=== PATIENT | male | born 1965 | race Caucasian/White ===

== ENCOUNTER 2018-03-09 13:41 | Emergency (ER) | payer MEDICAID, SELFPAY ==
[2018-03-09 13:43] VITALS: BP 145/85; PULSE 131; RESP 18; TEMP 37.2; O2SAT 96; BMI 25.6
[2018-03-09 14:31] VITALS: PULSE 97; O2SAT 97
--- NOTE | 2018-03-09 14:32 | ED.VISSUMM ---
- ER Visit Summary Date of Service: 03/09/18 Chief Complaint: Sinus pain History of Present Illness: The patient is a 52 M who presents with facial pain. He states his congestion is worse when he leans forward. He reports no change in his pain. He denies any double vision, blurred vision loss of vision. Denies ringing in his ears or decreased hearing. He denies postnasal drainage. He denies sore throat. He has a chronic cough. His cough is nonproductive. He denies any paresthesia, anesthesia buttocks. Denies clumsiness or falling. He states she has had sinus headaches in the past. Past medical history of depression anxiety. Physical Examination: Vital signs were remarkable heart rate 131. Repeat vital signs revealed a heart rate of 97. He appears in no distress. There is mild discomfort with tapping over the left maxillary sinus. Pupils equal round reactive paradoxic muscle intact. Sclerae anicteric. Conjunctive is not injected. TMs are normal. Nares patent no drainage noted. Posterior pharynx without erythema XA. Uvula is midline. Heart is regular without murmur, gallop or rub. S1 and S2 are normal. Lungs are clear to auscultation with good movement of air bilaterally. Test Results: None Emergency Department Course and Treatment: Patient was informed he probably has sinus pressure from his congestion. Recommended decongestant since there is no contraindication. Treatment Plan: Decongestant Disposition: Discharged to home Impression: Sinus headache This note was generated with [employer] dictation software. It may contain incorrect words, spelling, and punctuation that were not noted in review of the chart prior to signing ED Disposition - Plan for ED Patient: Disposition: Home or Assisted Living Chief Complaint: Headache Instructions: ED Headache Sinus Referrals: Yasir Parada MD [Primary Care Provider] - 10-14 Days if not better
[2018-03-09 15:04] VITALS: BP 135/77; PULSE 61; RESP 15; O2SAT 98
== END 2018-03-09 15:05 | disposition home or self-care (01) ==
PROVIDERS: Emergency Provider Emergency Medicine; Family Provider Family Medicine; PCP Family Medicine
DX: J34.89 Other specified disorders of nose and nasal sinuses (principal); F32.9 Major depressive disorder, single episode, unspecified; F41.9 Anxiety disorder, unspecified; Z79.899 Other long term (current) drug therapy; Z72.0 Tobacco use
CPT/HCPCS: 99282

== ENCOUNTER 2018-03-26 15:11 | Emergency (ER) | payer MEDICAID, SELFPAY ==
[2018-03-26 15:11] VITALS: BP 127/83; PULSE 85; PULSE 94; RESP 16; RESP 18; TEMP 37; TEMP 37.3; O2SAT 97; BMI 24.7
[2018-03-26 15:55] LABS: Absolute Lymphocyte Count 1.54 X10^3/ul (0.83-4.51); Absolute Neutrophil Count 4.8 X10^3/uL (2.0-7.7); Basophil# 0.05 X10^3/uL; Basophil% 0.7 % (0-1); Hematocrit 42.9 % (40-54); Hemoglobin 14.6 g/dl (13.0-16.5); Lymphocyte # 1.54 X10^3/ul (4.0); Lymphocyte % 20.8 % (19-41); Mean Corpuscular Hgb 30.7 pg (27.0-32.0); Mean Corpuscular Volume 90.1 fL (80-94); Mean Platelet Vol. 8.9 fl (6.2-12.0); Monocyte# 0.76 X10^3/uL; Monocyte% 10.2 % (0-10); Neutrophil # 4.76 X10^3/uL (2.7-7.7); Neutrophil % 64.2 % (47-70); Platelet Count 229 K/mm3 (150-450); RBC Distribution Width CV 13.2 % (11.6-14.6); RBC Distribution Width SD 43.4 fl (35.1-43.9); Red Blood Count 4.76 M/mm3 (4.6-6.2); White Blood Count 7.4 K/mm3 (4.4-11.0)
[2018-03-26 15:56] LABS: POSITIVE COUNT NO; POSITIVE DIFFERENTIAL NO; POSITIVE MORPHOLOGY NO
--- NOTE | 2018-03-26 16:04 | CT_ITS ---
STUDY: CT ABDOMEN AND PELVIS WITH CONTRAST REASON FOR EXAM: Male, 52 years old. Abdominal pain RADIATION DOSAGE (If Supplied By Facility): CTDIvol = ( 15.36 ) mGy, DLP = ( 959.28 ) mGycm TECHNIQUE: Transaxial images were obtained from the dome of the diaphragm to the symphysis pubis without oral contrast. 100 ml of Isovue 300 contrast was administered. Sagittal and coronal images were reconstructed. Individualized dose optimization techniques were used for this CT. COMPARISON: CT dated 09/25/2015. FINDINGS: The visualized lung bases are clear. The visualized portions of the heart and pericardium are within normal limits. There are no calcified gallstones present. The liver is within normal limits. There are no suspicious hepatic lesions. The spleen is normal in size. The pancreas is within normal limits. The adrenal glands are within normal limits. There are no renal or ureteral stones. There is no hydronephrosis. There are no focal renal lesions. Normal visualized stomach. There is no bowel obstruction or inflammation. The appendix is visualized and appears normal. The aorta is normal in caliber. There is no abdominal or pelvic free air, free fluid, fluid collection or lymphadenopathy. There are no destructive osseous lesions. There are stable degenerative changes in the lumbar spine. CT/Abdomen/Pelvis WITH Contrast IMPRESSION: No acute abdominal or pelvic pathology. Electronically Signed: Chip Martin, at 18:13 EDT Tel , Service support ,
[2018-03-26 16:07] LABS: ALB/GLOB Ratio 1.1 RATIO (0.9-2.4); AST(SGOT) 21 U/L (15-37); Alanine Aminotransfer ALT/SGPT 26 U/L (16-61); Albumin, Serum 3.9 g/dL (3.2-5.0); Alkaline Phosphatase 88 U/L (45-117); Anion Gap 6 (5-15); BUN 9 mg/dL (7-18); BUN/Creat Ratio 8.7 RATIO (10-20); Chloride 106 mmol/L (98-107); Creatinine, Serum 1.04 mg/dL (0.70-1.30); EST Glomerular Filtration Rate 79 mL/min (>60); Est Glom Filt Rate - Afr Amer 96 mL/min (>60); Globulin 3.7 g/dL (2.2-4.2); Glucose 82 mg/dL (74-106); Lipase 156 U/L (73-393); Potassium 3.8 mmol/L (3.5-5.1); Protein, Total 7.6 g/dL (6.4-8.2); Sodium Level 139 mmol/L (136-145)
--- NOTE | 2018-03-26 16:08 | RAD_ITS ---
STUDY: X-RAY CHEST REASON FOR EXAM: Male, 52 years old. Right upper quadrant pain TECHNIQUE: Frontal view of the chest COMPARISON: 11/02/2016 FINDINGS: The lungs are clear. There are no pleural effusions. There is no pneumothorax. The heart is normal in size. The visualized osseous structures are within normal limits. RAD/Chest 1 View IMPRESSION: No acute thoracic pathology. Electronically Signed: Chip Martin, at 16:41 EDT Tel , Service support ,
[2018-03-26] MEDS: 0.9% Normal Saline 1,000 ML 125 ML IV (16:30)
[2018-03-26 16:35] LABS: Lactic Acid 0.5 mmol/L (0.4-2.0)
--- NOTE | 2018-03-26 16:57 | ED.DCSUM_ITS ---
- ER Visit Summary Date of Service: 03/26/18 Chief Complaint: [Abdominal pain] History of Present Illness: The patient is a 52 M [presents the emergency department complaint of abdominal pain for over a week. Patient apparently has had a significant weight loss of close to 50 pounds over last 6 months. Patient complains of night sweats. Patient complains of pain when eating food mostly to the right upper quadrant. Patient has been seeing primary care physician and is currently being worked up and had an ultrasound today of the right upper quadrant. Patient got a call stating that his gallbladder was markedly collapsed and instructed him that he needed to come to the emergency department. Patient denies any chest pain or shortness of breath. Patient denies any fevers at home. He denies any diarrhea. Last bowel movement was this morning. Patient scheduled to have colonoscopy next week with Dr. Graciela Fair.] Physical Examination: [HEENT-PERRLA, EOMI. Cranial nerves II through XII grossly intact. TMs clear. Mucous membranes moist. No adenopathy. Cardiovascular-regular rate and rhythm without murmur or ectopy Lungs-clear to auscultation, chest wall stable without crepitus or subcu emphysema Abdomen-normoactive bowel sounds, soft. Patient has tender palpation over right upper quadrant with some guarding. There is no rebound, rigidity, or perineal signs. There is a negative Couch sign. Extremities-intact ?4, normal range of motion, normal pulses, atraumatic] Test Results: [CBC with differential obtained showed a white count of 7.4, hemoglobin 14.6, hematocrit 43, platelets 229. Chemistries unremarkable. LFTs were normal. Lipase was normal at 156. Lactate was normal 0.5. I did obtain the ultrasound report from today which was read as gallbladder markedly collapsed without evidence for Stella lithiasis. No pericholecystic fluid collection or convincing sonographic evidence for acute cholecystitis. No biliary dilatation.] CT scan of the abdomen and pelvis obtained was normal. Patient also had a chest x-ray that was normal. Emergency Department Course and Treatment: [] Treatment Plan: [Patient to keep his appointment with Dr. Graciela Fair for colonoscopy and patient may require EGD as well.] Disposition: [Discharged home in stable condition] Impression: [Abdominal pain-etiology uncertain] This note was generated with [employer] software. It may contain incorrect words, spelling, and punctuation that were not noted in review of the chart prior to signing ED Disposition - Plan for ED Patient: Chief Complaint: Abd Pain Referrals: Yasir Parada MD [Primary Care Provider] -
[2018-03-26 17:11] VITALS: BP 138/74; PULSE 74; RESP 18; O2SAT 96
--- NOTE | 2018-03-26 18:30 | ED.DEP ---
ED Disposition - Plan for ED Patient: Chief Complaint: Abd Pain Instructions: ED Abdominal Pain Unkn Cause Referrals: Yasir Parada MD [Primary Care Provider] - Graciela Fair MD [STAFF PHYSICIAN] - 5-7 Days
== END 2018-03-26 18:49 | disposition home or self-care (01) ==
PROVIDERS: Emergency Provider Emergency Medicine; Family Provider Family Medicine; PCP Family Medicine
DX: R10.11 Right upper quadrant pain (principal); J44.9 Chronic obstructive pulmonary disease, unspecified; E78.00 Pure hypercholesterolemia, unspecified; F12.90 Cannabis use, unspecified, uncomplicated; Z72.0 Tobacco use
CPT/HCPCS: 71045; 74177; 80053; 83605; 83690; 85025; 96360; 96361; 99283; J7030; Q9967; A4216

== ENCOUNTER 2018-04-01 12:58 | Day surgery (SDC) | payer MEDICAID, SELFPAY ==
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
[2018-04-01] VITALS (7 sets, daily range): BP systolic 81–112; BP diastolic 46–83; PULSE 72–81; RESP 16–18; TEMP 36.8; O2SAT 98–100; BMI 25.6
--- NOTE | 2018-04-01 | IMM_PTH ---
PATIENT: RACHEL SALMON LOC: EN U#:[id number] AGE/SX: 52/M ROOM: RE04/01/[address]: Dr. Onofre Salazar MD : 1965 BED: DIS: 04/01/2018 SPEC #: [id number] RECD: 04/03/18 11:13 STATUS: RIMA REQ #: [id number] JACINTO: 04/01/18 00:[address]: Onofre Salazar DEPT: IMMUNOHISTOCHEMISTRY RECD BY: Ana Cristina Villanueva ENTERED: 04/03/18 11:16 SP TYPE: IMMUNO OTHR DR: Dr. Yasir Parada MD Tissues: B - Stomach, NOS Procedures: H Pylori (initial) PHYSICIAN & INSTITUTION [place] [id number] SPECIMEN INFORMATION: Tissue Source: B ? Biopsy gastric antrum Clinical Info: Weight loss, nausea, heartburn, abdominal pain Specimen Number: [id number] CPT code: 77465 METHODOLOGY: Deparaffinized sections of prefer/formalin-fixed tissue or PAP/DQ stained slides are incubated with monoclonal/polyclonal antibodies/oligonucleotide probes. Localization is made via biotin free immunoperoxidase method. Appropriate controls are performed and reacted as expected. Results on target cell population are indicated in the following table: RESULTS: ANTIBODY / CLONE RESULT Block B H Pylori (polyclonal) negative These tests were developed and their performance characteristics determined by [facility]. They may not have been cleared or approved by the U.S. Food and Drug Administration. The FDA has determined that such clearance or approval is not necessary. INTERPRETATION: B. Gastric antrum, biopsy: Negative for Helicobacter pylori organisms. AM:misty 04/06/18
--- NOTE | 2018-04-01 14:00 | EGD_PTH ---
PATIENT: RACHEL SALMON LOC: EN U#:[id number] AGE/SX: 52/M ROOM: RE04/01/[address]: Dr. Onofre Salazar MD : 1965 BED: DIS: 04/01/2018 SPEC #: [id number] RECD: 04/01/18 15:21 STATUS: RIMA CHUCK #: [id number] JACINTO: 04/01/18 14:[address]: Onofre Salazar DEPT: SURGICAL PATHOLOGY RECD BY: Onofre Florian ENTERED: 04/02/18 10:09 SP TYPE: EGD BIOPSY REED DR: Dr. Yasir Parada MD Tissues: A - Jejunum, NOS B - Gastric mucous membrane C - Esophageal mucous membrane D - COLON BIOPSY Procedures: Surgery Specimen Level IV HEADER OPERATION: Colonoscopy, EGD ([facility]) PRE-OP DIAGNOSIS: Weight loss, nausea, heartburn, abdominal pain; family history of colon cancer; personal history of colon polyps TISSUE SUBMITTED: A ? Biopsy jejunum, B ? Biopsy gastric antrum, C ? Biopsy distal esophagus ? esophagitis, D ? Biopsy random colon MICROSCOPIC DIAGNOSIS A. Jejunum, biopsy: Focal gastric metaplasia. B. Gastric antrum, biopsy: Mild chronic gastritis. C. Distal esophagus, biopsy: Gastroesophageal junction mucosa with acute and chronic inflammation. 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 No evidence of dysplasia. D. Colon, random biopsy: No pathologic diagnosis. AM:misty 04/03/18 COMMENT B. The results of immunohistochemistry for Helicobacter pylori will be reported separately ([id number]). MICROSCOPIC DESCRIPTION Slides are reviewed. GROSS DESCRIPTION A - Received in fixative is one container labeled with the patient's name and designated biopsy jejunum. The specimen consists of one irregular fragment of light phillips soft tissue that measures 0.3 x 0.3 x 0.1 cm. The specimen is totally submitted in one cassette. B - Received in fixative is one container labeled with the patient's name and designated biopsy gastric antrum. The specimen consists of one irregular fragment of light phillips soft tissue that measures 0.4 x 0.3 x 0.1 cm. The specimen is totally submitted in one cassette. C - Received in fixative is one container labeled with the patient's name and designated distal esophagus. The specimen consists of one irregular fragment of light phillips soft tissue that measures 0.3 x 0.3 x 0.1 cm. The specimen is totally submitted in one cassette. D - Received in fixative is one container labeled with the patient's name and designated random colon biopsy. The specimen consists of one irregular fragment of light phillips soft tissue that measures 0.3 x 0.2 x 0.1 cm. The specimen is totally submitted in one cassette. / SJ:rg 04/02/18 TC:3 CPT: 93982 x4
--- NOTE | 2018-04-01 14:15 | PCM.OPRPT ---
Report of Operation Date of Procedure: 04/01/18 Pre-Operative Diagnosis: weight loss, abdominal pain , nausea, hostory of polyps Post-Operative Diagnosis: mild gastritis, distal esophagitis, normal colon, poor prep Surgery/Procedure Performed:: EGD with biopsy, Colonoscopy with biopsy analytical statistician: None Type of Anesthesia:: MAC Anesthesiologist: Phong Holland ASA3 Specimen's removed: jejunal, gastric, esophageal, random colon Description of Procedure: The patient was brought to the endoscopy suite. Sign in was performed verifying patient, site, planned procedure, critical nursing information, the patient was monitored with cardiac, pulse oximetric, and blood pressure monitoring devices. Monitored anesthetic care was provided for sedation. Following IV sedation and after the oropharynx was sprayed with Cetacaine spray, a video gastroscope was inserted in the oropharynx and advanced down the esophagus without difficulty. The scope was advanced through the stomach, through the pylorus through the duodenum to the proximal jejunum.the jejunum appeared unremarkable. The duodenum appeared unremarkable. There was mild erosive gastritis. This was biopsied. The remainder of the stomach appeared relatively unremarkable except for some again mild erosive proximal gastritis. There is felt to be significantly irregular Z line consistent with reflux esophagitis. Biopsies obtained to rule out Barr's esophagitis. The remainder the proximal esophagus was unremarkable. The patient was positioned for colonoscopy. A digital rectal exam was performed which revealed a relatively lax lower sphincter. Bowel prep was fair. The video colonoscope was inserted and advanced to the cecum as verified by the ileocecal valve, cecal base anatomic features and palpation. the entire colon and rectum were unremarkable. Random biopsies performed in the sigmoid area The patient tolerated the procedure well and was brought to recovery in stable condition
== END 2018-04-01 15:04 | disposition home or self-care (01) ==
LOC: EN 12:59 → AC 13:00
PROVIDERS: Family Provider Family Medicine; PCP Family Medicine; Visit Provider Surgery
PROC: 0DJD8ZZ Inspection of Lower Intestinal Tract, Via Natural or Artificial Opening Endoscopic (ICD-10-PCS; CPT 45378; principal; 2018-04-01 13:55)
DX: R19.4 Change in bowel habit (principal); R63.4 Abnormal weight loss; R10.11 Right upper quadrant pain; Z72.0 Tobacco use; K29.50 Unspecified chronic gastritis without bleeding; Z86.010 Personal history of colon polyps; Z80.0 Family history of malignant neoplasm of digestive organs
CPT/HCPCS: 43239; 45380; 88305; 88342; J7120

== ENCOUNTER → 2018-10-12 15:42 | Outpatient (CLI) | payer MEDICAID, SELFPAY ==
--- NOTE | 2018-10-12 15:51 | MRI_ITS ---
STUDY: MRI BRAIN WITH AND WITHOUT CONTRAST REASON FOR EXAM: Male, 53 years old. Hearing loss TECHNIQUE: Standardized multiplanar fat and water weighted pulse sequences were obtained. Gadavist 10 IV was administered for the contrast portion of the examination. COMPARISON: None. FINDINGS: Normal size of the ventricles and extra-axial spaces for the patient's age. There are a limited number of small white matter hyperintensities, distributed throughout the deep white matter tracts of the cerebral hemispheres, consistent with mild chronic white matter ischemic changes. There is no evidence for recent intracranial ischemia or other cause of cytotoxic edema on diffusion weighted imaging (DWI). Normal bilateral basal ganglia. Normal thalami. There is no extra-axial fluid accumulation. Normal flow voids within the major intracranial circulation suggesting patency by spin echo criteria. Normal venous enhancement. There is no enhancing intra-axial or extra-axial abnormality. Normal sella turcica, pituitary gland, infundibular stalk, optic chiasm and hypothalamus. Normal tectal plate and pineal gland. Normal midbrain, sanjeev and medulla. Normal cerebellum. Normal basal cisterns. Normal bilateral temporal bones. Normal bilateral internal auditory canals. No demonstrated orbital abnormality, within the constraints of a routine brain study. Normal visualized paranasal sinuses. Normal calvarium and skull base. Normal visualized soft tissue structures. Normal visualized upper cervical spine. MRI/Brain W/WO Contrast IMPRESSION: There is NO acute intracranial abnormality. There is minimal chronic ischemic gliosis in the white matter. There is NO abnormal enhancement. The 7th and 8th nerve complexes are unremarkable. There is NO mass or abnormal enhancement. The mastoid air cells are clear. Electronically Signed: Oh Jimenez MD at 4:33 EST , Service support ,
== END ==
PROVIDERS: Family Provider Family Medicine; PCP Family Medicine; Referring Provider Otolaryngology; Visit Provider Otolaryngology
DX: H90.5 Unspecified sensorineural hearing loss (principal)
CPT/HCPCS: 70553; A9585

== ENCOUNTER 2018-10-19 18:48 | Emergency (ER) | payer MEDICAID, SELFPAY ==
[2018-10-19 18:49] VITALS: BP 135/88; PULSE 85; RESP 16; TEMP 36.6; O2SAT 100; BMI 28.5
--- NOTE | 2018-10-19 19:00 | RAD_ITS ---
STUDY: X-RAY - CERVICAL SPINE REASON FOR EXAM: Male, 53 years old. Neck pain x 2 weeks, no known injury. TECHNIQUE: 3 view(s) of the cervical spine were obtained. COMPARISON: None FINDINGS: Normal anterior atlantoaxial articulation. Normal odontoid process. Normal cervical lordosis. There is multi-level endplate spondylosis. There is multi-level degenerative disc disease with multilevel disc space narrowing. Generally unremarkable cervical facet articulations. There is minor retrolisthesis of C4 on C5. There are early atherosclerotic vascular calcifications of the carotid arteries. Normal prevertebral soft tissues. There is no demonstrated osseous destructive process or acute fracture of the cervical spine. RAD/Cerv Spine 2 or 3 Views IMPRESSION: Multilevel degenerative changes of the cervical spine. Electronically Signed: Jose Dong MD at 19:27 EST , Service support ,
--- NOTE | 2018-10-19 19:55 | ED.VISSUMM ---
- ER Visit Summary Date of Service: 10/19/18 Chief Complaint: Left neck pain History of Present Illness: The patient is a 53 M with a history of arthritis in his neck presents with left-sided neck pain, worse when looking to the left for the past week. It was present on awakening one morning. He thinks that he slept in an unusual position. No direct trauma. No fever, chills, night sweats. No paresthesias or weakness in his upper extremities. No radiation of the pain. No radicular symptoms. Physical Examination: Mild tenderness paraspinally on the left in the cervical region but no midline tenderness, erythema, or fluctuance. Pain is somewhat worse on looking left. Normal strength and sensation is noted. Strong distal pulses. Test Results: Cervical spine x-ray revealed extensive degenerative changes but no fracture Emergency Department Course and Treatment: Her logic exam is normal. I do not feel he needs an emergent MRI. No evidence of paraspinal or epidural abscess. X-ray reveals degenerative changes. I will treat him with naproxen and Flexeril. He was referred to orthopedics. Treatment Plan: Disposition: Home stable Impression: Initial encounter acute left neck pain This note was generated with [employer] dictation software. It may contain incorrect words, spelling, and punctuation that were not noted in review of the chart prior to signing ED Disposition - Plan for ED Patient: Instructions: ED Neck Back Pain General Prescriptions: Naproxen [Naprosyn] 500 mg PO BID PRN #20 tablet Cyclobenzaprine [Flexeril] 10 mg PO TID PRN #20 tablet PRN Reason: Muscle Spasm Referrals: Ata Tena DO [STAFF PHYSICIAN] -
[2018-10-19 20:04] VITALS: BP 122/78; PULSE 80; RESP 14; O2SAT 98
== END 2018-10-19 20:09 | disposition home or self-care (01) ==
LOC: ED 19:25
PROVIDERS: Emergency Provider Emergency Medicine; Family Provider Family Medicine; PCP Family Medicine
DX: M54.2 Cervicalgia (principal)
CPT/HCPCS: 72040; 99282

== ENCOUNTER 2019-01-06 09:57 | Inpatient (IN) | payer MEDICAID, SELFPAY ==
[2019-01-06] VITALS (18 sets, daily range): BP systolic 93–117; BP diastolic 58–85; PULSE 66–98; RESP 16–27; TEMP 35.9–36.8; O2SAT 90–99; BMI 27.0; BMI 25.7
--- NOTE | 2019-01-06 10:24 | EKG12_ITS ---
Test Reason : CP Blood Pressure : / mmHG Vent. Rate : 097 BPM Atrial Rate : 097 BPM P-R Int : 124 ms QRS Dur : 094 ms QT Int : 350 ms P-R-T Axes : 075 087 068 degrees QTc Int : 444 ms Normal sinus rhythm Normal ECG Confirmed by LAKHWINDER MOHAN ([id number]), newspaper photo editor JOSEPH COPPOLA ([id number]) on 01/14/2019 9:24:14 AM Referred By: Sunshine Bundy Confirmed By:LAKHWINDER MOHAN
--- NOTE | 2019-01-06 10:24 | RAD_ITS ---
STUDY: X-RAY CHEST REASON FOR EXAM: Male, 53 years old. Cough. Chest pain. Shortness of breath. TECHNIQUE: AP and lateral views of the chest. COMPARISON: Comparison is made with prior study dated March 26, 2018. FINDINGS: EKG electrodes are seen. There now is evidence of a patchy infiltrates in both lower lobes worse on the left side. Hyperinflation. Follow-up is recommended. Normal size heart. Normal mediastinum and milla. Normal visualized pulmonary arteries. Normal visualized aortic arch and descending thoracic aorta. Normal visualized thoracic spine. Normal visualized ribs, clavicles, and shoulders. There is no demonstrated abnormality of the visualized soft tissue structures of the upper abdomen. RAD/Chest PA and Lateral IMPRESSION: Bibasilar patchy infiltrates worse on the left side. Electronically Signed: Forrest Chapman, at 11:24 EDT , Service support ,
[2019-01-06] MEDS: MethylPREDNISolone 125 MG/2 ML Vial IV (10:40)
[2019-01-06] MEDS: Morphine 4 MG/ML Syringe IV (10:40)
[2019-01-06] MEDS: Ondansetron 4 MG/2 ML Vial IV (10:40)
[2019-01-06] MEDS: Ipratropium/Albuterol Sulfate 3 ML AMPUL.NEB INHALATION ×3 (10:40→20:15)
[2019-01-06] MEDS: 0.9% Normal Saline 1,000 ML 999 ML IV (10:42)
[2019-01-06 10:54] LABS: Absolute Lymphocyte Count 1.29 X10^3/ul (0.83-4.51); Absolute Neutrophil Count 8.4 X10^3/uL (2.0-7.7); Basophil# 0.03 X10^3/uL; Basophil% 0.3 % (0-1); Eosinophil# 0.06 X10^3/uL; Eosinophils% 0.5 % (0-5); Hematocrit 42.2 % (40-54); Hemoglobin 14.6 g/dl (13.0-16.5); Lymphocyte # 1.29 X10^3/ul (4.0); Lymphocyte % 11.8 % (19-41); Mean Corp Hgb Conc 34.6 g/gl (32-36); Mean Corpuscular Hgb 30.3 pg (27.0-32.0); Mean Corpuscular Volume 87.6 fL (80-94); Mean Platelet Vol. 9.1 fl (6.2-12.0); Monocyte# 1.11 X10^3/uL; Monocyte% 10.2 % (0-10); Neutrophil % 76.8 % (47-70); POSITIVE COUNT NO; POSITIVE DIFFERENTIAL NO; POSITIVE MORPHOLOGY NO; Platelet Count 247 K/mm3 (150-450); RBC Distribution Width SD 41.1 fl (35.1-43.9); Red Blood Count 4.82 M/mm3 (4.6-6.2); White Blood Count 10.9 K/mm3 (4.4-11.0)
[2019-01-06 11:03] LABS: D-Dimer Quantitative (DVT/PE) 1.15 FEU/ug/m (0.27-0.49)
--- NOTE | 2019-01-06 11:04 | CT_ITS ---
STUDY: CTA CHEST REASON FOR EXAM: Male, 53 years old. Cough, hemoptysis, 1.5 pack per day smoker, COPD RADIATION DOSAGE (If Supplied By Facility): CTDIvol = ( 11.40 ) mGy, DLP = ( 451.22 ) mGycm TECHNIQUE: The examination was performed with the intravenous administration of 100ml IV Isovue 370. Post-processing of the angiographic images was performed, with multiplanar reformation and 3D reconstruction. Individualized dose optimization techniques were used for this CT. COMPARISON: X-ray chest 01/06/2018, 03/26/2018. FINDINGS: Supraclavicular: No acute process. Body wall soft tissues: No acute process. Osseous structures: No acute process. Upper abdomen: No acute process. Mediastinum: Normal esophagus. Several subcentimeter lymph nodes are present in the mediastinum. Mildly enlarged lymph node are present in the right hilum, the largest measuring 1.6 cm. Mildly enlarged lymph nodes are present in the left hilum, the largest measuring 13 mm. Cardiovascular: Normal heart size. Slender pericardial fluid. Minimal coronary calcifications. Mild calcifications of the aortic valve annulus and mitral valve annulus. Nondilated aorta. Minimal arch atherosclerosis. Pulmonary arteries: Minimally ectatic central pulmonary arteries, main pulmonary artery 2.9 cm. No central pulmonary embolus. No evidence of peripheral pulmonary embolus. Lungs: Prominent features of centrilobular emphysema. At the lung bases bilaterally, greatest in the left lower lobe, there are innumerable ground glass tree-in-bud nodular opacities, the opacities becoming partially confluent the left lung base, associated with diffuse mild bronchial wall thickening in the lower lobes with mild bronchiectasis. The distributed pattern of tree-in-bud nodular opacities favors an acute infectious process. The confluent regions of ground glass opacity in the left lower lobe may reflect the presence of alveolar hemorrhage. In the lingula, there is a subsegmental focus of consolidation with a greatest dimension of approximately 2.6 cm, concerning for pneumonia. There are a few scattered small discrete solid pulmonary nodules, chronic features. The largest of these lies at the left upper lobe apex medial pleural margin, [address]/CTA Chest W/WO Contrast IMPRESSION: As noted above pulmonary features are most consistent with an acute infectious process. With the tree-in-bud nodular pattern consider the possibility of atypical organisms. Confluent opacities in both lower lobe may reflect more severe infectious process, but could also reflect the presence of alveolar hemorrhage in the setting of hemoptysis. Dense subsegmental consolidation of a portion of the right middle lobe is consistent with consolidating pneumonia. Severe COPD/emphysema. Mild hilar lymphadenopathy bilaterally. Electronically Signed: Onofre Rousseau MD at 12:48 EDT Tel , Service support ,
[2019-01-06 11:07] LABS: Anion Gap 5 (5-15); BUN 12 mg/dL (7-18); BUN/Creat Ratio 12.1 RATIO (10-20); Calcium,Total 8.8 mg/dL (8.5-10.1); Chloride 101 mmol/L (98-107); Creatinine, Serum 0.99 mg/dL (0.70-1.30); EST Glomerular Filtration Rate 84 mL/min (>60); Est Glom Filt Rate - Afr Amer 101 mL/min (>60); Estimated Creatinine Clearance 94.71 ml/min; Glucose 103 mg/dL (74-106); Potassium 4.2 mmol/L (3.5-5.1); Sodium Level 133 mmol/L (136-145)
[2019-01-06 11:15] LABS: Lactic Acid 0.7 mmol/L (0.4-2.0)
[2019-01-06] MEDS: DiphenhydrAMINE 50 MG/ML Syringe IV (12:11)
--- NOTE | 2019-01-06 13:05 | ED.VISSUMM ---
- ER Visit Summary Date of Service: 01/06/19 Chief Complaint: Shortness of breath History of Present Illness: The patient is a [address] crooks. He reports that he has a cough that began 2 days ago. He reports it is productive of white sputum. States this morning he had a nosebleed and was coughing up blood at that time. He is coughed up no blood otherwise. Also states that he has severe shortness of breath began 2 days ago as well. He has had subjective fever and chills. He has a diffuse chest pain that began today. That is 10 out of 10 at worst 9-10 currently. Is worsened by exertion relieved by nothing. He denies any associated nausea, vomiting, or diaphoresis. Physical Examination: Vitals: Stable. Afebrile. General: Well-nourished and well-developed. Head: Normocephalic atraumatic. Neck: Supple, no lymphadenopathy. No JVD. Nontender. Cardiovascular: Regular rate and rhythm. No murmurs. Respiratory: No respiratory distress. Clear to auscultation bilaterally. Poor air movement. Abdominal: Soft, nontender, nondistended, normal bowel sounds. No guarding, rebound, or peritoneal signs. Back: Nontender. Extremities: Nontender, no edema. Skin: Normal color, no rash. Neurologic: Alert and oriented ?3. Cranial nerves II through XII are intact. Normal strength and sensation. Psych: Normal affect. Test Results: EKG is sinus at [address] changes. Is unchanged from 2009. Troponin is negative. Chem-7 shows a sodium 133. CBC shows segmented neutrophils 77 lymphocytes of 12. Lactic acid 0.7. Clinical Impression(s) from Imaging Studies Chest X-Ray 01/06/19 10:24 IMPRESSION: Bibasilar patchy infiltrates worse on the left side. Electronically Signed: Forrest Chapman, at 11:24 EDT , Service support , Chest CTA 01/06/19 11:04 IMPRESSION: As noted above pulmonary features are most consistent with an acute infectious process. With the tree-in-bud nodular pattern consider the possibility of atypical organisms. Confluent opacities in both lower lobe may reflect more severe infectious process, but could also reflect the presence of alveolar hemorrhage in the setting of hemoptysis. Dense subsegmental consolidation of a portion of the right middle lobe is consistent with consolidating pneumonia. Severe COPD/emphysema. Mild hilar lymphadenopathy bilaterally. Electronically Signed: Onofre Rousseau MD at 12:48 EDT Tel , Service support , Emergency Department Course and Treatment: Patient was treated with albuterol and Atrovent aerosols. He was given Solu-Medrol, Rocephin, Zithromax IV. He is resting comfortably. Treatment Plan: Patient has bilateral infiltrates with dyspnea. He was discussed with Dr. Bundy and will be admitted for further evaluation and treatment. Disposition: Admitted in improved condition. Impression: 1. Pneumonia, community-acquired. 2. COPD. This note was generated with [employer] software. It may contain incorrect words, spelling, and punctuation that were not noted in review of the chart prior to signing ED Disposition - Plan for ED Patient: Referrals: Yasir Parada MD [Primary Care Provider] -
--- NOTE | 2019-01-06 13:07 | HP.PCM_ITS ---
History of Present Illness Date of Admission: 01/06/19 Chief Complaint: shortness of breath, cough The patient is a 53 year old M with a PMH as listed who was admitted via the ED of 01/06/19 with a complaint of shortness of breath and cough for 2 days prior to admission. Cough is productive of whitish sputum, and he has associated anorexia and generalised malaise. His symptoms were not getting better so he decided to come into the ED today. He denied any assisted fever or chills and did have mild pleuritic chest pain with coughing. Review of systems otherwise negative. In the ED, he was tachypneic breathing at 27 and required 2 L of oxygen to maintain saturation above 90%. Bilevel otherwise stable. CBC was unremarkable and BMP was significant for 24 sodium 133. Chest x-ray showed bilateral basilar patchy infiltrates worse on the left side and CT angiogram showed tree-in-bud nodular pattern and confluent opacities in both lower lobes which may reflect infectious process as well as dense subsegmental consolidation and portion of right middle lobe as well as severe COPD and emphysema. He has been admitted to be managed for community-acquired pneumonia and COPD exacerbation. [] Past Medical History Past Medical History (Chronic Problems): Chronic Problems History of alcohol use (Chronic) Allergies clindamycin Allergy (Verified 01/06/19 10:19) Hives iodine Allergy (Verified 01/06/19 10:19) Swelling Penicillins [PCN] Adverse Reaction (Verified 01/06/19 10:) Upset Stomach Home Medications: Ambulatory Orders Medication Instructions Recorded NK 01/06/19 Surgical History: no surgical history Psychiatric History: No pertinent psych hx [facility]: - [facility] [place] Smoking Status: Heavy Smoker (>10/day) - smokes 1-2 packs daily Alcohol: None Drugs: None - *Family History Maternal History Items: Heart Disease, Hypertension Review of Systems Constitutional: Reports: Anorexia, Malaise, Weakness, Fatigue. Denies: Chills, Fever Eyes: Denies: Blurred vision HEENT: Denies: Head Aches, Sinus Congestion, Sinus Drainage Cardiovascular: Denies: Chest Pain, Chest Pressure, Chest Tightness, Light Headedness, Orthopnea, Palpitations, Paroxysmal Noc. Dyspnea Respiratory: Reports: Cough, Pleuritic Pain, Shortness of Breath, Shortness of breath at rest, Shortness of breath upon exertion, Sputum production, Wheezing Gastrointestinal: Denies: Abdominal Pain, Nausea, Vomiting Genitourinary: Denies: Dysuria Musculoskeletal: Denies: Joint Pain, Joint Tenderness Skin: Denies: Rash, Wounds Neurological: Denies: Numbness, Tingling, Focal weakness Psychiatric: Denies: Anxiety, Depression, Homicidal Ideations, Suicidal Ideations Hematologic/ Lymphatic: Denies: Easy Bruising, Easy Bleeding VTE Information - Inpt Only VTE Present on Admission: No VTE Pharm Prophylaxis ordered?: Yes - Physical Exam General: Alert, Oriented x3, Cooperative, No apparent distress HEENT: Atraumatic, PERRLA, EOMI, Normocephalic Oral: Dry Mucosa Neck: Supple, No JVD, Negative Carotid Bruits Lungs: - - decreased breath sounds bibasally, with mild expiratory wheezes and crackles. on 3L of oxygen Cardiovascular: Regular rate, Regular Rhythm, Normal S1, Normal S2, No murmurs Abdomen: Bowel Sounds Present, Soft, Non Tender Extremities: No clubbing, No cyanosis, No edema, Capillary Refill Less than 3 Seconds Skin: No rashes, No breakdown Musculoskeletal: No Tenderness to Palpation of Joints or Extremities Lymphatic: No Cervical, Supraclavicular, or Inguinal Adenopathy Neurological: Cranial nerves II-XII grossly intact, Neuro grossly intact, Motor Exam 5/5 strength throughout Psych/Mental Status: Normal Affect, Appropriate, Alert and oriented to time, p lace, person, mood and affect Vital Signs Temp Pulse Resp BP Pulse Ox 98.2 F 87 18 117/76 99 01/06/19 12:07 01/06/19 12:07 01/06/19 12:07 01/06/19 12:07 01/06/19 12:07 Oxygen Flow Rate (L/min) 2 Oxygen Delivery Method Venturi Mask Weight: 199 lb 1.239 oz Body Mass Index (BMI) 27.0 Laboratory Tests Past 24 Hrs 01/06/19 01/06/19 01/06/19 10:35 10:35 10:35 WBC 10.9 RBC 4.82 Hgb 14.6 Hct 42.2 MCV 87.6 MCH 30.3 MCHC 34.6 RDW 13.0 RDW Differential 41.1 Plt Count 247 MPV 9.1 Immature Gran % (Auto) 0.400 Neut % (Auto) 76.8 H Lymph % (Auto) 11.8 L Greer % (Auto) 10.2 H Eos % (Auto) 0.5 Baso % (Auto) 0.3 Absolute Neuts (auto) 8.4 H Absolute Lymphs (auto) 1.29 Total Counted Not Reportable D-Dimer Quant (PE/DVT) 1.15 H* Sodium 133 L Potassium 4.2 Chloride 101 Carbon Dioxide 27.0 Anion Gap 5 BUN 12 Creatinine 0.99 Estim Creat Clear Calc 94.71 Est GFR (MDRD) Af Amer 101 Est GFR (MDRD) Non-Af 84 BUN/Creatinine Ratio 12.1 Glucose 103 Lactic Acid Calcium 8.8 Troponin I < 0.015 01/06/19 10:35 WBC RBC Hgb Hct MCV MCH MCHC RDW RDW Differential Plt Count MPV Immature Gran % (Auto) Neut % (Auto) Lymph % (Auto) Greer % (Auto) Eos % (Auto) Baso % (Auto) Absolute Neuts (auto) Absolute Lymphs (auto) Total Counted D-Dimer Quant (PE/DVT) Sodium Potassium Chloride Carbon Dioxide Anion Gap BUN Creatinine Estim Creat Clear Calc Est GFR (MDRD) Af Amer Est GFR (MDRD) Non-Af BUN/Creatinine Ratio Glucose Lactic Acid 0.7 Calcium Troponin I Diagnostic Data Chest X-Ray 01/06/19 10:24 IMPRESSION: Bibasilar patchy infiltrates worse on the left side. Electronically Signed: Forrest Chapman, at 11:24 EDT , Service support , Chest CTA 01/06/19 11:04 IMPRESSION: As noted above pulmonary features are most consistent with an acute infectious process. With the tree-in-bud nodular pattern consider the possibility of atypical organisms. Confluent opacities in both lower lobe may reflect more severe infectious process, but could also reflect the presence of alveolar hemorrhage in the setting of hemoptysis. Dense subsegmental consolidation of a portion of the right middle lobe is consistent with consolidating pneumonia. Severe COPD/emphysema. Mild hilar lymphadenopathy bilaterally. Electronically Signed: Onofre Rousseau MD at 12:48 EDT Tel , Service support , Assessment/Plan All Active Problems Pain, dental (Acute) 53 y/o male admitted with a complaint of shortness of breath and productive cough 1. Community acquired pneumonia * admit with telemetry to PCU * CXR showed bibasilar patchy infiltrates worse on left side * CTA showed tree in bud nodular pattern, confluent opacities in lower lobe and dense subsegmental consolidation of portion of right middle lobe consistent with consolidating pneumnia, as well as severe COPD/emphysema nad mild hilar lymphadenopathy bilaterally * no leucocytosis * start IV ceftriaxone and IV azithromycin * hydrate with IVF NS * Mucinex cough tablets * titrate oxygen to maintain saturation more than 90% * incentive spirometry * respiratory panel, sputum for strep and Legionella. Sputum culture * 2. Acute hypoxic respiratory insufficiency due to Community acquired pneumonia * as under 1 * 3. COPD exacerbation * no official diagnosis of COPD, but has smokes one pack for many years. * Chest CT showed severe COPD and emphysema * management as under 1 * will give breathing treatments and iV solumedrol * 4. Hyponatremia: mild. Due to dehydration. na is 133. Hydrate and monitor DVT prophylaxis: lovenox Code Visit Inpatient E&M: 34329 Init Hosp L3
--- NOTE | 2019-01-06 13:10 | ED.DCSUM_ITS ---
- ER Visit Summary Date of Service: 01/06/19 Chief Complaint: Shortness of breath History of Present Illness: The patient is a [address] crooks. He reports that he has a cough that began 2 days ago. He reports it is productive of white sputum. States this morning he had a nosebleed and was coughing up blood at that time. He is coughed up no blood otherwise. Also states that he has severe shortness of breath began 2 days ago as well. He has had subjective fever and chills. He has a diffuse chest pain that began today. That is 10 out of 10 at worst 9-10 currently. Is worsened by exertion relieved by nothing. He denies any associated nausea, vomiting, or diaphoresis. Physical Examination: Vitals: Stable. Afebrile. General: Well-nourished and well-developed. Head: Normocephalic atraumatic. Neck: Supple, no lymphadenopathy. No JVD. Nontender. Cardiovascular: Regular rate and rhythm. No murmurs. Respiratory: No respiratory distress. Clear to auscultation bilaterally. Poor air movement. Abdominal: Soft, nontender, nondistended, normal bowel sounds. No guarding, rebound, or peritoneal signs. Back: Nontender. Extremities: Nontender, no edema. Skin: Normal color, no rash. Neurologic: Alert and oriented ?3. Cranial nerves II through XII are intact. Normal strength and sensation. Psych: Normal affect. Test Results: EKG is sinus at [address] changes. Is unchanged from 2009. Troponin is negative. Chem-7 shows a sodium 133. CBC shows segmented neutrophils 77 lymphocytes of 12. Lactic acid 0.7. Clinical Impression(s) from Imaging Studies Chest X-Ray 01/06/19 10:24 IMPRESSION: Bibasilar patchy infiltrates worse on the left side. Electronically Signed: Forrest Chapman, at 11:24 EDT , Service support , Chest CTA 01/06/19 11:04 IMPRESSION: As noted above pulmonary features are most consistent with an acute infectious process. With the tree-in-bud nodular pattern consider the possibility of atypical organisms. Confluent opacities in both lower lobe may reflect more severe infectious process, but could also reflect the presence of alveolar hemorrhage in the setting of hemoptysis. Dense subsegmental consolidation of a portion of the right middle lobe is consistent with consolidating pneumonia. Severe COPD/emphysema. Mild hilar lymphadenopathy bilaterally. Electronically Signed: Onofre Rousseau MD at 12:48 EDT Tel , Service support , Emergency Department Course and Treatment: Patient was treated with albuterol and Atrovent aerosols. He was given Solu-Medrol, Rocephin, Zithromax IV. He is resting comfortably. Treatment Plan: Patient has bilateral infiltrates with dyspnea. He was discussed with Dr. Bundy and will be admitted for further evaluation and treatment. Disposition: Admitted in improved condition. Impression: 1. Pneumonia, community-acquired. 2. COPD. This note was generated with [employer] software. It may contain incorrect words, spelling, and punctuation that were not noted in review of the chart prior to signing ED Disposition - Plan for ED Patient: Referrals: Yasir Parada MD [Primary Care Provider] -
--- NOTE | 2019-01-06 13:28 | CASEMGMT ---
RN CM Assessment Introduced role of RN CM to patient.? Patient is alert, oriented and able?to participate in RN CM Assessment. ?Care providers, pharmacy, and demographics verified. Presentation: Cough, Hemoptysis, Fatigue, Night Sweats- past few days. Had epistaxis. Admit Dx: COPD Exacerbation, CAP. Re-Admit: No Barriers/Issues: Patient currently living at [facility], plans to return there when discharged. States has transportation issues, does drive when he has a car, walks or takes bus. Has [employer], this senior grant writer discussed transportation through [employer] for appointments- patient states that he is aware of this and has used in the past but waited 3hrs so not apt to utilize again, however states does have the contact information if needs to use in the future. PCP: Yasir Parada. States that he is switching PCP but does not know the new ones name, states had an appointment scheduled today with the WIRE WRAPPING MACHINE OPERATOR at 11:30am but had to cancel since did not feel well and came to ER. Specialists: None Preferred [facility]acy: [facility] Insurance: [employer] Rx Benefit: Yes? LNOK: Friend Raissa Driver LW/HPOA: None, Would like Information Living Arrangements:?Currently living at the [facility]. ADL?s: Independent with ambulation and ADL's Transportation: see above Issue, States unsure of Method of transportation on DC DME: None HHC: None SNF: None Goal: Return to the [facility], does not think will have any needs. Would like HPOA/LW and Transportation Info/Resources. DC PLAN: Home-[facility] with possible Home Oxygen. RICARDO Borges
[2019-01-06] MEDS: Ceftriaxone 1 GM/50 ML BAG IV ×2 (13:29→22:22)
[2019-01-06] MEDS: Acetaminophen 325 MG Tablet 650 MG PO (15:12)
[2019-01-06] MEDS: 0.9% Normal Saline 1,000 ML 100 ML IV (15:13)
[2019-01-06] MEDS: Ketorolac 30 MG/ML Syringe IV (16:18)
[2019-01-06 17:00] LABS: Bedside Glucose 261 mg/dL (70-110)
[2019-01-06] MEDS: guaiFENesin 1,200 MG Tablet 1200 MG PO (22:22)
[2019-01-06] MEDS: 0.9% NaCl Peripheral Flush Adult/Peds IV (22:23)
[2019-01-06 22:36] LABS: Bedside Glucose 170 mg/dL (70-110)
[2019-01-07] VITALS (19 sets, daily range): BP systolic 89–112; BP diastolic 51–77; PULSE 56–95; RESP 16–20; TEMP 36.4–37.3; O2SAT 93–97
[2019-01-07] MEDS: 0.9% Normal Saline 1,000 ML 100 ML IV (02:02)
[2019-01-07] MEDS: Acetaminophen 325 MG Tablet 650 MG PO ×2 (06:13→14:50)
[2019-01-07 06:25] LABS: Absolute Lymphocyte Count 0.74 X10^3/ul (0.83-4.51); Absolute Neutrophil Count 10.6 X10^3/uL (2.0-7.7); Basophil# 0.01 X10^3/uL; Basophil% 0.1 % (0-1); Hematocrit 39.6 % (40-54); Hemoglobin 13.4 g/dl (13.0-16.5); Lymphocyte # 0.74 X10^3/ul (4.0); Lymphocyte % 6.2 % (19-41); Mean Corp Hgb Conc 33.8 g/gl (32-36); Mean Corpuscular Hgb 29.8 pg (27.0-32.0); Mean Platelet Vol. 9.3 fl (6.2-12.0); Monocyte# 0.54 X10^3/uL; Monocyte% 4.5 % (0-10); Neutrophil # 10.56 X10^3/uL (2.7-7.7); Neutrophil % 88.8 % (47-70); Platelet Count 240 K/mm3 (150-450); RBC Distribution Width CV 12.9 % (11.6-14.6); RBC Distribution Width SD 40.9 fl (35.1-43.9); White Blood Count 11.9 K/mm3 (4.4-11.0)
[2019-01-07 06:28] LABS: POSITIVE COUNT NO; POSITIVE DIFFERENTIAL NO; POSITIVE MORPHOLOGY NO
[2019-01-07 06:37] LABS: Anion Gap 5 (5-15); BUN 16 mg/dL (7-18); BUN/Creat Ratio 17.4 RATIO (10-20); Calcium,Total 8.7 mg/dL (8.5-10.1); Chloride 107 mmol/L (98-107); Creatinine, Serum 0.92 mg/dL (0.70-1.30); EST Glomerular Filtration Rate 91 mL/min (>60); Est Glom Filt Rate - Afr Amer 110 mL/min (>60); Estimated Creatinine Clearance 101.92 ml/min; Glucose 145 mg/dL (74-106); Potassium 4.9 mmol/L (3.5-5.1); Sodium Level 139 mmol/L (136-145)
[2019-01-07 06:50] LABS: Bedside Glucose 197 mg/dL (70-110)
[2019-01-07] MEDS: Ipratropium/Albuterol Sulfate 3 ML AMPUL.NEB INHALATION ×4 (07:11→18:40)
[2019-01-07] MEDS: Ceftriaxone 1 GM/50 ML BAG IV ×2 (09:30→21:39)
[2019-01-07] MEDS: guaiFENesin 1,200 MG Tablet 1200 MG PO ×2 (09:32→21:39)
[2019-01-07] MEDS: Enoxaparin 40 MG/0.4 ML Syringe SC (09:41)
--- NOTE | 2019-01-07 10:24 | CASEMGMT ---
Addendum entered by Dodie Torres 01/07/19 14:05: SW checked back with patient to see if he had any questions about advance directives. He said he has not even had a chance to look at them. He said he is not feeling good. SW told him that is fine SW just wanted to answer any questions he may have. SW also told him again SW is able to help if he would like. He did not want to do them right now. Dodie AMOS Original Note: SW spoke with patient as he wanted more information on advance directives and he told the ornamental metal erector he lost 10 lbs because he had no food to eat. SW asked patient if he needed SW to explain the Healthcare POA or Healthcare LW. He declined and told SW to leave the documents and he will fill them out. He said this will give him something to do. SW offered to help him with documents and he declined. SW told him to ask for SW if he has any questions and not to sign with out a notary or 2 non family witnesses. LIZBETH also told him ornamental metal erector mentioned that he didn't have any food to eat. LIZBETH offered a list of local churches that provide free meals. He said he has the list, but was too embarrassed to go. Dodie AMOS
[2019-01-07 11:41] LABS: Bedside Glucose 221 mg/dL (70-110)
--- NOTE | 2019-01-07 12:00 | PCM.PROGNOTE ---
<Jeanne Hong - Last Filed: 01/07/19 12:06> Subjective: Patient seen and examined. Continues to complain of shortness of breath and cough. Denies fever, chills. States cough is becoming more productive. - Physical Exam General: Alert, Oriented x3, Cooperative HEENT: Atraumatic, PERRLA, EOMI, Normocephalic Neck: Supple, No JVD, Negative Carotid Bruits Lungs: Diminished, - - Minimal crackles bilateral bases Cardiovascular: Regular rate, Regular Rhythm, Normal S1, Normal S2, No murmurs Abdomen: Bowel Sounds Present, Soft, Non Tender, Non-Distended Extremities: No clubbing, No cyanosis, No edema, Capillary Refill Less than 3 Seconds Skin: No rashes, No breakdown Musculoskeletal: No Tenderness to Palpation of Joints or Extremities Neurological: Cranial nerves II-XII grossly intact, Neuro grossly intact Psych/Mental Status: Normal Affect, Appropriate Vital Signs Temp Pulse Resp BP Pulse Ox 98.5 F 74 20 H 89/59 L 93 01/07/19 09:27 01/07/19 11:07 01/07/19 11:07 01/07/19 09:27 01/07/19 10:00 Oxygen Flow Rate (L/min) 1 Oxygen Delivery Method Nasal Cannula Weight: 189 lb 9.561 oz Body Mass Index (BMI) 25.7 Intake and Output for Last 24 Hours 01/05/19 01/06/19 01/07/19 23:59 23:59 23:59 Intake Total 1318 / 1318 1915 / 1915 Output Total 200 / 200 1000 / 1000 Balance 1118 / 1118 915 / 915 Microbiology Past 72 Hours 01/06/19 17:23 Streptococcus pneumoniae Antigen (M - Final Urine, Clean Catch 01/06/19 17:23 Legionella Antigen - Final Urine, Clean Catch Laboratory Tests Past 24 Hrs 01/07/19 01/07/19 05:45 05:45 WBC 11.9 H RBC 4.50 L Hgb 13.4 Hct 39.6 L MCV 88.0 MCH 29.8 MCHC 33.8 RDW 12.9 RDW Differential 40.9 Plt Count 240 MPV 9.3 Immature Gran % (Auto) 0.400 Neut % (Auto) 88.8 H Lymph % (Auto) 6.2 L [place] % (Auto) 4.5 Eos % (Auto) 0.0 Baso % (Auto) 0.1 Absolute Neuts (auto) 10.6 H Absolute Lymphs (auto) 0.74 L Total Counted Not Reportable Sodium 139 Potassium 4.9 Chloride 107 Carbon Dioxide 27.0 Anion Gap 5 BUN 16 Creatinine 0.92 Estim Creat Clear Calc 101.92 Est GFR (MDRD) Af Amer 110 Est GFR (MDRD) Non-Af 91 BUN/Creatinine Ratio 17.4 Glucose 145 H Calcium 8.7 POC Glucose 01/07/19 01/07/19 01/06/19 11:33 06:18 22:20 POC Glucose 221 H 197 H 170 H 01/06/19 16:50 POC Glucose 261 H Medical Necessity - Tobacco Use Smoking Status: Heavy Smoker (>10/day) Assessment/Plan All Active Problems Pain, dental (Acute) 1. Acute hypoxic respiratory insufficiency secondary to acute community-acquired pneumonia and COPD exacerbation-continue supplement oxygen to maintain O2 at or above 90%. Wean oxygen as tolerated. Walking pulse ox prior to discharge. 2. Acute community acquired pneumonia-CT of chest on admission shows acute infectious process, tree-in-bud nodular pattern possibly due to atypical organisms. Confluent opacities in both lower lobe. Dense subsegmental consolidation of a portion of the right middle lobe consistent with consolidating pneumonia. Severe COPD. Urine negative for strep and Legionella. Sputum culture pending. Continue IV azithromycin and IV Rocephin. Albuterol and DuoNeb aerosols. IS. 3. COPD exacerbation-CT with evidence of severe COPD as noted above. No formal PFTs. Recommend outpatient follow-up with pulmonary medicine after resolve of acute pneumonia for pulmonary function testing and further evaluation and management of COPD. IV Solu-Medrol. Albuterol and DuoNeb aerosols. 4. Mild hyponatremia, secondary to dehydration-resolved. 5. Tobacco dependence-encourage smoking cessation. DVT prophylaxis-Lovenox subcu This patient was seen by KIM Moore under the supervision of Dr. Bundy. <Sunshine Bundy - Last Filed: 01/07/19 14:34> - Physical Exam Vital Signs Temp Pulse Resp BP Pulse Ox 98.5 F 74 20 H 89/59 L 93 01/07/19 09:27 01/07/19 11:07 01/07/19 11:07 01/07/19 09:27 01/07/19 10:00 Oxygen Flow Rate (L/min) 1 Oxygen Delivery Method Nasal Cannula Weight: 189 lb 9.561 oz Body Mass Index (BMI) 25.7 Intake and Output for Last 24 Hours 01/05/19 01/06/19 01/07/19 23:59 23:59 23:59 Intake Total 1318 / 1318 3182 / 3182 Output Total 200 / 200 1500 / 1500 Balance 1118 / 1118 1682 / 1682 Microbiology Past 72 Hours 01/06/19 14:47 Respiratory Panel (PCR) - Final Mucosa - Nasopharyngeal Rhinovirus 01/07/19 10:35 Gram Stain - Final Sputum, Expectorated/Coughed 01/06/19 17:23 Streptococcus pneumoniae Antigen (M - Final Urine, Clean Catch 01/06/19 17:23 Legionella Antigen - Final Urine, Clean Catch Laboratory Tests Past 24 Hrs 01/07/19 01/07/19 05:45 05:45 WBC 11.9 H RBC 4.50 L Hgb 13.4 Hct 39.6 L MCV 88.0 MCH 29.8 MCHC 33.8 RDW 12.9 RDW Differential 40.9 Plt Count 240 MPV 9.3 Immature Gran % (Auto) 0.400 Neut % (Auto) 88.8 H Lymph % (Auto) 6.2 L [place] % (Auto) 4.5 Eos % (Auto) 0.0 Baso % (Auto) 0.1 Absolute Neuts (auto) 10.6 H Absolute Lymphs (auto) 0.74 L Total Counted Not Reportable Sodium 139 Potassium 4.9 Chloride 107 Carbon Dioxide 27.0 Anion Gap 5 BUN 16 Creatinine 0.92 Estim Creat Clear Calc 101.92 Est GFR (MDRD) Af Amer 110 Est GFR (MDRD) Non-Af 91 BUN/Creatinine Ratio 17.4 Glucose 145 H Calcium 8.7 POC Glucose 01/07/19 01/07/19 01/06/19 11:33 06:18 22:20 POC Glucose 221 H 197 H 170 H 01/06/19 16:50 POC Glucose 261 H Assessment/Plan Patient seen by Jeanne Hong NP-C under my supervision Patient still complains of shortness of breath, but it is getting better. He is still coughing. He has no fever or chills. review of systems is otherwise negative. He tested positive for rhinovirus. o/e: Vital Signs Height 6 ft Weight: 189 lb 9.561 oz Weight in Pounds 189.6 lbs Pulse Ox 93 Temperature 98.5 F Pulse Rate 74 Respiratory Rate 20 Blood Pressure [BP] 89/59 Blood Pressure 89/59 Blood Pressure Position [BP] Left Lateral Blood Pressure Position Semi-Fowlers General: Alert, Oriented x3, Cooperative, No apparent distress HEENT: Atraumatic, PERRLA, EOMI, Normocephalic Oral: Dry Mucosa Neck: Supple, No JVD, Negative Carotid Bruits Lungs: - -mildly decreased breath sounds bibasally, with mild expiratory wheezes and crackles. on 1L of oxygen Cardiovascular: Regular rate, Regular Rhythm, Normal S1, Normal S2, No murmurs Abdomen: Bowel Sounds Present, Soft, Non Tender Extremities: No clubbing, No cyanosis, No edema, Capillary Refill Less than 3 Seconds Skin: No rashes, No breakdown Musculoskeletal: No Tenderness to Palpation of Joints or Extremities Lymphatic: No Cervical, Supraclavicular, or Inguinal Adenopathy Neurological: Cranial nerves II-XII grossly intact, Neuro grossly intact, Motor Exam 5/5 strength throughout Psych/Mental Status: Normal Affect, Appropriate, Alert and oriented to time, place, person, mood and affect Plan is to continue IV ceftriaxone and azithromycin. Continue breathing treatments, and IV solumedrol as well as incentive spirometry. titrate oxygen to maintain saturation >90%. Rest of management as per Jeanne Hong PSYCH COORDINATOR-C's note, which I have reviewed and endorsed. Code Visit Inpatient E&M: 09240 Subs Hosp L2
--- NOTE | 2019-01-07 12:06 | PN_ITS ---
<Jeanne Hong - Last Filed: 01/07/19 12:06> Subjective: Patient seen and examined. Continues to complain of shortness of breath and cough. Denies fever, chills. States cough is becoming more productive. - Physical Exam General: Alert, Oriented x3, Cooperative HEENT: Atraumatic, PERRLA, EOMI, Normocephalic Neck: Supple, No JVD, Negative Carotid Bruits Lungs: Diminished, - - Minimal crackles bilateral bases Cardiovascular: Regular rate, Regular Rhythm, Normal S1, Normal S2, No murmurs Abdomen: Bowel Sounds Present, Soft, Non Tender, Non-Distended Extremities: No clubbing, No cyanosis, No edema, Capillary Refill Less than 3 Seconds Skin: No rashes, No breakdown Musculoskeletal: No Tenderness to Palpation of Joints or Extremities Neurological: Cranial nerves II-XII grossly intact, Neuro grossly intact Psych/Mental Status: Normal Affect, Appropriate Vital Signs Temp Pulse Resp BP Pulse Ox 98.5 F 74 20 H 89/59 L 93 01/07/19 09:27 01/07/19 11:07 01/07/19 11:07 01/07/19 09:27 01/07/19 10:00 Oxygen Flow Rate (L/min) 1 Oxygen Delivery Method Nasal Cannula Weight: 189 lb 9.561 oz Body Mass Index (BMI) 25.7 Intake and Output for Last 24 Hours 01/05/19 01/06/19 01/07/19 23:59 23:59 23:59 Intake Total 1318 / 1318 1915 / 1915 Output Total 200 / 200 1000 / 1000 Balance 1118 / 1118 915 / 915 Microbiology Past 72 Hours 01/06/19 17:23 Streptococcus pneumoniae Antigen (M - Final Urine, Clean Catch 01/06/19 17:23 Legionella Antigen - Final Urine, Clean Catch Laboratory Tests Past 24 Hrs 01/07/19 01/07/19 05:45 05:45 WBC 11.9 H RBC 4.50 L Hgb 13.4 Hct 39.6 L MCV 88.0 MCH 29.8 MCHC 33.8 RDW 12.9 RDW Differential 40.9 Plt Count 240 MPV 9.3 Immature Gran % (Auto) 0.400 Neut % (Auto) 88.8 H Lymph % (Auto) 6.2 L [place] % (Auto) 4.5 Eos % (Auto) 0.0 Baso % (Auto) 0.1 Absolute Neuts (auto) 10.6 H Absolute Lymphs (auto) 0.74 L Total Counted Not Reportable Sodium 139 Potassium 4.9 Chloride 107 Carbon Dioxide 27.0 Anion Gap 5 BUN 16 Creatinine 0.92 Estim Creat Clear Calc 101.92 Est GFR (MDRD) Af Amer 110 Est GFR (MDRD) Non-Af 91 BUN/Creatinine Ratio 17.4 Glucose 145 H Calcium 8.7 POC Glucose 01/07/19 01/07/19 01/06/19 11:33 06:18 22:20 POC Glucose 221 H 197 H 170 H 01/06/19 16:50 POC Glucose 261 H Medical Necessity - Tobacco Use Smoking Status: Heavy Smoker (>10/day) Assessment/Plan All Active Problems Pain, dental (Acute) 1. Acute hypoxic respiratory insufficiency secondary to acute community- acquired pneumonia and COPD exacerbation-continue supplement oxygen to maintain O2 at or above 90%. Wean oxygen as tolerated. Walking pulse ox prior to discharge. 2. Acute community acquired pneumonia-CT of chest on admission shows acute infectious process, tree-in-bud nodular pattern possibly due to atypical organisms. Confluent opacities in both lower lobe. Dense subsegmental conso lidation of a portion of the right middle lobe consistent with consolidating pneumonia. Severe COPD. Urine negative for strep and Legionella. Sputum culture pending. Continue IV azithromycin and IV Rocephin. Albuterol and DuoNeb aerosols. IS. 3. COPD exacerbation-CT with evidence of severe COPD as noted above. No formal PFTs. Recommend outpatient follow-up with pulmonary medicine after resolve of acute pneumonia for pulmonary function testing and further evaluation and management of COPD. IV Solu-Medrol. Albuterol and DuoNeb aerosols. 4. Mild hyponatremia, secondary to dehydration-resolved. 5. Tobacco dependence-encourage smoking cessation. DVT prophylaxis-Lovenox subcu This patient was seen by KIM Moore under the supervision of Dr. Bundy. <Sunshine Bundy - Last Filed: 01/07/19 14:34> - Physical Exam Vital Signs Temp Pulse Resp BP Pulse Ox 98.5 F 74 20 H 89/59 L 93 01/07/19 09:27 01/07/19 11:07 01/07/19 11:07 01/07/19 09:27 01/07/19 10:00 Oxygen Flow Rate (L/min) 1 Oxygen Delivery Method Nasal Cannula Weight: 189 lb 9.561 oz Body Mass Index (BMI) 25.7 Intake and Output for Last 24 Hours 01/05/19 01/06/19 01/07/19 23:59 23:59 23:59 Intake Total 1318 / 1318 3182 / 3182 Output Total 200 / 200 1500 / 1500 Balance 1118 / 1118 1682 / 1682 Microbiology Past 72 Hours 01/06/19 14:47 Respiratory Panel (PCR) - Final Mucosa - Nasopharyngeal Rhinovirus 01/07/19 10:35 Gram Stain - Final Sputum, Expectorated/Coughed 01/06/19 17:23 Streptococcus pneumoniae Antigen (M - Final Urine, Clean Catch 01/06/19 17:23 Legionella Antigen - Final Urine, Clean Catch Laboratory Tests Past 24 Hrs 01/07/19 01/07/19 05:45 05:45 WBC 11.9 H RBC 4.50 L Hgb 13.4 Hct 39.6 L MCV 88.0 MCH 29.8 MCHC 33.8 RDW 12.9 RDW Differential 40.9 Plt Count 240 MPV 9.3 Immature Gran % (Auto) 0.400 Neut % (Auto) 88.8 H Lymph % (Auto) 6.2 L [place] % (Auto) 4.5 Eos % (Auto) 0.0 Baso % (Auto) 0.1 Absolute Neuts (auto) 10.6 H Absolute Lymphs (auto) 0.74 L Total Counted Not Reportable Sodium 139 Potassium 4.9 Chloride 107 Carbon Dioxide 27.0 Anion Gap 5 BUN 16 Creatinine 0.92 Estim Creat Clear Calc 101.92 Est GFR (MDRD) Af Amer 110 Est GFR (MDRD) Non-Af 91 BUN/Creatinine Ratio 17.4 Glucose 145 H Calcium 8.7 POC Glucose 01/07/19 01/07/19 01/06/19 11:33 06:18 22:20 POC Glucose 221 H 197 H 170 H 01/06/19 16:50 POC Glucose 261 H Assessment/Plan Patient seen by Jeanne Hong NP-C under my supervision Patient still complains of shortness of breath, but it is getting better. He is still coughing. He has no fever or chills. review of systems is otherwise negati ve. He tested positive for rhinovirus. o/e: Vital Signs Height 6 ft Weight: 189 lb 9.561 oz Weight in Pounds 189.6 lbs Pulse Ox 93 Temperature 98.5 F Pulse Rate 74 Respiratory Rate 20 Blood Pressure [BP] 89/59 Blood Pressure 89/59 Blood Pressure Position [BP] Left Lateral Blood Pressure Position Semi-Fowlers General: Alert, Oriented x3, Cooperative, No apparent distress HEENT: Atraumatic, PERRLA, EOMI, Normocephalic Oral: Dry Mucosa Neck: Supple, No JVD, Negative Carotid Bruits Lungs: - -mildly decreased breath sounds bibasally, with mild expiratory wheezes and crackles. on 1L of oxygen Cardiovascular: Regular rate, Regular Rhythm, Normal S1, Normal S2, No murmurs Abdomen: Bowel Sounds Present, Soft, Non Tender Extremities: No clubbing, No cyanosis, No edema, Capillary Refill Less than 3 Seconds Skin: No rashes, No breakdown Musculoskeletal: No Tenderness to Palpation of Joints or Extremities Lymphatic: No Cervical, Supraclavicular, or Inguinal Adenopathy Neurological: Cranial nerves II-XII grossly intact, Neuro grossly intact, Motor Exam 5/5 strength throughout Psych/Mental Status: Normal Affect, Appropriate, Alert and oriented to time, place, person, mood and affect Plan is to continue IV ceftriaxone and azithromycin. Continue breathing treatments, and IV solumedrol as well as incentive spirometry. titrate oxygen to maintain saturation >90%. Rest of management as per Jeanne Hong COMPUTERIZED MACHINE FABRIC CUTTER-C's note, which I have reviewed and endorsed. Code Visit Inpatient E&M: 76581 Subs Hosp L2
[2019-01-07] MEDS: Ketorolac 30 MG/ML Syringe IV ×2 (12:31→18:52)
[2019-01-07] MEDS: 0.9% NaCl Peripheral Flush Adult/Peds IV ×3 (12:31→21:39)
[2019-01-07 17:25] LABS: Bedside Glucose 171 mg/dL (70-110)
[2019-01-07 22:26] LABS: Bedside Glucose 170 mg/dL (70-110)
[2019-01-08 02:58] VITALS: PULSE 49
[2019-01-08 03:45] VITALS: BP 103/63; PULSE 83; RESP 18; TEMP 36.6; O2SAT 97
[2019-01-08] MEDS: 0.9% NaCl Peripheral Flush Adult/Peds IV ×2 (05:06→09:16)
[2019-01-08 06:41] LABS: Bedside Glucose 126 mg/dL (70-110)
[2019-01-08 06:52] VITALS: PULSE 48; RESP 16; O2SAT 99
[2019-01-08] MEDS: Ipratropium/Albuterol Sulfate 3 ML AMPUL.NEB INHALATION ×2 (06:52→10:43)
[2019-01-08 07:21] VITALS: PULSE 51
[2019-01-08 08:50] VITALS: BP 115/66; PULSE 53; RESP 20; TEMP 36.7; O2SAT 93; O2SAT 98
[2019-01-08] MEDS: guaiFENesin 1,200 MG Tablet 1200 MG PO (09:12)
[2019-01-08] MEDS: Ceftriaxone 1 GM/50 ML BAG IV (09:12)
[2019-01-08] MEDS: Acetaminophen 325 MG Tablet 650 MG PO (09:12)
--- NOTE | 2019-01-08 09:51 | PCM.DC ---
You will use the following diet at home:: No restrictions Discharge Activity: Return to Normal Activity Call your doctor if you observe: Fever of 101 or Higher, Shortness of breath, Dizziness, Fainting spells, Chest pain Allergies/Adverse Reactions: Allergies clindamycin Allergy (Verified 01/06/19 10:19) Hives iodine Allergy (Verified 01/06/19 10:19) Swelling Penicillins [PCN] Adverse Reaction (Verified 01/06/19 10:19) Upset Stomach Medications to take at Discharge Albuterol Inhaler [Ventolin Hfa] 1 - 2 puff INHALATION Q4H PRN PRN #1 inhaler 01/08/19 Prednisone See Taper PO DAILY #30 tablet 01/08/19 levoFLOXacin tablet [Levaquin tablet] 750 mg PO DAILY #5 tablet 01/08/19 The following prescriptions were given: Albuterol Inhaler [Ventolin Hfa] 1 - 2 puff INHALATION Q4H PRN PRN #1 inhaler PRN Reason: Shortness Of Breath levoFLOXacin tablet [Levaquin tablet] 750 mg PO DAILY #5 tablet Prednisone See Taper PO DAILY #30 tablet Primary Care Physician: Yasir Parada MD [Primary Care Provider] - Please follow up with your Primary Care Physician in: 1 Week Test Results: Test results from this visit will be discussed in further detail at your follow-up appointment, if applicable. Please Follow Up With: Topher Bland MD - Or Dr. Bliss When: Pulmonary Medicine, Call for appt, follow up in 2-4 weeks [phone] Proposed Discharge Date: 01/08/19
--- NOTE | 2019-01-08 09:54 | DCINST_ITS ---
You will use the following diet at home:: No restrictions Discharge Activity: Return to Normal Activity Call your doctor if you observe: Fever of 101 or Higher, Shortness of breath, Dizziness, Fainting spells, Chest pain Allergies/Adverse Reactions: Allergies clindamycin Allergy (Verified 01/06/19 10:19) Hives iodine Allergy (Verified 01/06/19 10:19) Swelling Penicillins [PCN] Adverse Reaction (Verified 01/06/19 10:19) Upset Stomach Medications to take at Discharge Albuterol Inhaler [Ventolin Hfa] 1 - 2 puff INHALATION Q4H PRN PRN #1 inhaler 01/08/19 Prednisone See Taper PO DAILY #30 tablet 01/08/19 levoFLOXacin tablet [Levaquin tablet] 750 mg PO DAILY #5 tablet 01/08/19 The following prescriptions were given: Albuterol Inhaler [Ventolin Hfa] 1 - 2 puff INHALATION Q4H PRN PRN #1 inhaler PRN Reason: Shortness Of Breath levoFLOXacin tablet [Levaquin tablet] 750 mg PO DAILY #5 tablet Prednisone See Taper PO DAILY #30 tablet Primary Care Physician: Yasir Parada MD [Primary Care Provider] - Please follow up with your Primary Care Physician in: 1 Week Test Results: Test results from this visit will be discussed in further detail at your follow- up appointment, if applicable. Please Follow Up With: Topher Bland MD - Or Dr. Bliss When: Pulmonary Medicine, Call for appt, follow up in 2-4 weeks [phone] Proposed Discharge Date: 01/08/19
--- NOTE | 2019-01-08 09:54 | PCM.DC.SUM ---
<Jeanne Hong - Last Filed: 01/08/19 10:09> Discharge Date and Diagnosis Date of Admission: 01/06/19 Date of Discharge: 01/08/19 - Primary Discharge Diagnosis 1. Acute hypoxic respiratory insufficiency secondary to acute community-acquired pneumonia and COPD exacerbation secondary to acute rhinovirus 2. Acute community acquired pneumonia 3. COPD exacerbation secondary to acute rhinovirus 4. Mild hyponatremia, secondary to dehydration 5. Tobacco dependence - Secondary Discharge Diagnosis Chronic Problems History of alcohol use (Chronic) Hospital Course and Treatment Imaging Results: Diagnostic Data Chest X-Ray 01/06/19 10:24 IMPRESSION: Bibasilar patchy infiltrates worse on the left side. Electronically Signed: Forrest Chapman, at 11:24 EDT , Service support , Chest CTA 01/06/19 11:04 IMPRESSION: As noted above pulmonary features are most consistent with an acute infectious process. With the tree-in-bud nodular pattern consider the possibility of atypical organisms. Confluent opacities in both lower lobe may reflect more severe infectious process, but could also reflect the presence of alveolar hemorrhage in the setting of hemoptysis. Dense subsegmental consolidation of a portion of the right middle lobe is consistent with consolidating pneumonia. Severe COPD/emphysema. Mild hilar lymphadenopathy bilaterally. Electronically Signed: Onofre Rousseau MD at 12:48 EDT Tel , Service support , Operations: None Procedures: None Summary of Care Provided: The patient is a 53 year old M admitted 01/06/2019 due to shortness of breath, cough. 1. Acute hypoxic respiratory insufficiency secondary to acute community-acquired pneumonia and COPD exacerbation secondary to acute rhinovirus-patient weaned off of supplemental oxygen. Walking pulse ox completed prior to discharge and patient did not require further supplemental oxygen. Follow-up with primary care provider in 1 week. 2. Acute community acquired pneumonia-CT of chest on admission shows acute infectious process, tree-in-bud nodular pattern possibly due to atypical organisms. Confluent opacities in both lower lobe. Dense subsegmental consolidation of a portion of the right middle lobe consistent with consolidating pneumonia. Severe COPD. Urine negative for strep and Legionella. Sputum culture with very rare gram-positive cocci, 3+ white blood cells.. Patient received IV azithromycin and IV Rocephin during admission. Discharged on oral Levaquin 750 mg x 5 days. Albuterol inhaler as needed. 3. COPD exacerbation secondary to acute rhinovirus-CT with evidence of severe COPD as noted above. No formal PFTs. Recommend outpatient follow-up with pulmonary medicine after resolve of acute pneumonia for pulmonary function testing and further evaluation and management of COPD. Prednisone taper at discharge. Albuterol inhaler as needed. Recommend follow-up with pulmonary medicine in 2 to 4 weeks to establish for further management of COPD. 4. Mild hyponatremia, secondary to dehydration-resolved. 5. Tobacco dependence-current 1.5 to 2 pack/day smoker. Encourage smoking cessation. Reports he has nicotine patches at home and declined nicotine replacement patches at discharge. General: Alert, Oriented x3, Cooperative HEENT: Atraumatic, PERRLA, EOMI, Normocephalic Neck: Supple, No JVD, Negative Carotid Bruits Lungs: Diminished, clear to auscultation Cardiovascular: Regular rate, Regular Rhythm, Normal S1, Normal S2, No murmurs Abdomen: Bowel Sounds Present, Soft, Non Tender, Non-Distended Extremities: No clubbing, No cyanosis, No edema, Capillary Refill Less than 3 Seconds Skin: No rashes, No breakdown Musculoskeletal: No Tenderness to Palpation of Joints or Extremities Neurological: Cranial nerves II-XII grossly intact, Neuro grossly intact Psych/Mental Status: Normal Affect, Appropriate Patient seen and examined prior to discharge. Physical assessment as noted above. Patient is stable for discharge with follow up recommendations as noted above. This patient was seen by KIM Moore under the supervision of Dr. Bundy. - Physical Exam Vital Signs Temp Pulse Resp BP Pulse Ox 98.0 F 53 L 20 H 115/66 98 01/08/19 08:50 01/08/19 08:50 01/08/19 08:50 01/08/19 08:50 01/08/19 08:50 Oxygen Flow Rate (L/min) 1 Oxygen Delivery Method Room Air Weight: 189 lb 9.561 oz Body Mass Index (BMI) 25.7 Intake and Output for Last 24 Hours 01/06/19 01/07/19 01/08/19 23:59 23:59 23:59 Intake Total 1318 / 1318 3542 / 3542 552 / 552 Output Total 200 / 200 2024 / 2024 1000 / 1000 Balance 1118 / 1118 1517 / 1517 -448 / -448 Microbiology Past 72 Hours 01/06/19 14:47 Respiratory Panel (PCR) - Final Mucosa - Nasopharyngeal Rhinovirus 01/07/19 10:35 Gram Stain - Final Sputum, Expectorated/Coughed 01/06/19 17:23 Streptococcus pneumoniae Antigen (M - Final Urine, Clean Catch 01/06/19 17:23 Legionella Antigen - Final Urine, Clean Catch POC Glucose 01/08/19 01/07/19 01/07/19 06:34 21:44 17:15 POC Glucose 126 H 170 H 171 H 01/07/19 11:33 POC Glucose 221 H Discharge Diet: No Restrictions Discharge Activity: Return to Normal Activity Call your doctor if you observe: Fever of 101 or Higher, Shortness of breath, Dizziness, Fainting spells, Chest pain Home Medications: Medications to take at Discharge Albuterol Inhaler [Ventolin Hfa] 1 - 2 puff INHALATION Q4H PRN PRN #1 inhaler 01/08/19 Prednisone See Taper PO DAILY #30 tablet 01/08/19 levoFLOXacin tablet [Levaquin tablet] 750 mg PO DAILY #5 tablet 01/08/19 Following Prescrptions Were Given to Patient: Albuterol Inhaler [Ventolin Hfa] 1 - 2 puff INHALATION Q4H PRN PRN #1 inhaler PRN Reason: Shortness Of Breath levoFLOXacin tablet [Levaquin tablet] 750 mg PO DAILY #5 tablet Prednisone See Taper PO DAILY #30 tablet Primary Care Physician: Yasir Parada MD [Primary Care Provider] - Please follow up with your Primary Care Physician in: 1 Week Please Follow Up With: Topher Bland MD - Or Dr. Bliss When: Pulmonary Medicine, Call for appt, follow up in 2-4 weeks [phone] Disposition: Home Minutes spent on discharge:: 35 Patient Condition:: Stable Medical Necessity - Tobacco Use Smoking Status: Heavy Smoker (>10/day) Meaningful Use Info Meaningful Use Diagnoses (Choose all that apply): None applicable <Sunshine Bundy - Last Filed: 01/08/19 13:28> Discharge Date and Diagnosis - Secondary Discharge Diagnosis Chronic Problems History of alcohol use (Chronic) Hospital Course and Treatment Summary of Care Provided: Patient seen by Jeanne ALVAREZ under my supervision. The patient is a 53 year old M with an extensive past medical history as listed was admitted through the ED on 01/06/2019 with a complaint of shortness of breath and cough for 2 days prior to admission. Cough was productive of whitish sputum and he had assisted anorexia and generalized malaise. He was found to be tachypneic in the ED breathing at 27/min and required 2 L to maintain saturation above 90%. CBC was unremarkable and chest x-ray showed bilateral basilar patchy infiltrates worse on the left side. CT chest showed tree-in-bud nodular pattern and confluent opacities in both lower lobes which may represent infectious process as well as subsegmental consolidation in right middle lobe as well as severe COPD and emphysema. He was admitted to be managed for COPD exacerbation and community-acquired pneumonia. He was started on IV ceftriaxone and azithromycin which he tolerated well. Urine was negative for strep and Legionella and tested positive for rhinovirus. Sputum cultured very rare gram-positive cocci with 3+ white blood cells. Patient remained stable and was transition of home oxygen. He had walking pulse ox prior to discharge and did not require home oxygen. He was discharged with a prescription for p.o. Levaquin 750 mg daily x5 days and was counseled to follow-up with pulmonology as well. Patient seen and examined prior to discharge. He had no complaints and felt well. He was also oxygen. Review of systems otherwise negative. Labs and vitals reviewed. Home medication reviewed and reconciled. o/e: Vital Signs Height 6 ft Weight: 189 lb 9.561 oz Weight in Pounds 189.6 lbs Pulse Ox [AMBULATING on Room 93 Air] Pulse Ox [At REST on Room Air] 98 Pulse Ox 98 Temperature 98.0 F Pulse Rate 51 Respiratory Rate 16 Blood Pressure [BP] 109/65 Blood Pressure 115/66 Blood Pressure Position [BP] Sitting Blood Pressure Position Sitting General: Alert, Oriented x3, Cooperative, No apparent distress HEENT: Atraumatic, PERRLA, EOMI, Normocephalic Oral: Dry Mucosa Neck: Supple, No JVD, Negative Carotid Bruits Lungs: - -mildly decreased breath sounds bibasally. No wheezes or crackles. on room air Cardiovascular: Regular rate, Regular Rhythm, Normal S1, Normal S2, No murmurs Abdomen: Bowel Sounds Present, Soft, Non Tender Extremities: No clubbing, No cyanosis, No edema, Capillary Refill Less than 3 Seconds Skin: No rashes, No breakdown Musculoskeletal: No Tenderness to Palpation of Joints or Extremities Lymphatic: No Cervical, Supraclavicular, or Inguinal Adenopathy Neurological: Cranial nerves II-XII grossly intact, Neuro grossly intact, Motor Exam 5/5 strength throughout Psych/Mental Status: Normal Affect, Appropriate, Alert and oriented to time, place, person, mood and affect Plan as above. 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 - Physical Exam Vital Signs Temp Pulse Resp BP Pulse Ox 98.0 F 51 L 16 115/66 98 01/08/19 08:50 01/08/19 10:43 01/08/19 10:43 01/08/19 08:50 01/08/19 08:50 Oxygen Flow Rate (L/min) 1 Oxygen Delivery Method Room Air Weight: 189 lb 9.561 oz Body Mass Index (BMI) 25.7 Intake and Output for Last 24 Hours 01/06/19 01/07/19 01/08/19 23:59 23:59 23:59 Intake Total 1318 / 1318 3542 / 3542 552 / 552 Output Total 200 / 200 2024 / 2024 1000 / 1000 Balance 1118 / 1118 1517 / 1517 -448 / -448 Microbiology Past 72 Hours 01/06/19 10:40 Blood Culture - Preliminary Blood Culture (Wb) #2 - Anticubital Right No growth in 48 hours. 01/06/19 10:35 Blood Culture - Preliminary Blood Culture (Wb) - Anticubital Left No growth in 48 hours. 01/06/19 14:47 Respiratory Panel (PCR) - Final Mucosa - Nasopharyngeal Rhinovirus 01/07/19 10:35 Gram Stain - Final Sputum, Expectorated/Coughed 01/06/19 17:23 Streptococcus pneumoniae Antigen (M - Final Urine, Clean Catch 01/06/19 17:23 Legionella Antigen - Final Urine, Clean Catch POC Glucose 01/08/19 01/07/19 01/07/19 06:34 21:44 17:15 POC Glucose 126 H 170 H 171 H Code Visit Inpatient E&M: 84043 Disch Hosp
--- NOTE | 2019-01-08 09:58 | DS.PCM_ITS ---
<Jeanne Hong - Last Filed: 01/08/19 10:09> Discharge Date and Diagnosis Date of Admission: 01/06/19 Date of Discharge: 01/08/19 - Primary Discharge Diagnosis 1. Acute hypoxic respiratory insufficiency secondary to acute community- acquired pneumonia and COPD exacerbation secondary to acute rhinovirus 2. Acute community acquired pneumonia 3. COPD exacerbation secondary to acute rhinovirus 4. Mild hyponatremia, secondary to dehydration 5. Tobacco dependence - Secondary Discharge Diagnosis Chronic Problems History of alcohol use (Chronic) Hospital Course and Treatment Imaging Results: Diagnostic Data Chest X-Ray 01/06/19 10:24 IMPRESSION: Bibasilar patchy infiltrates worse on the left side. Electronically Signed: Forrest Chapman, at 11:24 EDT , Service support , Chest CTA 01/06/19 11:04 IMPRESSION: As noted above pulmonary features are most consistent with an acute infectious process. With the tree-in-bud nodular pattern consider the possibility of atypical organisms. Confluent opacities in both lower lobe may reflect more severe infectious process, but could also reflect the presence of alveolar hemorrhage in the setting of hemoptysis. Dense subsegmental consolidation of a portion of the right middle lobe is consistent with consolidating pneumonia. Severe COPD/emphysema. Mild hilar lymphadenopathy bilaterally. Electronically Signed: Onofre Rousseau MD at 12:48 EDT Tel , Service support , Operations: None Procedures: None Summary of Care Provided: The patient is a 53 year old M admitted 01/06/2019 due to shortness of breath, cough. 1. Acute hypoxic respiratory insufficiency secondary to acute community- acquired pneumonia and COPD exacerbation secondary to acute rhinovirus-patient weaned off of supplemental oxygen. Walking pulse ox completed prior to discharge and patient did not require further supplemental oxygen. Follow-up with primary care provider in 1 week. 2. Acute community acquired pneumonia-CT of chest on admission shows acute infectious process, tree-in-bud nodular pattern possibly due to atypical organisms. Confluent opacities in both lower lobe. Dense subsegmental consolidation of a portion of the right middle lobe consistent with consolidating pneumonia. Severe COPD. Urine negative for strep and Legionella. Sputum culture with very rare gram-positive cocci, 3+ white blood cells.. Patient received IV azithromycin and IV Rocephin during admission. Discharged on oral Levaquin 750 mg x 5 days. Albuterol inhaler as needed. 3. COPD exacerbation secondary to acute rhinovirus-CT with evidence of severe COPD as noted above. No formal PFTs. Recommend outpatient follow-up with pulmonary medicine after resolve of acute pneumonia for pulmonary function testing and further evaluation and management of COPD. Prednisone taper at discharge. Albuterol inhaler as needed. Recommend follow-up with pulmonary medicine in 2 to 4 weeks to establish for further management of COPD. 4. Mild hyponatremia, secondary to dehydration-resolved. 5. Tobacco dependence-current 1.5 to 2 pack/day smoker. Encourage smoking cessation. Reports he has nicotine patches at home and declined nicotine replacement patches at discharge. General: Alert, Oriented x3, Cooperative HEENT: Atraumatic, PERRLA, EOMI, Normocephalic Neck: Supple, No JVD, Negative Carotid Bruits Lungs: Diminished, clear to auscultation Cardiovascular: Regular rate, Regular Rhythm, Normal S1, Normal S2, No murmurs Abdomen: Bowel Sounds Present, Soft, Non Tender, Non-Distended Extremities: No clubbing, No cyanosis, No edema, Capillary Refill Less than 3 Seconds Skin: No rashes, No breakdown Musculoskeletal: No Tenderness to Palpation of Joints or Extremities Neurological: Cranial nerves II-XII grossly intact, Neuro grossly intact Psych/Mental Status: Normal Affect, Appropriate Patient seen and examined prior to discharge. Physical assessment as noted above. Patient is stable for discharge with follow up recommendations as noted above. This patient was seen by KIM Moore under the supervision of Dr. Bundy. - Physical Exam Vital Signs Temp Pulse Resp BP Pulse Ox 98.0 F 53 L 20 H 115/66 98 01/08/19 08:50 01/08/19 08:50 01/08/19 08:50 01/08/19 08:50 01/08/19 08:50 Oxygen Flow Rate (L/min) 1 Oxygen Delivery Method Room Air Weight: 189 lb 9.561 oz Body Mass Index (BMI) 25.7 Intake and Output for Last 24 Hours 01/06/19 01/07/19 01/08/19 23:59 23:59 23:59 Intake Total 1318 / 1318 3542 / 3542 552 / 552 Output Total 200 / 200 2024 / 2024 1000 / 1000 Balance 1118 / 1118 1517 / 1517 -448 / -448 Microbiology Past 72 Hours 01/06/19 14:47 Respiratory Panel (PCR) - Final Mucosa - Nasopharyngeal Rhinovirus 01/07/19 10:35 Gram Stain - Final Sputum, Expectorated/Coughed 01/06/19 17:23 Streptococcus pneumoniae Antigen (M - Final Urine, Clean Catch 01/06/19 17:23 Legionella Antigen - Final Urine, Clean Catch POC Glucose 01/08/19 01/07/19 01/07/19 06:34 21:44 17:15 POC Glucose 126 H 170 H 171 H 01/07/19 11:33 POC Glucose 221 H Discharge Diet: No Restrictions Discharge Activity: Return to Normal Activity Call your doctor if you observe: Fever of 101 or Higher, Shortness of breath, Di zziness, Fainting spells, Chest pain Home Medications: Medications to take at Discharge Albuterol Inhaler [Ventolin Hfa] 1 - 2 puff INHALATION Q4H PRN PRN #1 inhaler 01/08/19 Prednisone See Taper PO DAILY #30 tablet 01/08/19 levoFLOXacin tablet [Levaquin tablet] 750 mg PO DAILY #5 tablet 01/08/19 Following Prescrptions Were Given to Patient: Albuterol Inhaler [Ventolin Hfa] 1 - 2 puff INHALATION Q4H PRN PRN #1 inhaler PRN Reason: Shortness Of Breath levoFLOXacin tablet [Levaquin tablet] 750 mg PO DAILY #5 tablet Prednisone See Taper PO DAILY #30 tablet Primary Care Physician: Yasir Parada MD [Primary Care Provider] - Please follow up with your Primary Care Physician in: 1 Week Please Follow Up With: Topher Bland MD - Or Dr. Bliss When: Pulmonary Medicine, Call for appt, follow up in 2-4 weeks [phone] Disposition: Home Minutes spent on discharge:: 35 Patient Condition:: Stable Medical Necessity - Tobacco Use Smoking Status: Heavy Smoker (>10/day) Meaningful Use Info Meaningful Use Diagnoses (Choose all that apply): None applicable <Sunshine Bundy - Last Filed: 01/08/19 13:28> Discharge Date and Diagnosis - Secondary Discharge Diagnosis Chronic Problems History of alcohol use (Chronic) Hospital Course and Treatment Summary of Care Provided: Patient seen by Jeanne ALVAREZ under my supervision. The patient is a 53 year old M with an extensive past medical history as listed was admitted through the ED on 01/06/2019 with a complaint of shortness of breath and cough for 2 days prior to admission. Cough was productive of whitish sputum and he had assisted anorexia and generalized malaise. He was found to be tachypneic in the ED breathing at 27/min and required 2 L to maintain saturation above 90%. CBC was unremarkable and chest x-ray showed bilateral basilar patchy infiltrates worse on the left side. CT chest showed tree-in-bud nodular pattern and confluent opacities in both lower lobes which may represent infectious process as well as subsegmental consolidation in right middle lobe as well as severe COPD and emphysema. He was admitted to be managed for COPD exacerbation and community-acquired pneumonia. He was started on IV ceftriaxone and azithromycin which he tolerated well. Urine was negative for strep and Legionella and tested positive for rhinovirus. Sputum cultured very rare gram- positive cocci with 3+ white blood cells. Patient remained stable and was transition of home oxygen. He had walking pulse ox prior to discharge and did not require home oxygen. He was discharged with a prescription for p.o. Levaquin 750 mg daily x5 days and was counseled to follow-up with pulmonology as well. Patient seen and examined prior to discharge. He had no complaints and felt well. He was also oxygen. Review of systems otherwise negative. Labs and vitals reviewed. Home medication reviewed and reconciled. o/e: Vital Signs Height 6 ft Weight: 189 lb 9.561 oz Weight in Pounds 189.6 lbs Pulse Ox [AMBULATING on Room 93 Air] Pulse Ox [At REST on Room Air] 98 Pulse Ox 98 Temperature 98.0 F Pulse Rate 51 Respiratory Rate 16 Blood Pressure [BP] 109/65 Blood Pressure 115/66 Blood Pressure Position [BP] Sitting Blood Pressure Position Sitting General: Alert, Oriented x3, Cooperative, No apparent distress HEENT: Atraumatic, PERRLA, EOMI, Normocephalic Oral: Dry Mucosa Neck: Supple, No JVD, Negative Carotid Bruits Lungs: - -mildly decreased breath sounds bibasally. No wheezes or crackles. on room air Cardiovascular: Regular rate, Regular Rhythm, Normal S1, Normal S2, No murmurs Abdomen: Bowel Sounds Present, Soft, Non Tender Extremities: No clubbing, No cyanosis, No edema, Capillary Refill Less than 3 Seconds Skin: No rashes, No breakdown Musculoskeletal: No Tenderness to Palpation of Joints or Extremities Lymphatic: No Cervical, Supraclavicular, or Inguinal Adenopathy Neurological: Cranial nerves II-XII grossly intact, Neuro grossly intact, Motor Exam 5/5 strength throughout Psych/Mental Status: Normal Affect, Appropriate, Alert and oriented to time, place, person, mood and affect Plan as above. 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 - Physical Exam Vital Signs Temp Pulse Resp BP Pulse Ox 98.0 F 51 L 16 115/66 98 01/08/19 08:50 01/08/19 10:43 01/08/19 10:43 01/08/19 08:50 01/08/19 08:50 Oxygen Flow Rate (L/min) 1 Oxygen Delivery Method Room Air Weight: 189 lb 9.561 oz Body Mass Index (BMI) 25.7 Intake and Output for Last 24 Hours 01/06/19 01/07/19 01/08/19 23:59 23:59 23:59 Intake Total 1318 / 1318 3542 / 3542 552 / 552 Output Total 200 / 200 2024 / 2024 1000 / 1000 Balance 1118 / 1118 1517 / 1517 -448 / -448 Microbiology Past 72 Hours 01/06/19 10:40 Blood Culture - Preliminary Blood Culture (Wb) #2 - Anticubital Right No growth in 48 hours. 01/06/19 10:35 Blood Culture - Preliminary Blood Culture (Wb) - Anticubital Left No growth in 48 hours. 01/06/19 14:47 Respiratory Panel (PCR) - Final Mucosa - Nasopharyngeal Rhinovirus 01/07/19 10:35 Gram Stain - Final Sputum, Expectorated/Coughed 01/06/19 17:23 Streptococcus pneumoniae Antigen (M - Final Urine, Clean Catch 01/06/19 17:23 Legionella Antigen - Final Urine, Clean Catch POC Glucose 01/08/19 01/07/19 01/07/19 06:34 21:44 17:15 POC Glucose 126 H 170 H 171 H Code Visit Inpatient E&M: [id number] Disch Hosp
[2019-01-08 10:43] VITALS: PULSE 51; RESP 16
--- NOTE | 2019-01-08 11:19 | NURSING ---
called about hospital transportation. they state they will be able to take patient at 1200 and will be down at the front entrance
--- NOTE | 2019-01-13 13:22 | CASEMGMT ---
[facility] CM DC PHONE CALL DC DATE: 01/08/19 DC Disposition: Home LACE/STRATA: 11 Attempted calls x2- continued busy signal. Annie PAEZN RN ACM
== END 2019-01-08 11:55 | disposition home or self-care (01) | DRG 140 ==
LOC: ED 10:37 → PCU 13:23
PROVIDERS: Admitting Provider Student in an Organized Health Care Education/Training Program; Emergency Provider Emergency Medicine; Family Provider Family Medicine; PCP Family Medicine; Referring Provider Student in an Organized Health Care Education/Training Program; Visit Provider Student in an Organized Health Care Education/Training Program
DX: J44.0 Chronic obstructive pulmonary disease with (acute) lower respiratory infection (principal); J18.9 Pneumonia, unspecified organism; R06.89 Other abnormalities of breathing; R09.02 Hypoxemia; J44.1 Chronic obstructive pulmonary disease with (acute) exacerbation; B97.89 Other viral agents as the cause of diseases classified elsewhere; E87.1 Hypo-osmolality and hyponatremia; E86.0 Dehydration; F17.200 Nicotine dependence, unspecified, uncomplicated
CPT/HCPCS: 36415; 71046; 71275; 80048; 82962; 83605; 84484; 85025; 85379; 87040; 87070; 87205; 87449; 87633; 93005; 94640; 97802; 99285; J7030; J7050; Q9967; A4216; J2405

== ENCOUNTER → 2019-05-10 10:22 | Outpatient (CLI) | payer MEDICAID, SELFPAY ==
[2019-03-17 13:32] VITALS: BMI 26.7
[2019-04-29 10:19] VITALS: BMI 26.4
[2019-05-10 10:40] VITALS: PULSE 100; PULSE 102; PULSE 108; PULSE 75; PULSE 89; PULSE 92; PULSE 98; PULSE 99; O2SAT 97; O2SAT 98; O2SAT 99
--- NOTE | 2019-05-11 10:54 | PCM.PSN.6M ---
PSN 6 Minute Walk Test - 6 Minute Walk Test 6 Minute Walk Test: 6 Minute Walk Test PSN:6-Minute Walk Test Start: 05/10/19 10:50 Freq: Status: Active Protocol: [id number].6MINW Document 05/10/19 10:40 HG (Rec: 05/10/19 10:54 HG [id number]) 6 Minute Walk Test Date Performed 05/10/19 Time Performed 10:40 Height 6 ft Weight: 200 lb Weight in Pounds 200.[address]: Rufus Bliss Assistive device used: None Pre-test Oxygen Delivery Method Room Air Pulse Ox (%) 97 Pulse Rate (60-100 beats/min) 75 Dyspnea Johnathan Scale (0-10) 1 Exertion Johnathan Scale (6-20) 6 1st minute Oxygen Delivery Method Room Air Pulse Ox (%) 97 Pulse Rate (60-100 beats/min) 98 2nd minute Oxygen Delivery Method Room Air Pulse Ox (%) 98 Pulse Rate (60-100 beats/min) 102 H 3rd minute Oxygen Delivery Method Room Air Pulse Ox (%) 97 Pulse Rate (60-100 beats/min) 92 4th minute Oxygen Delivery Method Room Air Pulse Ox (%) 98 Pulse Rate (60-100 beats/min) 108 H 5th minute Oxygen Delivery Method Room Air Pulse Ox (%) 99 Pulse Rate (60-100 beats/min) 100 6th minute Oxygen Delivery Method Room Air Pulse Ox (%) 97 Pulse Rate (60-100 beats/min) 99 Post-test Oxygen Delivery Method Room Air Pulse Ox (%) 97 Pulse Rate (60-100 beats/min) 89 Dyspnea Johnathan Scale (0-10) 2 Exertion Johnathan Scale (6-20) 8 Full Laps Walked 18 Partial Lap, Number of Tiles Walked 0 Total Distance Walked (ft) 1062 - Interpretation Interpretation: The patient ambulated 1062 feet over the course of 6 minutes beginning on room air without assistive devices or breaks. Pretesting oxygen saturation was noted to be 97% on room air. With ambulation, the gianluca oxygen saturation was 97%. There was no significant exertional oxygen desaturation. - Recommendations Recommendations: There is no indication for the use of supplemental oxygen at this time.
== END ==
PROVIDERS: Family Provider Family Medicine; PCP Family Medicine; Referring Provider Internal Medicine Critical Care Medicine; Visit Provider Internal Medicine Critical Care Medicine
DX: J44.9 Chronic obstructive pulmonary disease, unspecified (principal)
CPT/HCPCS: 94618

== ENCOUNTER 2019-12-22 23:07 | Emergency (ER) | payer MEDICAID, SELFPAY ==
[2019-04-29 10:19] VITALS: BMI 26.4
[2019-12-22 23:07] VITALS: BP 124/80; PULSE 116; RESP 20; TEMP 36.3; O2SAT 100; BMI 26.5
[2019-12-22] MEDS: HYDROmorphone 1 MG/ML Syringe SC (23:20)
--- NOTE | 2019-12-22 23:25 | RAD_ITS ---
STUDY: X-RAY - RIGHT ELBOW REASON FOR EXAM: Male, 54 years old. right elbow pain after lifting a grill. TECHNIQUE: 4 view(s) of the elbow. COMPARISON: None. FINDINGS: Normal visualized humerus, radius and ulna. Normal radiocapitellar and ulnotrochlear articulations. The soft tissue structures are unremarkable. RAD/Elbow min 3 Views IMPRESSION: Normal x-ray examination of the elbow. Electronically Signed: Jah Rush MD at 23:52 EDT , Service support ,
--- NOTE | 2019-12-22 23:46 | ED.DCSUM_ITS ---
- ER Visit Summary Date of Service: 12/22/19 Chief Complaint: Right elbow pain History of Present Illness: The patient is a 54 M with right elbow pain after lifting a grill earlier today. Physical Examination: Patient has tenderness to palpation over his right AC fossa and pain with flexion at his elbow. Overlying skin appears unremarkable. He is neurovascular intact distally. Test Results: X-rays are unremarkable. Emergency Department Course and Treatment: Patient was treated with Dilaudid while awaiting x-ray results. Bones are unremarkable. I suspect he has a biceps tendon injury. He was referred to orthopedics. Placed in a sling. Pain meds. Outpatient follow-up. Treatment Plan: As above Disposition: Discharge Impression: Right elbow pain This note was generated with [employer] dictation software. It may contain incorrect words, spelling, and punctuation that were not noted in review of the chart prior to signing ED Disposition - Plan for ED Patient: Referrals: Yasir Lewis MD [Primary Care Provider] -
--- NOTE | 2019-12-22 23:47 | ED.DEP ---
ED Disposition - Plan for ED Patient: Instructions: ED ELBOW SPRAIN Prescriptions: Oxycodone HCl/Acetaminophen [Percocet 5/325] 1 tab PO Q6H PRN PRN 3 Days #12 tab PRN Reason: Pain Prescription Printed Referrals: Supa Faust MD [STAFF PHYSICIAN] -
== END 2019-12-23 00:29 | disposition home or self-care (01) ==
LOC: ED 23:37
PROVIDERS: Emergency Provider Emergency Medicine; PCP Family Medicine
DX: M25.521 Pain in right elbow (principal); F17.200 Nicotine dependence, unspecified, uncomplicated; J44.9 Chronic obstructive pulmonary disease, unspecified
CPT/HCPCS: 73080; 96372; 96374; 99283

== ENCOUNTER 2021-01-21 13:52 | Emergency (ER) | payer MEDICAID, SELFPAY ==
[2021-01-21 13:53] VITALS: BP 126/96; PULSE 116; RESP 16; TEMP 36.7; O2SAT 98; BMI 25.7; BMI 26.5
--- NOTE | 2021-01-21 14:07 | EX.ED.VIS.HA ---
HPI History of Present Illness Chief Complaint: Headache Informant: patient Onset/Context/Timing Onset: Weeks (3) Context: Gradual Timing: Continuous Quality -Headache: Positive for Other (Aching) Location: Bilateral top of head Current Severity: Moderate Maximum Severity: Moderate Worsened by: Trying to blow nose Relieved by: Nothing Associated Symptoms/Injury Associated Symptoms: Positive for Sinus Pressure (And congestion); Negative for Fever, Nausea, Vomiting, Sore Throat, Numbness, Tingling, Visual Changes, Blurred Vision, Photophobia and Visual Loss Injury - [place]: Negative for Direct Trauma and Fall Narrative Narrative: Patient has been having sinus congestion and pressure/pain diffusely bilaterally throughout his face that started 3 weeks ago, gradually started causing headaches as a got worse, he did not have a headache prior to that, he denies any fevers or chills he has no history of seasonal allergies, he has some retro-orbital discomfort but no vision changes, eye watering, sneezing, eye redness, or discharge from his eyes or his nose. He states he is blowing his nose but nothing is coming out. He also is having pain radiating into both ears that feels like pressure and decreased hearing in both ears. [facility] Medical History Asthma COPD (chronic obstructive pulmonary disease) DDD (degenerative disc disease) Depression Emphysema of lung History of bronchitis History of pneumonia Home Medications albuterol sulfate 1 - 2 puff INHALATION Q4H PRN PRN #1 inhaler 01/08/19 [Rx Last Taken Unknown] ipratropium 0.5 mg-albuterol 3 mg (2.5 mg base)/3 mL nebulization soln 3 ml INHALATION Q8H #180 ml 04/29/19 [Rx Last Taken Unknown] azithromycin 250 mg PO DAILY #4 tablet 01/21/21 [Rx Last Taken Unknown] Allergy/AdvReac Type Severity Reaction Status Date / Time clindamycin Allergy Hives Verified 03/18/19 10:24 iodine Allergy Swelling Verified 03/18/19 10:24 Penicillins [PCN] AdvReac Upset Verified 03/18/19 10:24 Stomach Family History (Updated 03/18/19 @ 10:21 by Cecy Alexander) Mother Hypertension Father COPD (chronic obstructive pulmonary disease) Emphysema of lung Social History Smoking Status: Current every day smoker Tobacco: How many years used: 45 ROS ROS ED Constitutional Constitutional ED: Denies chills or fever(s) Eyes Eyes: Reports blurry vision; Denies diplopia ENT ENT ED: Reports as per HPI, ear pain bilateral, headache(s), hearing loss, sinus pain and sinus pressure; Denies ear discharge, hoarseness, loss taste/smell, rhinorrhea or sore throat Cardiovascular Cardiovascular: Denies chest pain or palpitations Respiratory/Chest Respiratory/Chest: Denies cough or dyspnea Gastrointestinal Gastrointestinal: Reports nausea and vomiting; Denies abdominal pain or diarrhea Genitourinary Genitourinary ED: Denies dysuria or urinary frequency Musculoskeletal Musculoskeletal: Denies back pain or myalgias Integumentary Denies abscess or rash Neurologic Neurologic: Reports headache(s); Denies paresthesias or weakness EXAM Physical Exam Const Vital Signs: 01/21/21 13:53 Temperature 98.0 F Temperature Source Temporal Pulse Rate 116 H Respiratory Rate 16 Blood Pressure 126/96 H Blood Pressure Mean 106 Pulse Ox 98 Oxygen Delivery Method Room Air HEENT Reports normocephalic and moist mucous membranes HEENT Narrative: Diffuse sinus tenderness throughout especially ethmoids and maxillary. They are normal in appearance externally. No purulent nasal discharge but he does have bilateral nasal turbinate edema. TMs appear normal bilaterally, there may be some fluid behind the left. No evidence of external auditory canal inflammation or swelling. atraumatic Eyes PERRL, EOMs intact bilaterally and conjunctivae normal Eyes Narrative: photophobia Neck no lymphadenopathy, supple and no meningeal signs Resp normal respiratory effort Extremity normal to inspection and full ROM Neuro oriented x3 and CN's II-XII intact bilaterally Sensorium / Orientation: awake and alert Speech: speech normal Gait (Neuro): normal gait Motor Exam: strength 5/5 throughout Psych mental status grossly normal Skin Lesions: no lesions Rashes: no rashes MDM MDM MDM Narrative Medical decision making narrative: Symptoms are consistent with sinus pain given him a sinus headache. He has no history of seasonal allergies, and since he has been dealing with this for 3 weeks continuously that has been worsening, I think it would be reasonable to try him on a course of antibiotics. We discussed the fact that if this is not bacterial in origin antibiotics may not help, so I also advised using decongestants especially Afrin nasal spray which may give him more relief sooner than the antibiotics. We discussed follow-up he is comfortable with that plan. Discharge Plan Triage Chief Complaint: Headache ED Provider: Minh Pineda Dx/Rx/DC Orders Clinical Impression: Sinusitis, Sinus headache Instructions: ED Sinus Headache, ED Sinusitis (Antibiotic Treatment) Prescriptions: New azithromycin 250 mg tablet 250 mg PO DAILY Qty: 4 RF: 0 No Action ipratropium-albuterol 0.5 mg-3 mg(2.5 mg base)/3 mL solution for nebulization 3 ml INHALATION Q8H Qty: 180 RF: 6 albuterol sulfate 1 INHALER inhaler 1 - 2 puff inhalation Q4H PRN PRN (Reason: Shortness Of Breath) Qty: 1 RF: 0 Primary Care Provider: Yasir Lewis Referrals: Yasir Lewis MD [Primary Care Provider] - 1 Week if not improving Activity Restrictions/Additional Instructions: Get a bottle of oxymetazoline spray or Afrin, 2 sprays up each nostril up to twice daily no more than 3 days in a row, may try 15 minutes afterwards to hold nose and apply gentle pressure to see if your sinuses open. Disposition Disposition: Home, self care
[2021-01-21] MEDS: Azithromycin 250 MG Tablet 500 MG PO (14:13)
[2021-01-21 14:14] VITALS: PULSE 15
== END 2021-01-21 14:37 | disposition home or self-care (01) ==
LOC: ED 14:27
PROVIDERS: Emergency Provider Emergency Medicine
DX: J32.9 Chronic sinusitis, unspecified (principal); R51.9 Headache, unspecified; F17.200 Nicotine dependence, unspecified, uncomplicated; J44.9 Chronic obstructive pulmonary disease, unspecified; Z79.899 Other long term (current) drug therapy
CPT/HCPCS: 99283

== ENCOUNTER 2021-07-27 08:50 | Emergency (ER) | payer MEDICAID, SELFPAY ==
[2021-07-27 08:52] VITALS: BP 121/80; PULSE 112; RESP 22; TEMP 37.1; O2SAT 95; BMI 27.1
[2021-07-27 09:08] VITALS: O2SAT 95
--- NOTE | 2021-07-27 09:27 | RAD_ITS ---
STUDY: X-RAY CHEST REASON FOR EXAM: Male, 56 years old. COUGH TECHNIQUE: Single AP portable view of the chest. COMPARISON: Comparison is made with prior study dated 01/06/2019. FINDINGS: There is hyperinflation of the lungs consistent with chronic obstructive lung disease (COPD). Residual mild degree of increased markings at the lung bases suggestive of a scarring. There is no demonstrated pleural abnormality. Normal size heart. Normal mediastinum and milla. There is prominence of the pulmonary hilar arteries without peripheral pulmonary vascular congestion, suggesting pulmonary hypertension. Normal visualized aortic arch and descending thoracic aorta. Normal visualized thoracic spine. Normal visualized ribs, clavicles, and shoulders. There is no demonstrated abnormality of the visualized soft tissue structures of the upper abdomen. RAD/Chest 1 View (Portable) IMPRESSION: Hyperinflation. Persistent increased markings at the lung bases suggestive of scarring. Electronically Signed: Forrest Chapman MD at 9:56 EST , Service support ,
[2021-07-27 10:17] VITALS: BP 124/77; PULSE 62; RESP 15; O2SAT 98
--- NOTE | 2021-07-27 10:22 | EX.ED.VIS.UR ---
HPI HPI - URI History of Present Illness Chief Complaint: Cough Narrative Narrative: Patient with headache, cough, body aches for 5 days. He states he has not had a fever. He has no known sick contacts. Patient does not admit to chest pain or shortness of breath. He states his biggest problem is a headache. He has no sinus drainage. The headache was not acute in onset. He has no visual disturbances or gait disturbances. No paresthesias. Patient was not vaccinated for COVID-19. He does express that he would be willing to take monoclonal antibodies if he was positive for Covid. ROS ROS ED Constitutional Constitutional ED: Denies chills Eyes Eyes: Denies blurry vision or diplopia ENT ENT ED: Reports rhinorrhea; Denies sore throat Cardiovascular Cardiovascular: Denies chest pain or palpitations Respiratory/Chest Respiratory/Chest: Reports cough; Denies dyspnea or sputum Gastrointestinal Gastrointestinal: Denies abdominal pain, nausea or vomiting Genitourinary Genitourinary ED: Denies dysuria or hematuria Musculoskeletal Musculoskeletal: Reports myalgias; Denies arthralgias Integumentary Denies abscess or rash Neurologic Neurologic: Reports headache(s); Denies paresthesias or weakness Psychiatric Psychiatric: Denies anxiety or depression PFSH PFSH Medical History Asthma COPD (chronic obstructive pulmonary disease) DDD (degenerative disc disease) Depression Emphysema of lung History of bronchitis History of pneumonia Home Medications NK 07/27/21 [History Last Taken Unknown] Allergy/AdvReac Type Severity Reaction Status Date / Time clindamycin Allergy Hives Verified 07/27/21 08:54 iodine Allergy Swelling Verified 07/27/21 08:54 Penicillins [PCN] AdvReac Upset Verified 07/27/21 08:54 Stomach Family History Mother Hypertension Father COPD (chronic obstructive pulmonary disease) Emphysema of lung Social History Smoking Status: Current every day smoker tobacco type: cigarettes Tobacco: How many years used: 45 EXAM Physical Exam Const Vital Signs: 07/27/21 08:52 07/27/21 09:08 07/27/21 10:17 Temperature 98.7 F Temperature Source Temporal Pulse Rate 112 H 62 Respiratory Rate 22 H 15 Respiratory Effort Normal Non-Labored Respiratory Depth Normal Respiratory Pattern Normal Blood Pressure 121/80 H 124/77 H Blood Pressure Mean 93 Pulse Ox 95 98 Oxygen Delivery Method Room Air Room Air Positive well nourished General Appearance ED: NAD; Negative for pallor HEENT Reports moist mucous membranes normocephalic Neck supple and no meningeal signs Resp normal respiratory effort and clear to auscultation bilaterally Cardio Rate: regular rate Rhythm: regular rhythm GI non-tender Palpation: soft Extremity Negative for full ROM General Extremety ED: Negative for cyanosis or tenderness General Extremity: Negative for cyanosis Neuro oriented x3 and CN's II-XII intact bilaterally Sensorium / Orientation: alert Psych mental status grossly normal Skin General Skin Exam: Negative for jaundice or pallor MDM MDM MDM Narrative Medical decision making narrative: 56-year-old male presenting with 5 days of illness. He was tested for Covid and this is positive today. He does not have severe symptoms and expresses his biggest concern is a sinus pressure headache. He has not had a fever. He does not have chest pain or shortness of breath. Resting in bed his heart rate is 62 bpm, respiratory 15, he is afebrile, O2 sat 98%. Chest x-ray was performed and on my interpretation shows no acute cardiopulmonary process. Since patient was positive I did refer her for monoclonal antibodies. He is given return precautions. Impression: 1. COVID-19 Radiography Diagnostic Testing: Clinical Impression(s) from Imaging Studies Chest X-Ray 07/27/21 09:27 IMPRESSION: Hyperinflation. Persistent increased markings at the lung bases suggestive of scarring. Electronically Signed: Forrest Chapman MD at 9:56 EST , Service support , Discharge Plan Triage Chief Complaint: Cough ED Provider: Jas Terry Dx/Rx/DC Orders Instructions: Coronavirus Disease 2019 (COVID-19): Caring for Yourself or Others Prescriptions: No Action NK RF: 0 Other Ambulatory Orders: COVID Outpatient Monoclonal Antibody Referral (Routine) Timeframe: 1 Day Facility: [facility] - Location: [facility] Ordered By: Dr. Jas Terry Primary Care Provider: Care Physician,No Primary Referrals: Care Physician,No Primary [Primary Care Provider] - Disposition Disposition: Home, Self Care
== END 2021-07-27 10:28 | disposition home or self-care (01) ==
LOC: ED 10:27
PROVIDERS: Emergency Provider Student in an Organized Health Care Education/Training Program
DX: U07.1 COVID-19 (principal); F17.210 Nicotine dependence, cigarettes, uncomplicated
CPT/HCPCS: 71045; 87426; 99282

== ENCOUNTER 2022-08-08 10:16 | Inpatient (IN) | payer MEDICAID, SELFPAY ==
[2022-08-08] VITALS (11 sets, daily range): BP systolic 118–151; BP diastolic 83–100; PULSE 100–121; RESP 18–24; TEMP 36.9–39.1; O2SAT 93–100; BMI 27.1; BMI 21.2
[2022-08-08] MEDS: Lidocaine 1% (20 ml mdv) 20 ML Vial 10 ML INFILT (11:36)
[2022-08-08] MEDS: Lidocaine/Epi/Tetracaine 50 ML 1 APPLIC TOPICAL (11:36)
[2022-08-08 11:44] LABS: Absolute Lymphocyte Count 1.77 X10^3/uL (0.83-4.51); Absolute Neutrophil Count 10.9 X10^3/uL (2.0-7.7); Basophil# 0.07 X10^3/uL; Basophil% 0.5 % (0-1); Eosinophil# 0.31 X10^3/uL; Eosinophils% 2.2 % (0-5); Hematocrit 49.9 % (40-54); Hemoglobin 16.4 g/dL (13.0-16.5); Lymphocyte # 1.77 X10^3/ul (0.83-4.51); Lymphocyte % 12.4 % (19-41); Mean Corp Hgb Conc 32.9 g/dL (32-36); Mean Corpuscular Hgb 29.8 pg (27.0-32.0); Mean Corpuscular Volume 90.7 fL (80-94); Mean Platelet Vol. 8.9 fl (6.2-12.0); Monocyte# 1.14 X10^3/uL; NRBC Flagged by Analyzer 0 % (0-5); Neutrophil % 76.3 % (47-70); Platelet Count 292 K/mm3 (150-450); RBC Distribution Width CV 13.1 % (11.6-14.6); RBC Distribution Width SD 44.2 fl (35.1-43.9); White Blood Count 14.3 K/mm3 (4.4-11.0)
[2022-08-08 11:57] LABS: Anion Gap 5 (5-15); BUN 13 mg/dL (7-18); BUN/Creat Ratio 14.2 RATIO (10-20); Calcium,Total 9.5 mg/dL (8.5-10.1); Chloride 101 mmol/L (98-107); Creatinine, Serum 0.92 mg/dL (0.70-1.30); EST Glomerular Filtration Rate 91 mL/min (>60); Est Glom Filt Rate - Afr Amer 110 mL/min (>60); Estimated Creatinine Clearance 97.23 ml/min; Glucose 91 mg/dL (74-106); Potassium 4.3 mmol/L (3.5-5.1); Sodium Level 134 mmol/L (136-145)
--- NOTE | 2022-08-08 12:46 | EX.ED.DYSGE1 ---
HPI History of Present Illness Chief Complaint: Abscess Informant: patient Onset/Context/Timing Onset: Days Context: Gradual Onset Timing: Continuous Current Severity: Mild Maximum Severity: Mild Narrative Narrative: 57-year-old male history of alcohol and methamphetamine abuse. He does do I drugs. States he has not done it for weeks and typically in his right forearm but he has an abscess now on his left antecubital area. Denies fevers. Prior similar symptoms: No Recent Illness/Hospitalization: No PFSH PFSH Medical History Asthma COPD (chronic obstructive pulmonary disease) DDD (degenerative disc disease) Depression Emphysema of lung History of bronchitis History of pneumonia Stroke Home Medications NK 07/27/21 [History Last Taken Unknown] Allergy/AdvReac Type Severity Reaction Status Date / Time clindamycin Allergy Hives Verified 08/08/22 10:22 iodine Allergy Swelling Verified 08/08/22 10:22 Penicillins [PCN] AdvReac Upset Verified 08/08/22 10:22 Stomach Family History Mother Hypertension Father COPD (chronic obstructive pulmonary disease) Emphysema of lung Social History Smoking Status: Current every day smoker tobacco type: cigarettes Tobacco: How many years used: 45 ROS ROS ED ROS Narrative Denies recent illness. Review of Systems ROS Unobtainable: Denies due to encephalopathy Constitutional Constitutional ED: Denies chills or fever(s) Eyes Eyes: Denies blurry vision ENT ENT ED: Denies ear pain Cardiovascular Cardiovascular: Denies chest pain Respiratory/Chest Respiratory/Chest: Denies cough or dyspnea Genitourinary Genitourinary ED: Denies dysuria Musculoskeletal Musculoskeletal: Denies arthralgias Integumentary Reports abscess Neurologic Neurologic: Denies headache(s) Psychiatric Psychiatric: Denies anxiety Endocrine Endocrinology: Denies cold intolerance Hematologic/Lymphatic Hematologic/Lymphatic: Reports none Allergic/Immunologic Allergic/Immunologic ED: Denies mouth swelling or tongue swelling EXAM Physical Exam Narrative Exam Narrative: [id number] male no acute distress vital signs stable afebrile. H EENT exam unremarkable. Poor dentition. Neck nontender no lymphadenopathy. Lungs clear equal symmetrical bilaterally. Heart tachycardic rate about 115 no murmur. Abdomen soft nontender. Moving all 4 extremities. Left antecubital area has a half dollar sized subcu abscess with surrounding cellulitis and edema. Wrist and hand are nontender neurovascular intact with normal administrative assistant data entry strength and sensation. Normal radial pulse. This does not involve above the elbow and to about mid forearm. He has normal flexion-extension there does not appear to be any joint involvement. Const Vital Signs: 08/08/22 10:17 08/08/22 10:20 Temperature 98.4 F 98.4 F Temperature Source Temporal Temporal Pulse Rate 118 H 118 H Respiratory Rate 18 18 Blood Pressure 128/100 H 128/100 H Blood Pressure Mean 109 109 Pulse Ox 100 100 Oxygen Delivery Method Room Air Room Air Positive well nourished and well developed; Negative for obese, cachectic, contractures or unkempt General Appearance ED: well developed and NAD; Negative for unkempt, cachectic, contractures, cyanotic or diaphoretic Nutritional Appearance: Negative for cachectic or obese HEENT Reports moist mucous membranes Negative for trauma or tenderness Eyes PERRL and EOMs intact bilaterally General Eye ED: Negative for pale conjunctiva or scleral icterus Neck no lymphadenopathy, supple and no JVD General: Negative for tenderness Lymph Lymphatic: Negative for other Chest Wall inspection of chest normal and palpation of chest normal Chest: Negative for other Resp normal respiratory effort and clear to auscultation bilaterally Effort and Inspection: Negative for retractions Auscultation: Negative for rales or rhonchi Cardio regular rhythm, S1 normal heart sound, S2 normal heart sound and no murmurs; Negative for regular rate Rate: tachycardic GI normal to inspection, nondistended, normoactive bowel sounds, non-tender, non-distended and no masses Inspection: Negative for abdominal distention Auscultation: normoactive bowel sounds Palpation: soft; Negative for tender Back/Spine no CVA tenderness General Back: Negative for CVA tenderness Cervical Spine: Negative for cervical spine tenderness Thoracic Spine / Upper Back: Negative for thoracic spinal tenderness Lumbar Spine / Lower Back: Negative for lumbar spinal tenderness Extremity normal to inspection Extremity Narrative: Except left acute abscess with surrounding cellulitis and edema. Left hand is neurovascularly intact. Normal radial pulse. General Extremety ED: Yes edema and tenderness General Extremity: edema Neuro oriented x3 Sensorium / Orientation: alert; Negative for orientation impaired, lethargic or stuporous Motor Exam: strength 5/5 throughout Psych mental status grossly normal Appearance: Negative for unkempt Skin No no rashes or lesions noted and No no wounds Rashes: rashes noted Wounds: wounds noted MDM MDM MDM Narrative Medical decision making narrative: 57-year-old gentleman with a left arm abscess. He does have a history of IV methamphetamine abuse. He will be started on IV Zosyn. Screening labs will be obtained. This will need I&D. Incision and drainage of his left antecubital area. Local anesthetized with let. Then subcu lidocaine. I made a 1 to 2 cm horizontal incision was able to express 3 to 5 cc of pus and blood. Broke up loculations and use quarter inch packing gauze to keep the wound open. Patient tolerated procedure well and said his pain was much improved after I relieve the abscess. Patient is awaiting admission. He has been seen by the hospitalist. Lab Data Attestation: I reviewed the patient's lab results. Lab results narrative: CBC shows a white count of 14.3. H&H is 16 and 49. Electrolytes show sodium 134 gap of 5 normal BUN and creatinine. Normal glucose of 91. Labs: Laboratory Results - last 24 hr 08/08/22 08/08/22 11:30 11:30 WBC 14.3 H RBC 5.50 Hgb 16.4 Hct 49.9 MCV 90.7 MCH 29.8 MCHC 32.9 RDW Std Deviation 44.2 H RDW Coeff of Eliseo 13.1 Plt Count 292 MPV 8.9 Immature Gran % (Auto) 0.600 Neut % (Auto) 76.3 H Lymph % (Auto) 12.4 L [place] % (Auto) 8.0 Eos % (Auto) 2.2 Baso % (Auto) 0.5 Absolute Neuts (auto) 10.9 H Absolute Lymphs (auto) 1.77 Nucleated RBC % 0 Sodium 134 L Potassium 4.3 Chloride 101 Carbon Dioxide 28.0 Anion Gap 5 BUN 13 Creatinine 0.92 Estim Creat Clear Calc 97.23 Est GFR (MDRD) Af Amer 110 Est GFR (MDRD) Non-Af 91 BUN/Creatinine Ratio 14.2 Glucose 91 Calcium 9.5 Procedures Other Procedures Procedure(s): Left antecubital subcu abscess. Incision and drainage by ER. Tolerated well. Anesthetized with let and lidocaine subcu. 1 to 2 cm incision. Expressed 3 to 5 cc of pus and blood. Packed with quarter inch gauze. Discharge Plan Triage Chief Complaint: Abscess ED Provider: Rm Piedra Dx/Rx/DC Orders Clinical Impression: Abscess of arm, Status post incision and drainage, History of intravenous drug abuse Prescriptions: No Action NK Primary Care Provider: Lissett Duncan Referrals: [facility] Lissett Dixon [Primary Care Provider] -
--- NOTE | 2022-08-08 13:08 | PCM.HP.STD ---
HPI - General General Date of Admission: 08/08/22 HPI Narrative RACHEL SALMON, is a 57 M who presents to the hospital with an abscess in his left antecubital fossa. He is not sure where it came from because he says that he only injects drugs on his right arm. His last injection was probably about 3 weeks ago and his last alcohol use was about 10 years ago, but he did use marijuana last night. He said that he started noticing the redness and the pain starting about 3 days ago and is slowly been getting worse. Unfortunately is homeless was today he was unable to seek help until now. Denies any fevers but he did have some chills. He does have a leukocytosis and tachycardia however based on his insurance he does not appear to be septic [facility] Medical History Asthma COPD (chronic obstructive pulmonary disease) DDD (degenerative disc disease) Depression Emphysema of lung History of bronchitis History of pneumonia Stroke Home Medications NK 07/27/21 [History Last Taken Unknown] Allergy/AdvReac Type Severity Reaction Status Date / Time clindamycin Allergy Hives Verified 08/08/22 10:22 iodine Allergy Swelling Verified 08/08/22 10:22 Penicillins [PCN] AdvReac Upset Verified 08/08/22 10:22 Stomach Family History Mother Hypertension Father COPD (chronic obstructive pulmonary disease) Emphysema of lung Social History Smoking Status: Current every day smoker tobacco type: cigarettes Tobacco: How many years used: 45 ROS Constitutional Constitutional: Reports chills; Denies fatigue, fever(s) or malaise Eyes Eyes: Denies blurry vision ENT HEENT: Denies headache(s) or nasal discharge Cardiovascular Cardiovascular: Denies chest pain, dyspnea on exertion or syncope Respiratory/Chest Respiratory/Chest: Denies cough, shortness of breath at rest or shortness of breath with exertion Gastrointestinal Gastrointestinal: Denies constipation, diarrhea, nausea or vomiting Genitourinary Genitourinary: Denies dysuria Integumentary Integumentary: Reports new lesions Neurologic Neurologic: Denies focal weakness, numbness or tremor(s) Psychiatric Psychiatric: Denies anxiety or depression Vital Signs Vital Signs Vital Signs: 08/08/22 10:17 08/08/22 10:20 Temperature 98.4 F 98.4 F Temperature Source Temporal Temporal Pulse Rate 118 H 118 H Respiratory Rate 18 18 Blood Pressure 128/100 H 128/100 H Blood Pressure Mean 109 109 Pulse Ox 100 100 Oxygen Delivery Method Room Air Room Air Weight Weight: 200 lb Body Mass Index (BMI) 27.1 Physical Exam Narrative General: Alert, Oriented x3, Cooperative, No apparent distress HEENT: Atraumatic, PERRLA, EOMI, Normocephalic Oral: Moist Mucosa Neck: Supple, No JVD Lungs: Clear to auscultation, Normal air movement, No rhonchi, No wheeze, No rales Cardiovascular: Tachycardiac, regular Rhythm, Normal S1, Normal S2, No murmurs Abdomen: Soft, Non Tender, Non-Distended, No Hepato-splenomegaly Extremities: No edema, Capillary Refill Less than 3 Seconds Skin: 3 cm diameter abscess in his left antecubital fossa with extensive surrounding erythema Musculoskeletal: No Tenderness to Palpation of Joints or Extremities Neurological: Cranial nerves II-XII grossly intact, Motor Exam 5/5 strength throughout, Sensory exam intact to light touch and pain Psych/Mental Status: Normal Affect, Appropriate Results Lab / Micro Data Result Diagrams: 08/08/22 11:30 08/08/22 11:30 Labs: Laboratory Results - last 24 hr 08/08/22 11:30: WBC 14.3 H, RBC 5.50, Hgb 16.4, Hct 49.9, MCV 90.7, MCH 29.8, MCHC 32.9, RDW Std Deviation 44.2 H, RDW Coeff of Eliseo 13.1, Plt Count 292, MPV 8.9, Immature Gran % (Auto) 0.600, Neut % (Auto) 76.3 H, Lymph % (Auto) 12.4 L, [place] % (Auto) 8.0, Eos % (Auto) 2.2, Baso % (Auto) 0.5, Absolute Neuts (auto) 10.9 H, Absolute Lymphs (auto) 1.77, Nucleated RBC % 0 08/08/22 11:30: Sodium 134 L, Potassium 4.3, Chloride 101, Carbon Dioxide 28.0, Anion Gap 5, BUN 13, Creatinine 0.92, Estim Creat Clear Calc 97.23, Est GFR (MDRD) Af Amer 110, Est GFR (MDRD) Non-Af 91, BUN/Creatinine Ratio 14.2, Glucose 91, Calcium 9.5 Assessment & Plan Assessment/Plan (1) Abscess of arm: PLAN: Plan 1. Left arm abscess ? He denies that he was injecting in his left arm and he saw it started a few days ago ? I&D in the ER with wound cultures, will continue with IV vancomycin and Zosyn ? Its been about 5 years since he had an HIV or hep C test and he did agree to let us order these ? He does not meet sepsis criteria based on sofa however we will start him on some IV fluids DVT: Ambulation Charges/Coding Visit Charges Inpatient E&M: 72974 Init Hosp L2
--- NOTE | 2022-08-08 14:26 | NURSING ---
i&d with large amt foul dark red/phillips thick drng performed at bedside per dr. pemberton. wound packed with iodoform and wound cx sent. drsg with dsd and ju wrap. pt stated that already feels so much better waiting on bed for admit.
[2022-08-08] MEDS: 0.9% Normal Saline 1,000 ML 100 ML IV ×2 (16:21→19:15)
[2022-08-08] MEDS: Ensure Plus High Protein 120 ML LIQUID PO (16:21)
[2022-08-08] MEDS: 0.9% Saline Lock 10 ML Syringe IV (16:22)
--- NOTE | 2022-08-08 16:41 | PCM.RX.CS ---
Consult Pharmacy has been consulted to manage selected antiobiotic: Vancomycin Prior Doses of Antibiotics Received/Current Regimen: Medications Vancomycin HCl 1,750 mg/ (Sodium Chloride) 535 mls @ 250 mls/hr IV X1 ONE Stop: 08/08/22 19:08 Last Admin: 08/08/22 16:31 Dose: 250 mls/hr Labs: Sodium 134 mmol/L (136-145) L 08/08/22 11:30 Potassium 4.3 mmol/L (3.5-5.1) 08/08/22 11:30 Chloride 101 mmol/L (98-107) 08/08/22 11:30 Carbon Dioxide 28.0 mmol/L (21.0-32.0) 08/08/22 11:30 Anion Gap 5 (5-15) 08/08/22 11:30 BUN 13 mg/dL (7-18) 08/08/22 11:30 Creatinine 0.92 mg/dL (0.70-1.30) 08/08/22 11:30 Est GFR (MDRD) Af Amer 110 mL/min (>60) 08/08/22 11:30 Est GFR (MDRD) Non-Af 91 mL/min (>60) 08/08/22 11:30 BUN/Creatinine Ratio 14.2 RATIO (10-20) 08/08/22 11:30 Glucose 91 mg/dL (74-106) 08/08/22 11:30 Weight used for dosin kg Estimated Creatinine Clearance: 89 Goal Trough: 15-20 mcg/mL Pharmacy Plan for Drug Dosinmg given, 1250mg q12h with trough prior to 4th dose per policy. Pharmacy Service will continue to monitor and adjust dosing as required. Follow-Up Labs: Trough Vancomycin - 08/08 @ 2056
[2022-08-08] MEDS: Acetaminophen 325 MG Tablet 650 MG PO (17:00)
[2022-08-08 17:47] LABS: HIV - WCH Non-Reactive (Nonreactive)
--- NOTE | 2022-08-09 01:31 | NURSING ---
emergency documentation
--- NOTE | 2022-08-09 01:33 | NURSING ---
emergency documentation
[2022-08-09 04:39] VITALS: BP 124/70; PULSE 100; RESP 18; TEMP 37.3; O2SAT 95
[2022-08-09 05:25] LABS: Absolute Neutrophil Count 7.9 X10^3/uL (2.0-7.7); Basophil# 0.09 X10^3/uL; Basophil% 0.8 % (0-1); Eosinophil# 0.34 X10^3/uL; Eosinophils% 2.9 % (0-5); Hematocrit 45.1 % (40-54); Hemoglobin 14.9 g/dL (13.0-16.5); Lymphocyte % 18.9 % (19-41); Mean Corpuscular Hgb 29.7 pg (27.0-32.0); Mean Platelet Vol. 9.4 fl (6.2-12.0); Monocyte# 1.02 X10^3/uL; Monocyte% 8.7 % (0-10); NRBC Flagged by Analyzer 0 % (0-5); Neutrophil # 7.93 X10^3/uL (2.7-7.7); Platelet Count 282 K/mm3 (150-450); RBC Distribution Width CV 13.2 % (11.6-14.6); RBC Distribution Width SD 43.6 fl (35.1-43.9); Red Blood Count 5.01 M/mm3 (4.6-6.2); White Blood Count 11.7 K/mm3 (4.4-11.0)
[2022-08-09 05:44] LABS: Anion Gap 5 (5-15); BUN 16 mg/dL (7-18); BUN/Creat Ratio 20.3 RATIO (10-20); Calcium,Total 8.6 mg/dL (8.5-10.1); Chloride 106 mmol/L (98-107); Creatinine, Serum 0.79 mg/dL (0.70-1.30); EST Glomerular Filtration Rate 107 mL/min (>60); Est Glom Filt Rate - Afr Amer 130 mL/min (>60); Estimated Creatinine Clearance 103.65 ml/min; Glucose 134 mg/dL (74-106); Potassium 4.1 mmol/L (3.5-5.1); Sodium Level 137 mmol/L (136-145)
[2022-08-09] MEDS: Ensure Plus High Protein 120 ML LIQUID PO ×2 (08:03→17:21)
[2022-08-09 08:06] VITALS: BP 125/86; PULSE 102; RESP 16; TEMP 36.6; O2SAT 96
--- NOTE | 2022-08-09 09:50 | PCM.PN.HOSP ---
Subjective Subjective Well, no issues overnight. Heart rate is better and his pain is controlled and his arm Objective Data Objective Data Vital Signs: Vital Signs Temp Pulse Resp BP Pulse Ox O2 Del Method 97.9 F 102 H 16 125/86 H 96 Room Air 08/09/22 08:06 08/09/22 08:06 08/09/22 08:06 08/09/22 08:06 08/09/22 08:06 08/09/22 08:06 Oxygen Delivery Method Room Air Weight: 156 lb 9.6 oz Body Mass Index (BMI) 21.2 Intake & Output: Intake and Output for Last 24 Hours 08/08/22 08/09/22 08/10/22 03:59 03:59 03:59 Intake Total 4142.50 / 4142.50 954 / 954 Output Total 600 / 600 1200 / 1200 Balance 3542.50 / 3542.50 -246 / -246 Lab / Micro Data Result Diagrams: 08/09/22 04:03 08/09/22 04:03 Labs: Laboratory Results - last 24 hr 08/08/22 11:30: WBC 14.3 H, RBC 5.50, Hgb 16.4, Hct 49.9, MCV 90.7, MCH 29.8, MCHC 32.9, RDW Std Deviation 44.2 H, RDW Coeff of Eliseo 13.1, Plt Count 292, MPV 8.9, Immature Gran % (Auto) 0.600, Neut % (Auto) 76.3 H, Lymph % (Auto) 12.4 L, [place] % (Auto) 8.0, Eos % (Auto) 2.2, Baso % (Auto) 0.5, Absolute Neuts (auto) 10.9 H, Absolute Lymphs (auto) 1.77, Nucleated RBC % 0 08/08/22 11:30: Sodium 134 L, Potassium 4.3, Chloride 101, Carbon Dioxide 28.0, Anion Gap 5, BUN 13, Creatinine 0.92, Estim Creat Clear Calc 97.23, Est GFR (MDRD) Af Amer 110, Est GFR (MDRD) Non-Af 91, BUN/Creatinine Ratio 14.2, Glucose 91, Calcium 9.5 08/08/22 16:15: HIV 1&2 Antibody Non-Reactive 08/09/22 04:03: WBC 11.7 H, RBC 5.01, Hgb 14.9, Hct 45.1, MCV 90.0, MCH 29.7, MCHC 33.0, RDW Std Deviation 43.6, RDW Coeff of Eliseo 13.2, Plt Count 282, MPV 9.4, Immature Gran % (Auto) 0.700, Neut % (Auto) 68.0, Lymph % (Auto) 18.9 L, [place] % (Auto) 8.7, Eos % (Auto) 2.9, Baso % (Auto) 0.8, Absolute Neuts (auto) 7.9 H, Absolute Lymphs (auto) 2.20, Nucleated RBC % 0 08/09/22 04:03: Sodium 137, Potassium 4.1, Chloride 106, Carbon Dioxide 26.0, Anion Gap 5, BUN 16, Creatinine 0.79, Estim Creat Clear Calc 103.65, Est GFR (MDRD) Af Amer 130, Est GFR (MDRD) Non-Af 107, BUN/Creatinine Ratio 20.3 H, Glucose 134 H, Calcium 8.6 Micro: Microbiology 08/08/22 14:20 Wound Abcess - Arm Left Gram Stain - Final Physical Exam Narrative General: Alert, Oriented x3, Cooperative, No apparent distress HEENT: Atraumatic, PERRLA, EOMI, Normocephalic Oral: Moist Mucosa Neck: Supple, No JVD Lungs: Clear to auscultation, Normal air movement, No rhonchi, No wheeze, No rales Cardiovascular: Tachycardiac, regular Rhythm, Normal S1, Normal S2, No murmurs Abdomen: Soft, Non Tender, Non-Distended, No Hepato-splenomegaly Extremities: No edema, Capillary Refill Less than 3 Seconds Skin: 3 cm diameter abscess in his left antecubital fossa with extensive surrounding erythema Musculoskeletal: No Tenderness to Palpation of Joints or Extremities Neurological: Cranial nerves II-XII grossly intact, Motor Exam 5/5 strength throughout, Sensory exam intact to light touch and pain Psych/Mental Status: Normal Affect, Appropriate Assessment & Plan Assessment/Plan (1) Abscess of arm: PLAN: Plan 1. Left arm abscess ? He denies that he was injecting in his left arm and he saw it started a few days ago ? I&D in the ER with wound cultures, will continue with IV vancomycin and Zosyn ? Initial gram stain shows no organisms, will await for culture data ?IV test is negative and his hepatitis panel is pending ? He does not meet sepsis criteria based on sofa however we will start him on some IV fluids DVT: Ambulation Charges/Coding Visit Charges Inpatient E&M: 58214 Subs Hosp L2
--- NOTE | 2022-08-09 11:52 | CASEMGMT ---
[place] Assessment: Face to Face with pt for initial transition planning/care coordination assessment. RN JULIUS introduced self and role at [facility], pt voices understanding and consents to assessment. Pt is A/O x4 and answers all questions appropriately at this time. Pt didn't open eyes during assessment and answered in short sentences. Care providers, pharmacy, and demographics verified/updated. Admitting Dx: forearm abscess PCP:Lissett James Specialists:Pt denies. Preferred Pharmacy: [facility] as [facility] will not be open on Friday. Insurance: [facility] Prescription Benefit: yes LNOK: Skinny Gutierrez Jr, son Living Arrangements: Pt reports he is homeless. When asked specifically where he was staying, pt states on the streets. Pt states that is where he will return to. Pt reports being I in ADL's. Pt receives meals twice daily and knows where to go for these. Transportation: Pt does not drive nor has a vehicle. DME/HHC/SNF: Pt denies having any DME, previous HHC or SNF stays. Pt states no concerns with going home (streets) at time of dc. Pt declines need for housing resources or substance abuse resources, though still notified SW. Pt states no further concerns/needs. CM to follow. Advised pt to ask CM if any further question/concerns/needs arise, voices understanding. Pt Goal: Return home (streets) Plan: Return home
[2022-08-09] MEDS: 0.9% Normal Saline 1,000 ML 100 ML IV (13:38)
[2022-08-09 14:00] VITALS: BP 116/79; PULSE 106; RESP 16; TEMP 37; O2SAT 96
--- NOTE | 2022-08-09 15:32 | CASEMGMT ---
Social Work Pt is currently homeless. SW met with pt and introduced self and role of SW. Pt states that he has no concerns with discharge or housing concerns. Pt states he can go to the [facility] on August 18. SW inquired about immediate housing issues and pt states that he can stay with a friend. SW provided information regarding the [facility] and pt states he is aware of and uses the warming center. Pt states he has no concerns with transportation as he has a bus pass. Pt denies food insecurity as he knows where the community meals are and he utilizes them. Pt also states he has been in contact with [facility]. SW provided information on homeless shelters, Web and [employer] card with meals, and Housing information. Pt accepting information but denies any concerns or needs at this time and chooses to return to previous living situation. Pt made aware that if he changes his mind and has concerns he can reach back out to SW. JIMBO Kiran
--- NOTE | 2022-08-09 15:47 | NURSING ---
This RN taking over patients care at 15:00.
[2022-08-09 18:00] VITALS: BP 115/58; PULSE 97; RESP 18; TEMP 36.1; O2SAT 96
[2022-08-09 19:57] VITALS: BP 115/58; PULSE 97; RESP 16; TEMP 36.1; O2SAT 96
[2022-08-10 02:00] VITALS: BP 133/82; PULSE 93; RESP 16; TEMP 36.7; O2SAT 98
[2022-08-10] MEDS: 0.9% Normal Saline 1,000 ML 100 ML IV (02:29)
[2022-08-10 05:59] LABS: Absolute Neutrophil Count 5.4 X10^3/uL (2.0-7.7); Basophil# 0.09 X10^3/uL; Eosinophil# 0.47 X10^3/uL; Eosinophils% 5.2 % (0-5); Hematocrit 44.1 % (40-54); Hemoglobin 14.9 g/dL (13.0-16.5); Lymphocyte % 23.4 % (19-41); Mean Corp Hgb Conc 33.8 g/dL (32-36); Mean Corpuscular Hgb 30.6 pg (27.0-32.0); Mean Corpuscular Volume 90.6 fL (80-94); Mean Platelet Vol. 9.3 fl (6.2-12.0); Monocyte# 0.84 X10^3/uL; Monocyte% 9.4 % (0-10); NRBC Flagged by Analyzer 0 % (0-5); Neutrophil % 60.1 % (47-70); Platelet Count 319 K/mm3 (150-450); RBC Distribution Width CV 13.2 % (11.6-14.6); RBC Distribution Width SD 44.2 fl (35.1-43.9); Red Blood Count 4.87 M/mm3 (4.6-6.2)
[2022-08-10 06:23] LABS: Anion Gap 7 (5-15); BUN 23 mg/dL (7-18); BUN/Creat Ratio 30.3 RATIO (10-20); Chloride 107 mmol/L (98-107); Creatinine, Serum 0.76 mg/dL (0.70-1.30); EST Glomerular Filtration Rate 113 mL/min (>60); Est Glom Filt Rate - Afr Amer 136 mL/min (>60); Estimated Creatinine Clearance 107.74 ml/min; Glucose 96 mg/dL (74-106); Potassium 4.5 mmol/L (3.5-5.1); Sodium Level 137 mmol/L (136-145)
[2022-08-10 06:35] LABS: Vancomycin, Trough Level 11.3 ug/mL (5.0-15.0)
--- NOTE | 2022-08-10 06:41 | PCM.RX.CS ---
Consult Pharmacy has been consulted to manage selected antiobiotic: Vancomycin Type of Consult: Follow-up Suspected Infection: Skin/Soft tissue Prior Doses of Antibiotics Received/Current Regimen: Medications Vancomycin HCl 2,000 mg/ (Sodium Chloride) 540 mls @ 250 mls/hr IV Q12H JESSICA Discontinued Medications Vancomycin HCl 1,250 mg/ (Sodium Chloride) 275 mls @ 167 mls/hr IV Q12H JESSICA Last Admin: 08/10/22 06:14 Dose: Infused Labs: Sodium 137 mmol/L (136-145) 08/10/22 04:18 Potassium 4.5 mmol/L (3.5-5.1) 08/10/22 04:18 Chloride 107 mmol/L (98-107) 08/10/22 04:18 Carbon Dioxide 23.0 mmol/L (21.0-32.0) 08/10/22 04:18 Anion Gap 7 (5-15) 08/10/22 04:18 BUN 23 mg/dL (7-18) H 08/10/22 04:18 Creatinine 0.76 mg/dL (0.70-1.30) 08/10/22 04:18 Est GFR (MDRD) Af Amer 136 mL/min (>60) 08/10/22 04:18 Est GFR (MDRD) Non-Af 113 mL/min (>60) 08/10/22 04:18 BUN/Creatinine Ratio 30.3 RATIO (10-20) H 08/10/22 04:18 Glucose 96 mg/dL (74-106) 08/10/22 04:18 Vancomycin Trough 11.3 ug/mL (5.0-15.0) 08/10/22 04:18 Microbiology: Microbiology 08/08/22 14:20 Wound Abcess - Arm Left Gram Stain - Final 08/08/22 14:20 Wound Abcess - Arm Left Wound Culture - Preliminary Gram positive organism Weight used for dosin kg Estimated Creatinine Clearance: 108 Goal Trough: 15-20 mcg/mL Pharmacy Plan for Drug Dosing: Vancomycin trough level of 11.3 was below the target range of 15-20. CrCl has been increasing. The vanco dose will be increased to 2000mg q12h, and another trough will be drawn prior to 4th dose. Pharmacy Service will continue to monitor and adjust dosing as required. Follow-Up Labs: Trough Vancomycin Labs to be done on [date and time ordered]: 08/12/22 @6559
[2022-08-10 08:26] VITALS: BP 115/78; PULSE 99; RESP 16; TEMP 36.7; O2SAT 97
[2022-08-10] MEDS: Ensure Plus High Protein 120 ML LIQUID PO ×3 (08:35→17:01)
--- NOTE | 2022-08-10 09:55 | PCM.PN.HOSP ---
Subjective Subjective Doing well, no issues overnight Objective Data Objective Data Vital Signs: Vital Signs Temp Pulse Resp BP Pulse Ox O2 Del Method 98.1 F 99 16 115/78 97 Room Air 08/10/22 08:26 08/10/22 08:26 08/10/22 08:26 08/10/22 08:26 08/10/22 08:26 08/10/22 08:26 Oxygen Delivery Method Room Air Weight: 156 lb 9.6 oz Body Mass Index (BMI) 21.2 Intake & Output: Intake and Output for Last 24 Hours 08/09/22 08/10/22 08/11/22 03:59 03:59 03:59 Intake Total 4142.50 / 4142.50 6630.67 / 6630.67 487.5 / 487.5 Output Total 600 / 600 1200 / 1200 700 / 700 Balance 3542.50 / 3542.50 5430.67 / 5430.67 -212.5 / -212.5 Medical Nutrition Assessment Dietitian: Malnutrition Criteria Met Start: 08/09/22 11:55 Freq: Status: Active Protocol: Document 08/09/22 11:55 CHRISTINA (Rec: 08/09/22 11:55 CHRISTINA [id number]) Nutrition Malnutrition Evidence of Malnutrition Exists Yes Malnutrition (severe): Social/Behavioral/ Environmental Evidenced By Suboptimal Energy Intake ( Severe),Weight Loss (Severe), Physical Changes (Moderate) Clinical Problem Chronic Disease or Condition Related Malnutrition Etiology related to homeless and not having adequate access of food /fluids to meet estimated nutritional needs Signs/Symptoms as evidenced by pt meeting <50 % of est nutritional needs, 21 .7% wt loss x 6 mo, fat/muscle loss in temporal/orbital/ buccal areas, clavicles, arms/ legs Status Active Problem Recommendation Dietitian Recommendations/Changes Will continue liberal regular diet w/ ensure plus high protein 3x/day w/ medpass Will provide fortified foods w / meals for increased dar/pro if consumed. Lab / Micro Data Result Diagrams: 08/10/22 04:18 08/10/22 04:18 Labs: Laboratory Results - last 24 hr 08/10/22 04:18: Vancomycin Trough 11.3 08/10/22 04:18: WBC 9.0, RBC 4.87, Hgb 14.9, Hct 44.1, MCV 90.6, MCH 30.6, MCHC 33.8, RDW Std Deviation 44.2 H, RDW Coeff of Eliseo 13.2, Plt Count 319, MPV 9.3, Immature Gran % (Auto) 0.900, Neut % (Auto) 60.1, Lymph % (Auto) 23.4, [place] % (Auto) 9.4, Eos % (Auto) 5.2 H, Baso % (Auto) 1.0, Absolute Neuts (auto) 5.4, Absolute Lymphs (auto) 2.10, Nucleated RBC % 0 08/10/22 04:18: Sodium 137, Potassium 4.5, Chloride 107, Carbon Dioxide 23.0, Anion Gap 7, BUN 23 H, Creatinine 0.76, Estim Creat Clear Calc 107.74, Est GFR (MDRD) Af Amer 136, Est GFR (MDRD) Non-Af 113, BUN/Creatinine Ratio 30.3 H, Glucose 96, Calcium 9.0 Micro: Microbiology 08/08/22 14:20 Wound Abcess - Arm Left Gram Stain - Final 08/08/22 14:20 Wound Abcess - Arm Left Wound Culture - Preliminary Gram positive organism Physical Exam Narrative General: Alert, Oriented x3, Cooperative, No apparent distress HEENT: Atraumatic, PERRLA, EOMI, Normocephalic Oral: Moist Mucosa Neck: Supple, No JVD Lungs: Clear to auscultation, Normal air movement, No rhonchi, No wheeze, No rales Cardiovascular: Regular rate, regular Rhythm, Normal S1, Normal S2, No murmurs Abdomen: Soft, Non Tender, Non-Distended, No Hepato-splenomegaly Extremities: No edema, Capillary Refill Less than 3 Seconds Skin: 3 cm diameter abscess in his left antecubital fossa with extensive surrounding erythema Musculoskeletal: No Tenderness to Palpation of Joints or Extremities Neurological: Cranial nerves II-XII grossly intact, Motor Exam 5/5 strength throughout, Sensory exam intact to light touch and pain Psych/Mental Status: Normal Affect, Appropriate Assessment & Plan Assessment/Plan (1) Abscess of arm: PLAN: Plan 1. Left arm abscess ? He denies that he was injecting in his left arm and he saw it started a few days ago ? I&D in the ER with wound cultures, will continue with IV vancomycin and Zosyn ? Wound culture with gram-positive organism ? HIV test is negative and his hepatitis panel is pending ? We will DC IV fluids as he is able to take adequate p.o. DVT: Ambulation Charges/Coding Visit Charges Inpatient E&M: 07869 Subs Hosp L2
[2022-08-10 14:59] VITALS: BP 116/80; PULSE 96; RESP 16; TEMP 36.7; O2SAT 95
[2022-08-10] MEDS: 0.9% Saline Lock 10 ML Syringe IV (17:01)
[2022-08-10 21:15] VITALS: BP 136/76; PULSE 92; RESP 18; TEMP 36.6; O2SAT 97
[2022-08-11 04:38] VITALS: BP 116/74; PULSE 93; RESP 18; TEMP 36.7; O2SAT 96
[2022-08-11] MEDS: Ensure Plus High Protein 120 ML LIQUID PO ×3 (08:44→17:05)
[2022-08-11 09:49] VITALS: BP 123/75; PULSE 97; RESP 16; TEMP 36.6; O2SAT 96
--- NOTE | 2022-08-11 09:52 | PCM.PN.HOSP ---
Subjective Subjective Doing well, no issues overnight. Feeling a little bit better, was able to discontinue his IV fluids Objective Data Objective Data Vital Signs: Vital Signs Temp Pulse Resp BP Pulse Ox O2 Del Method 97.9 F 97 16 123/75 H 96 Room Air 08/11/22 09:49 08/11/22 09:49 08/11/22 09:49 08/11/22 09:49 08/11/22 09:49 08/11/22 09:49 Oxygen Delivery Method Room Air Weight: 156 lb 9.6 oz Body Mass Index (BMI) 21.2 Intake & Output: Intake and Output for Last 24 Hours 08/10/22 08/11/22 08/12/22 03:59 03:59 03:59 Intake Total 6630.67 / 6630.67 2241.33 / 2241.33 890 / 890 Output Total 1200 / 1200 700 / 700 800 / 800 Balance 5430.67 / 5430.67 1541.33 / 1541.33 90 / 90 Medical Nutrition Assessment Dietitian: Malnutrition Criteria Met Start: 08/09/22 11:55 Freq: Status: Active Protocol: Document 08/09/22 11:55 CHRISTINA (Rec: 08/09/22 11:55 [facility] [id number]) Nutrition Malnutrition Evidence of Malnutrition Exists Yes Malnutrition (severe): Social/Behavioral/ Environmental Evidenced By Suboptimal Energy Intake ( Severe),Weight Loss (Severe), Physical Changes (Moderate) Clinical Problem Chronic Disease or Condition Related Malnutrition Etiology related to homeless and not having adequate access of food /fluids to meet estimated nutritional needs Signs/Symptoms as evidenced by pt meeting <50 % of est nutritional needs, 21 .7% wt loss x 6 mo, fat/muscle loss in temporal/orbital/ buccal areas, clavicles, arms/ legs Status Active Problem Recommendation Dietitian Recommendations/Changes Will continue liberal regular diet w/ ensure plus high protein 3x/day w/ medpass Will provide fortified foods w / meals for increased dar/pro if consumed. Lab / Micro Data Result Diagrams: 08/10/22 04:18 08/10/22 04:18 Micro: Microbiology 08/08/22 14:20 Wound Abcess - Arm Left Gram Stain - Final 08/08/22 14:20 Wound Abcess - Arm Left Wound Culture - Preliminary Strep anginosus Streptococcus group C Physical Exam Narrative General: Alert, Oriented x3, Cooperative, No apparent distress HEENT: Atraumatic, PERRLA, EOMI, Normocephalic Oral: Moist Mucosa Neck: Supple, No JVD Lungs: Clear to auscultation, Normal air movement, No rhonchi, No wheeze, No rales Cardiovascular: Regular rate, regular Rhythm, Normal S1, Normal S2, No murmurs Abdomen: Soft, Non Tender, Non-Distended, No Hepato-splenomegaly Extremities: No edema, Capillary Refill Less than 3 Seconds Skin: 3 cm diameter abscess in his left antecubital fossa with extensive surrounding erythema Musculoskeletal: No Tenderness to Palpation of Joints or Extremities Neurological: Cranial nerves II-XII grossly intact, Motor Exam 5/5 strength throughout, Sensory exam intact to light touch and pain Psych/Mental Status: Normal Affect, Appropriate Assessment & Plan Assessment/Plan (1) Abscess of arm: PLAN: Plan 1. Left arm abscess ? He denies that he was injecting in his left arm and he saw it started a few days ago ? I&D in the ER with wound cultures, will continue with Zosyn but discontinue the vancomycin as his wound culture showing strep organisms ? HIV test is negative and his hepatitis panel is pending DVT: Ambulation Charges/Coding Visit Charges Inpatient E&M: 04882 Subs Hosp L2
[2022-08-11 14:11] VITALS: BP 114/76; PULSE 107; RESP 16; TEMP 36.8; O2SAT 97
[2022-08-11] MEDS: Cefazolin 1 GM/50 ML BAG IV ×2 (14:32→20:39)
[2022-08-11 20:30] VITALS: BP 132/74; PULSE 96; RESP 18; TEMP 37.2; O2SAT 97
[2022-08-11] MEDS: 0.9% Saline Lock 10 ML Syringe IV (20:40)
[2022-08-12 03:06] VITALS: BP 107/65; PULSE 88; RESP 18; TEMP 37; O2SAT 96
[2022-08-12] MEDS: Cefazolin 1 GM/50 ML BAG IV (04:41)
[2022-08-12 08:13] VITALS: BP 121/85; PULSE 93; RESP 18; TEMP 36.7; O2SAT 98
[2022-08-12] MEDS: Ensure Plus High Protein 120 ML LIQUID PO ×2 (08:16→11:17)
--- NOTE | 2022-08-12 11:20 | DS.PCM_ITS ---
Providers Date of Admission: 08/08/22 Date of Discharge: 08/12/22 Primary Care Physician: [facility] Consultations 08/08/22 15:37 Consult: Onc/Wound/access lead Routine Comment: Reason For Visit: FOREARM ABCESS Diagnosis Discharge Diagnosis (1) Abscess of arm: Status: Acute Code(s): L02.419 - Cutaneous abscess of limb, unspecified Medications at Discharge Home Medications cephalexin 500 mg capsule 500 mg PO .4x daily #40 caps 08/12/22 Hospital Course Operations None Procedures - (Incision and drainage left antecubital fossa abscess) Summary of Care Provided Minutes Spent on Discharge: 36 Hospital Course: Mr. Gutierrez is a 57-year-old white male who presents emergency department [facility] on 08/08/2022 with an abscess of his left antecubital fossa. He indicated initially was not clear where it came from because he typically only injects drugs into his right arm however prior to discharge when I requestioned him he did admit to previous injection into his left arm. He reported on presentation his last use of IV drugs was approximately 3 weeks ago and his last use of alcohol was 10 years ago. He did admit to marijuana use the night prior to presentation. He does follow with 180 as an outpatient. He indicated he started noticing some redness and pain in the antecubital fossa about 3 days prior to presentation and it began slowly getting worse. He denied any fevers but did have some chills. He had a leukocytosis and tachycardia on presentation but did not appear to be septic and antibiotics were initiated in the emergency department after an incision and drainage was performed. He was placed on vancomycin and Zosyn and admitted to the medical floor. Unfortunately, blood cultures were not obtained. Wound grew strep anginosis and Streptococcus C. The organisms were sensitive and he was transitioned from vancomycin and Zosyn to IV cefazolin to narrow his antibiotics. He tolerated this well and had complete resolution of his leukocytosis and his overall other lab work was unremarkable. Hepatitis studies were pending at the time of discharge. An HIV was done and found to be nonreactive. The patient was in structed in dressing changes and he was given supplies for continued dressing changes at the time of discharge. Given the sensitivities of the cultures we will place him on Keflex to complete a total of 14-day antibiotic course. He did not any have any cardiac murmur or splinter hemorrhages or other signs that he may be bacteremic and was nontoxic during his entire hospital stay. He was instructed to complete his antibiotic course and follow-up with the [facility] Moe within the next week to have his arm reevaluated. He was discharged in stable condition on 08/12/2022. Discharge diagnoses: Left antecubital abscess-strep anginosus/group C strep Leukocytosis-resolved Opiate abuse Alcohol abuse-in remission Tobacco abuse Physical Exam Const alert, oriented x3 and no apparent distress Constitutional Narrative: Thin, middle-aged white male lying in bed, appears comfortable, appears older than stated age, nontoxic General Appearance: cooperative, comfortable, well kempt and well developed Orientation / Consciousness: awake, oriented to person, oriented to place and oriented to time Exam Limitations: no limitations Nutritional Appearance: thin HEENT normocephalic, head/scalp atraumatic and moist oral mucous membranes HEENT Narrative: Mild hearing loss, edentulous, Mallampati 1, no thrush Eyes PERRL, EOMs intact bilaterally and conjunctivae normal Eyes Narrative: No scleral icterus Neck no lymphadenopathy and supple Neck Narrative: Trachea midline, no thyroid enlargement Resp normal respiratory effort, no retractions, no use of accessory muscles and clear to auscultation bilaterally Resp Narrative: Diffusely diminished but clear Auscultation: Negative for crackles, rhonchi or wheezes Cardio regular rate, regular rhythm, S1 normal heart sound, S2 normal heart sound, no murmurs, no rub, no gallops and no clicks GI normal to inspection, nondistended, normoactive bowel sounds, soft to palpation, non-tender and non-distended; Negative for hepatosplenomegaly Extremity no clubbing, cyanosis or edema Extremity Narrative: Left upper extremity with dressing in place-dressing removed and abscessed area noted without any erythema or induration surrounding the area of incision and drainage, packing in place and no significant drainage on dressing, very minimal tenderness Skin no rashes or lesions noted, No no wounds, skin turgor normal and no jaundice Neuro oriented x3, CN's II-XII intact bilaterally, moves all extremities and no focal motor deficits Sensorium / Orientation: awake, alert, oriented to person, oriented to place and oriented to time Speech: speech normal Psych affect normal Medical Records Data Medical Nutrition Assessment Dietitian: Malnutrition Criteria Met Jef: 08/09/22 11:55 Freq: Status: Active Protocol: Document 08/09/22 11:55 CHRISTINA (Rec: 08/09/22 11:55 [facility] [id number]) Nutrition Malnutrition Evidence of Malnutrition Exists Yes Malnutrition (severe): Social/Behavioral/ Environmental Evidenced By Suboptimal Energy Intake ( Severe),Weight Loss (Severe), Physical Changes (Moderate) Clinical Problem Chronic Disease or Condition Related Malnutrition Etiology related to homeless and not having adequate access of food /fluids to meet estimated nutritional needs Signs/Symptoms as evidenced by pt meeting <50 % of est nutritional needs, 21 .7% wt loss x 6 mo, fat/muscle loss in temporal/orbital/ buccal areas, clavicles, arms/ legs Status Active Problem Recommendation Dietitian Recommendations/Changes Will continue liberal regular diet w/ ensure plus high protein 3x/day w/ medpass Will provide fortified foods w / meals for increased dar/pro if consumed. Weight / BMI Weight Weight: 71.033 kg Body Mass Index (BMI) 21.2 ABG / Lab / Microbiology Data Result Diagrams: 08/10/22 04:18 08/10/22 04:18 Microbiology: Microbiology 08/08/22 14:20 Wound Abcess - Arm Left Gram Stain - Final 08/08/22 14:20 Wound Abcess - Arm Left Wound Culture - Final Strep anginosus Streptococcus group C D/C Instructions Discharge Diet: No restrictions Discharge Activity: Return to Normal Activity Meaningful Use Info Meaningful Use Diagnoses (Choose all that apply): None applicable Discharge Plan Admission Admit Date/Time: 08/08/22 13:05 Primary Reason for Your Visit: R Anticubital Fossa Abscess Attending Provider: Karine Camejo [facility] Providers: Ino Brasher Instructions Additional Instructions / Restrictions: 1. Please complete and biotics as instructed 2. Dressing changes as directed per nursing 3. Please follow-up as an outpatient to have your arm reevaluated within the next week at the [facility] as directed below. Discharge Orders/Prescriptions Prescriptions: New cephalexin 500 mg capsule 500 mg PO .4x daily Qty: 40 0RF [facility] - In 1 Week Disposition Disposition (needs filled in before D/C Order can be placed): Home, Self Care Charges/Coding Visit Charges Inpatient E&M: 02883 Disch Hosp
== END 2022-08-12 12:18 | disposition home or self-care (01) | DRG 383 ==
LOC: ED 11:18 → MS3 14:30
PROVIDERS: Admitting Provider Family Medicine; Emergency Provider Emergency Medicine; Visit Provider Internal Medicine
DX: L02.414 Cutaneous abscess of left upper limb (principal); E43 Unspecified severe protein-calorie malnutrition; F11.10 Opioid abuse, uncomplicated; F10.11 Alcohol abuse, in remission; F17.210 Nicotine dependence, cigarettes, uncomplicated; B95.4 Other streptococcus as the cause of diseases classified elsewhere; Z68.21 Body mass index [BMI] 21.0-21.9, adult; Z59.00 Homelessness unspecified; Z86.73 Personal history of transient ischemic attack (TIA), and cerebral infarction without residual deficits
CPT/HCPCS: 36415; 80048; 80074; 80202; 85025; 86703; 87070; 87075; 87077; 87186; 87205; 97802; 99285; J7030; J7040; J7050; A4216

== ENCOUNTER 2023-08-29 10:40 | Emergency (ER) | payer MEDICAID, SELFPAY ==
[2023-08-29 10:41] VITALS: BP 92/75; PULSE 62; RESP 14; TEMP 36.6; BMI 23.7
--- NOTE | 2023-08-29 11:06 | EX.ED.DYSGE1 ---
HPI History of Present Illness Chief Complaint: Flank Pain Informant: patient Onset/Context/Timing Onset: Today Narrative Narrative: Patient presents secondary to severe right flank pain. He states he woke this morning with severe pain in his right lower back. He is never felt anything like this before. No history of back problems. No history of kidney stones. [facility] Medical History Asthma COPD (chronic obstructive pulmonary disease) DDD (degenerative disc disease) Depression Emphysema of lung History of bronchitis History of intravenous drug abuse History of pneumonia Stroke Home Medications cephalexin 500 mg capsule 500 mg PO .4x daily #40 caps 08/12/22 [Rx Last Taken Unknown] hydrocodone-acetaminophen 5-325mg 5mg-325mg 1 tab PO Q6H PRN PRN Pain 3 days #10 TABLETS 08/29/23 [Rx Last Taken Unknown] ibuprofen 600 mg tablet 600 mg PO Q8H PRN PRN pain #20 TABLETS 08/29/23 [Rx Last Taken Unknown] ondansetron 4 mg disintegrating tablet 4 mg PO Q8H PRN PRN Nausea #10 tabs 08/29/23 [Rx Last Taken Unknown] Allergy/AdvReac Type Severity Reaction Status Date / Time clindamycin Allergy Hives Verified 08/29/23 10:43 iodine Allergy Swelling Verified 08/29/23 10:43 Penicillins [PCN] AdvReac Upset Verified 08/29/23 10:43 Stomach Family History Mother Hypertension Father COPD (chronic obstructive pulmonary disease) Emphysema of lung Social History Smoking Status: Current every day smoker tobacco type: cigarettes Tobacco: How many years used: 45 ROS ROS ED Constitutional Constitutional ED: Denies chills or fever(s) Eyes Eyes: Denies discharge from eye(s) ENT ENT ED: Denies discharge from eye(s), rhinorrhea or sore throat Cardiovascular Cardiovascular: Denies chest pain or palpitations Respiratory/Chest Respiratory/Chest: Denies cough or dyspnea Gastrointestinal Gastrointestinal: Denies abdominal pain, diarrhea, nausea or vomiting Genitourinary Genitourinary ED: Denies dysuria Musculoskeletal Musculoskeletal: Reports back pain; Denies extremity pain Integumentary Denies Abrasions or rash Neurologic Neurologic: Denies headache(s) or weakness Allergic/Immunologic Allergic/Immunologic ED: Denies lip swelling or urticaria EXAM Physical Exam Const Vital Signs: 08/29/23 10:41 Temperature 97.8 F Temperature Source Temporal Pulse Rate 62 Respiratory Rate 14 Blood Pressure 92/75 Blood Pressure Mean 80 Positive well nourished and well developed General Appearance ED: well developed HEENT Reports moist mucous membranes Eyes EOMs intact bilaterally Chest Wall inspection of chest normal and palpation of chest normal Resp normal respiratory effort and clear to auscultation bilaterally Cardio regular rate and regular rhythm GI non-tender Palpation: soft Back/Spine Back/Spine Narrative: Tenderness to the right lumbar paraspinal region. No midline lumbar tenderness. Extremity normal to inspection Neuro oriented x3 and no sensory deficits noted Motor Exam: strength 5/5 throughout Psych Mood & Affect: anxious Skin no rashes or lesions noted MDM MDM MDM Narrative Medical decision making narrative: IV line initiated by squad. Patient ordered morphine, Toradol, Zofran in the time of my exam. Labwork obtained to evaluate for leukocytosis, anemia, and electrolyte derangement. Urinalysis obtained to evaluate for infection/hematuria. CT flank obtained to evaluate for possible kidney stone given abrupt onset of severe pain. History & Record Review Discussion w/independent historian: Patient Lab Data Attestation: I reviewed the patient's lab results. Labs: Laboratory Results - last 24 hr 08/29/23 08/29/23 11:00 13:00 WBC 10.1 RBC 5.82 Hgb 16.8 H Hct 51.5 MCV 88.5 MCH 28.9 MCHC 32.6 RDW Std Deviation 43.1 RDW Coeff of Eliseo 13.3 Plt Count 315 MPV 9.2 Immature Gran % (Auto) 0.600 Neut % (Auto) 57.9 Lymph % (Auto) 25.0 [place] % (Auto) 10.3 H Eos % (Auto) 5.4 H Baso % (Auto) 0.8 Absolute Neuts (auto) 5.8 Absolute Lymphs (auto) 2.52 Nucleated RBC % 0 Sodium 138 Potassium 5.1 Chloride 103 Carbon Dioxide 32.0 Anion Gap 3 L BUN 26 H Creatinine 1.12 Estim Creat Clear Calc 78.91 Est GFR (MDRD) Af Amer 87 Est GFR (MDRD) Non-Af 72 BUN/Creatinine Ratio 23.2 H Glucose 107 H Calcium 10.6 H Urine Color Yellow Urine Clarity Clear Urine pH 5.0 Ur Specific [place] 1.015 Urine Protein Negative Urine Glucose (UA) Normal Urine Ketones Negative Urine Occult Blood Negative Urine Nitrite Negative Urine Bilirubin Negative Urine Urobilinogen Normal Ur Leukocyte Esterase Negative Urine RBC 0 SEEN Urine WBC 0 SEEN Ur Squamous Epith Cells 0 SEEN Urine Bacteria 0 SEEN Urine Mucus 0 SEEN Radiography Diagnostic Testing: Clinical Impression(s) from Imaging Studies Abdomen/Pelvis CT 08/29/23 11:25 IMPRESSION: Mild hepatomegaly. No evidence of obstructive uropathy. Moderate amount of fecal material is seen in the colon. Electronically Signed: Forrest Chapman MD at 11:54 EST , Treatment and Re-Evaluation :: Following administration of medications patient's pain significantly improved. CBC reveals normal white count at 10.1 with hemoglobin concentrated at 16.8. Normal differential noted. Chemistry studies are largely unremarkable with a BUN of 26 and a creatinine 1.12. Urinalysis is unremarkable. CT scan of the abdomen pelvis reveals mild hepatomegaly. No evidence of obstructive uropathy. On repeat evaluation patient remains comfortable. His story and exam findings were consistent with kidney stone, although 1 is not visualized on current imaging. I did advise him that he may have passed a small stone and was still having some spasm. I will give him a short course of medication at home should pain recur. He will be given phone number for urology if needed. Return instructions given. Discharge Plan Triage Chief Complaint: Flank Pain ED Provider: Mary Kate Kent Dx/Rx/DC Orders Clinical Impression: Flank pain Instructions: ED Flank Pain, Uncertain Cause Prescriptions: New hydrocodone-acetaminophen 5-325 mg tablet 1 tab PO Q6H PRN PRN (Reason: Pain) 3 Days Qty: 10 0RF ibuprofen 600 mg tablet 600 mg PO Q8H PRN PRN (Reason: pain) Qty: 20 0RF ondansetron 4 mg tablet,disintegrating 4 mg PO Q8H PRN PRN (Reason: Nausea) Qty: 10 0RF No Action cephalexin 500 mg capsule 500 mg PO .4x daily Qty: 40 0RF [facility] Referrals: Lorenzo Jose MD [Med Staff - Active Staff] - As Needed [facility] [Primary Care Provider[facility] - 1 Week Disposition Disposition: Home, Self Care
[2023-08-29] MEDS: Ondansetron 4 MG/2 ML Vial IV (11:11)
[2023-08-29] MEDS: Morphine 4 MG/ML Syringe IV (11:11)
[2023-08-29] MEDS: Ketorolac 15 MG/ML Vial IV (11:11)
[2023-08-29] MEDS: 0.9% Normal Saline (1000mL) 1,000 ML 999 ML IV (11:12)
--- NOTE | 2023-08-29 11:25 | CT_ITS ---
STUDY: CT ABDOMEN AND PELVIS WITHOUT CONTRAST REASON FOR EXAM: Male, 58 years old. Right flank pain. RADIATION DOSAGE (If Supplied By Facility): CTDIvol = ( 6.81 ) mGy, DLP = ( 355.39 ) mGycm TECHNIQUE: Transaxial images were obtained from the dome of the diaphragm to the symphysis pubis without oral contrast, and without intravenous contrast. Sagittal and coronal images were reconstructed. Individualized dose optimization techniques were used for this CT. COMPARISON: Comparison is made with prior study date March 26, 2018. FINDINGS: The visualized lung bases are unremarkable. Calcification of the mitral valve annulus. Coronary artery calcification. Hepatomegaly. Normal gallbladder and extrahepatic biliary system. Normal spleen. Normal pancreas. Normal bilateral adrenal glands. Normal right kidney. Normal left kidney. Normal visualized stomach. Normal small intestine. Moderate amount of fecal material is seen in the colon. Sigmoid diverticulosis. The appendix is visualized and appears normal. There is diffuse atherosclerotic calcification of the abdominal aorta, without a demonstrated aneurysm. Normal inferior vena cava. Normal retroperitoneum. Normal urinary bladder. There are prostatic calcifications. Normal abdominal wall. There are degenerative changes of the visualized lumbar spine. CT/Abdomen/Pelvis without Cont IMPRESSION: Mild hepatomegaly. No evidence of obstructive uropathy. Moderate amount of fecal material is seen in the colon. Electronically Signed: Forrest Chapman MD at 11:54 EST ,
[2023-08-29 11:26] LABS: Absolute Lymphocyte Count 2.52 X10^3/uL (0.83-4.51); Absolute Neutrophil Count 5.8 X10^3/uL (2.0-7.7); Basophil# 0.08 X10^3/uL; Basophil% 0.8 % (0-1); Eosinophil# 0.54 X10^3/uL; Eosinophils% 5.4 % (0-5); Hematocrit 51.5 % (40-54); Hemoglobin 16.8 g/dL (13.0-16.5); Lymphocyte # 2.52 X10^3/ul (0.83-4.51); Mean Corp Hgb Conc 32.6 g/dL (32-36); Mean Corpuscular Hgb 28.9 pg (27.0-32.0); Mean Corpuscular Volume 88.5 fL (80-94); Mean Platelet Vol. 9.2 fl (6.2-12.0); Monocyte# 1.04 X10^3/uL; Monocyte% 10.3 % (0-10); NRBC Flagged by Analyzer 0 % (0-5); Neutrophil # 5.82 X10^3/uL (2.7-7.7); Neutrophil % 57.9 % (47-70); Platelet Count 315 K/mm3 (150-450); RBC Distribution Width CV 13.3 % (11.6-14.6); RBC Distribution Width SD 43.1 fl (35.1-43.9); Red Blood Count 5.82 M/mm3 (4.6-6.2); White Blood Count 10.1 K/mm3 (4.4-11.0)
[2023-08-29 11:41] LABS: Anion Gap 3 (5-15); BUN 26 mg/dL (7-18); BUN/Creat Ratio 23.2 RATIO (10-20); Calcium,Total 10.6 mg/dL (8.5-10.1); Chloride 103 mmol/L (98-107); Creatinine, Serum 1.12 mg/dL (0.70-1.30); EST Glomerular Filtration Rate 72 mL/min (>60); Est Glom Filt Rate - Afr Amer 87 mL/min (>60); Estimated Creatinine Clearance 78.91 ml/min; Glucose 107 mg/dL (74-106); Potassium 5.1 mmol/L (3.5-5.1); Sodium Level 138 mmol/L (136-145)
[2023-08-29 13:10] LABS: Bacteria 0 SEEN /hpf (None Seen); Mucous, Urine 0 SEEN /hpf (<or=2+); Red Blood Cells-Urine 0 SEEN /hpf (0-5); Squamous Epithelial Cells - UA 0 SEEN /hpf (0-5); White Blood Cells 0 SEEN /hpf (0-5)
[2023-08-29 13:19] LABS: Color, Urine Yellow (Yellow); Glucose, Dipstick Normal (Normal); Ketone-Dipstick Negative (Negative); Leukocyte Esterase-Dipstick Negative /ul (Negative); Nitrite-Dipstick Negative (Negative); Occult Blood-Urine Negative /ul (Negative); Protein-Dipstick Negative (Negative); Specific Gravity, Urine 1.015 (1.002-1.030); Urine Bilirubin Dipstick Negative (Negative); Urine Clarity Clear (Clear); Urine Urobilinogen Normal (Normal)
[2023-08-29 14:16] VITALS: BP 102/81; PULSE 76; RESP 14; O2SAT 95
== END 2023-08-29 14:17 | disposition home or self-care (01) ==
PROVIDERS: Emergency Provider Emergency Medicine; Visit Provider Emergency Medicine
DX: R10.9 Unspecified abdominal pain (principal); J44.9 Chronic obstructive pulmonary disease, unspecified; F17.210 Nicotine dependence, cigarettes, uncomplicated; Z86.73 Personal history of transient ischemic attack (TIA), and cerebral infarction without residual deficits
CPT/HCPCS: 74176; 80048; 81001; 85025; 96374; 96375; 99283; J7030; A4216; J2405

== ENCOUNTER 2024-10-18 12:06 | Emergency (ER) | payer MEDICAID, SELFPAY ==
[2024-10-18 12:07] VITALS: BP 139/81; PULSE 131; RESP 22; TEMP 37.1; O2SAT 96
[2024-10-18 12:09] VITALS: BP 139/81; PULSE 131; RESP 22; TEMP 37.1; O2SAT 96
[2024-10-18 12:17] LABS: Absolute Lymphocyte Count 0.73 X10^3/uL (0.83-4.51); Absolute Neutrophil Count 6.6 X10^3/uL (2.0-7.7); Basophil# 0.07 X10^3/uL; Basophil% 0.8 % (0-1); Eosinophil# 0.03 X10^3/uL; Eosinophils% 0.3 % (0-5); Hematocrit 50.4 % (40-54); Hemoglobin 17.2 g/dL (13.0-16.5); Lymphocyte # 0.73 X10^3/ul (0.83-4.51); Lymphocyte % 8.5 % (19-41); Mean Corp Hgb Conc 34.1 g/dL (32-36); Mean Platelet Vol. 9.1 fl (6.2-12.0); Monocyte# 1.11 X10^3/uL; Monocyte% 12.9 % (0-10); NRBC Flagged by Analyzer 0 % (0-5); Neutrophil # 6.58 X10^3/uL (2.7-7.7); Neutrophil % 76.8 % (47-70); Platelet Count 245 K/mm3 (150-450); RBC Distribution Width CV 12.7 % (11.6-14.6); RBC Distribution Width SD 40.8 fl (35.1-43.9); Red Blood Count 5.73 M/mm3 (4.6-6.2); White Blood Count 8.6 K/mm3 (4.4-11.0)
--- NOTE | 2024-10-18 12:19 | EKG12_ITS ---
Test Reason : Blood Pressure : */* mmHG Vent. Rate : 129 BPM Atrial Rate : 129 BPM P-R Int : 142 ms QRS Dur : 74 ms QT Int : 286 ms P-R-T Axes : 85 79 89 degrees QTcB Int : 418 ms Sinus tachycardia Otherwise normal ECG Poor tracing Baseline artifact Confirmed by Ata Real ([id number]), slot editor JOSEPH COPPOLA ([id number]) on 10/19/2024 11:03:13 AM Referred By: Confirmed By: Ata Real
[2024-10-18 13:22] VITALS: PULSE 119; RESP 18; O2SAT 94
--- NOTE | 2024-10-18 14:08 | EX.ED.DYSGE1 ---
HPI History of Present Illness Chief Complaint: General Illness Narrative Narrative: Patient is a 59-year-old male with past medical history of asthma, COPD, depression, CVA who presents to the emergency department with a chief complaint of whole body aches, nausea vomit diarrhea. Patient states that he has been sick for few days and have been progressively getting worse prompting him to come here for the valuation management. Patient denies recent sick contacts. [facility] Medical History History of intravenous drug abuse Stroke Depression History of bronchitis History of pneumonia Emphysema of lung Asthma DDD (degenerative disc disease) COPD (chronic obstructive pulmonary disease) Home Medications ?Medication ?Instructions ?Recorded ?Last Taken ?Type cephalexin 500 mg capsule 500 mg PO .4x daily #40 caps 08/12/22 Unknown Rx hydrocodone-acetaminophen 5-325mg 1 tab PO Q6H PRN PRN Pain 3 days 08/29/23 Unknown Rx 5mg-325mg #10 TABLETS ibuprofen 600 mg tablet 600 mg PO Q8H PRN PRN pain #20 08/29/23 Unknown Rx TABLETS ondansetron 4 mg disintegrating 4 mg PO Q8H PRN PRN Nausea #10 tabs 08/29/23 Unknown Rx tablet dicyclomine 20 mg tablet 20 mg PO TID #20 tabs 10/18/24 Unknown Rx ondansetron 4 mg disintegrating 4 mg PO Q6H PRN nausea and 10/18/24 Unknown Rx tablet vomiting #20 tabs oseltamivir 75 mg capsule (Tamiflu) 75 mg PO BID 5 days #10 caps 10/18/24 Unknown Rx prednisone 50 mg tablet 50 mg PO DAILY 5 days #5 tabs 10/18/24 Unknown Rx Allergy/AdvReac Type Severity Reaction Status Date / Time clindamycin Allergy Hives Verified 10/18/24 12:09 iodine Allergy Swelling Verified 10/18/24 12:09 Penicillins (PCN) AdvReac Upset Verified 10/18/24 12:09 Stomach Family History Mother Hypertension Father COPD (chronic obstructive pulmonary disease) Emphysema of lung Social History Smoking Status: Current every day smoker tobacco type: cigarettes Tobacco: How many years used: 45 ROS ROS ED ROS Narrative Constitutional: Course whole body aches, fever, chills, headache Cardiovascular: Denies chest pain or palpitation Respiratory: Complains of cough denies shortness of breath Abdomen: Complains of nausea vomiting diarrhea as noted above denies any abdominal pain : Denies any urinary symptoms Neurological: Denies numbness, weakness, tingling Musculoskeletal: Denies back pain Skin: Denies any rashes or lesions EXAM Physical Exam Narrative Exam Narrative: General: Patient sitting in hallway her chair did not appear to be acute distress Head: Atraumatic, normocephalic Eyes: PERRL bilaterally, EOMI bilateral, no conjunctival injection noted Neck: Soft, supple, trachea midline Cardiovascular: Regular rate and rhythm no murmurs gallops rubs noted Respiratory: Clear to auscultation bilaterally no rales rhonchi or wheezes noted Abdomen: Soft, nondistended, nontender to palpation Extremities: +5/5 strength noted in the bilateral upper and lower extremities, radial pulses +2/4 in the bilateral extremities, no pedal edema on exam Neurological: Patient follow commands knew that he was at [facility] year is 2024 Skin: Warm, dry, intact no rashes or lesions noted Const Vital Signs: 10/18/24 12:07 10/18/24 12:09 10/18/24 12:28 Temperature 98.8 F 98.8 F Temperature Source Oral Oral Pulse Rate 131 H 131 H Respiratory Rate 22 H 22 H Respiratory Effort Respiratory Pattern Blood Pressure 139/81 H 139/81 H Blood Pressure Mean 100 100 Pulse Ox 96 96 Oxygen Delivery Method Room Air Room Air Room Air 10/18/24 12:30 10/18/24 13:22 Temperature Temperature Source Pulse Rate 119 H Respiratory Rate 18 Respiratory Effort Short of Breath Respiratory Pattern Tachypnea Blood Pressure Blood Pressure Mean Pulse Ox 94 Oxygen Delivery Method Room Air MDM MDM MDM Narrative Medical decision making narrative: Patient is a 59-year-old male who presented to the emergency department chief complaint of diffuse bodyaches, nausea vomiting diarrhea. On the differential diagnose includes but not limited to influenza, COVID, other viral gastroenteritis/upper respiratory infection secondary viral etiology, pneumonia. Once workup is obtained reviewed he will be reevaluated. Patient test positive for influenza A here in the emergency department. He was given IV fluids. Patient be given a dose of prednisone for his history of COPD and asthma in the setting influenza, Zofran, Tylenol for his body aches and his nausea as well as Bentyl. Patient be given prescriptions for these medications as well. He is encouraged to continue supportive care rotate Tylenol and ibuprofen [id number] and use prescriptions as prescribed. He is encouraged to hydrate orally and follow-up with his primary care physician outpatient setting. He is encouraged return with worsening symptoms and concerns. He is agreeable this plan he like to go home at this point time all question concerns answered he is discharged home in stable condition. Lab Data Labs: Laboratory Results - last 24 hr 10/18/24 12:00 WBC 8.6 RBC 5.73 Hgb 17.2 H Hct 50.4 MCV 88.0 MCH 30.0 MCHC 34.1 RDW Std Deviation 40.8 RDW Coeff of Eliseo 12.7 Plt Count 245 MPV 9.1 Immature Gran % (Auto) 0.700 Neut % (Auto) 76.8 H Lymph % (Auto) 8.5 L [place] % (Auto) 12.9 H Eos % (Auto) 0.3 Baso % (Auto) 0.8 Absolute Neuts (auto) 6.6 Absolute Lymphs (auto) 0.73 L Nucleated RBC % 0 Discharge Plan Triage Chief Complaint: General Illness ED Provider: Mckinley Montalvo Dx/Rx/DC Orders Clinical Impression: Influenza A, COPD (chronic obstructive pulmonary disease) Prescriptions: New prednisone 50 mg tablet 50 mg PO DAILY 5 Days Qty: 5 0RF ondansetron 4 mg tablet,disintegrating 4 mg PO Q6H PRN (Reason: nausea and vomiting) Qty: 20 0RF dicyclomine 20 mg tablet 20 mg PO TID Qty: 20 0RF oseltamivir [Tamiflu] 75 mg capsule 75 mg PO BID 5 Days Qty: 10 0RF No Action cephalexin 500 mg capsule 500 mg PO .4x daily Qty: 40 0RF hydrocodone-acetaminophen 5-325 mg tablet 1 tab PO Q6H PRN PRN (Reason: Pain) 3 Days Qty: 10 0RF ibuprofen 600 mg tablet 600 mg PO Q8H PRN PRN (Reason: pain) Qty: 20 0RF ondansetron 4 mg tablet,disintegrating 4 mg PO Q8H PRN PRN (Reason: Nausea) Qty: 10 0RF Primary Care Provider: [facility] Referrals: [facility] Dixon [Primary Care Provider] - Activity Restrictions/Additional Instructions: Start taking the steroids tomorrow as you were given your first dose here in the emergency department. Use rest prescriptions as prescribed. Ensure adequate hydration. Rotate Tylenol and ibuprofen [id number] for fever and pain control when you do this you can take something every 3 hours max dose of Tylenol is 4000 mg max dose of ibuprofen is 3200 mg. Follow-up with your primary care physician. Return with any other concerns. He tested positive for influenza A. Print Language: Chinese Disposition Disposition: Home, Self Care
[2024-10-18] MEDS: Acetaminophen 500 MG Tablet 1000 MG PO (14:13)
[2024-10-18] MEDS: Dicyclomine 10 MG Capsule 20 MG PO (14:13)
[2024-10-18] MEDS: Ondansetron ODT 4 MG Tablet PO (14:14)
[2024-10-18] MEDS: predniSONE 20 MG Tablet 60 MG PO (14:14)
[2024-10-18 14:15] LABS: Anion Gap 14 (5-15); BUN 27 mg/dL (4-19); BUN/Creat Ratio 21.3 RATIO (10-20); Calcium 9.6 mg/dL (7.6-11.0); Carbon Dioxide 24.1 mmol/L (22.0-29.0); Chloride 93 mmol/L (96-108); Creatinine, Serum 1.27 mg/dL (0.70-1.20); EST Glomerular Filtration Rate 65 (>60); Glucose 122 mg/dL (70-99); Potassium 4.4 mmol/L (3.3-5.1); Sodium Level 131 mmol/L (133-145)
== END 2024-10-18 14:39 | disposition home or self-care (01) ==
PROVIDERS: Emergency Provider Emergency Medicine; Visit Provider Emergency Medicine
DX: J10.1 Influenza due to other identified influenza virus with other respiratory manifestations (principal); J44.9 Chronic obstructive pulmonary disease, unspecified; F17.210 Nicotine dependence, cigarettes, uncomplicated; Z86.73 Personal history of transient ischemic attack (TIA), and cerebral infarction without residual deficits
CPT/HCPCS: 80048; 85025; 87631; 93005; 94760; 99284

== ENCOUNTER 2024-11-02 15:03 | Inpatient (IN) | payer MEDICAID, SELFPAY ==
[2024-11-02] VITALS (16 sets, daily range): BP systolic 105–153; BP diastolic 41–91; PULSE 67–135; RESP 14–28; TEMP 36.2–37.2; O2SAT 78–100; BMI 24.4; BMI 24.0
--- NOTE | 2024-11-02 15:21 | EKG12_ITS ---
Test Reason : SOB Blood Pressure : */* mmHG Vent. Rate : 134 BPM Atrial Rate : 134 BPM P-R Int : 118 ms QRS Dur : 88 ms QT Int : 296 ms P-R-T Axes : 88 92 72 degrees QTcB Int : 442 ms Sinus tachycardia Rightward axis Borderline ECG Confirmed by ILENE JACOBS, EZEKIEL ([id number]), visual effects editor JOSEPH COPPOLA ([id number]) on 11/03/2024 8:48:35 AM Referred By: Confirmed By: EZEKIEL ODOM MD
--- NOTE | 2024-11-02 15:23 | ED.VIS.DYS ---
HPI History of Present Illness Chief Complaint: Shortness of Breath Informant: patient Narrative Narrative: 59-year-old male states he has been short of breath increasing for the past 2 to 3 days. States he had influenza maybe 3 weeks ago, he was at home resting and taking prescribed medications for it, then he came back because he started getting short of breath and was diagnosed with pneumonia treated as an outpatient maybe 2 weeks ago and did well but now things are getting worse again. He has some chest tightness, coughing. He states he does not have a rescue inhaler does not have a nebulizer machine to use to help him at home. Upon getting here and being placed on oxygen prior to my arrival he states is already starting to help but he is still very dyspneic. States he was having diarrhea and black stools but that is resolved. Denies any nausea or vomiting. He has mild epigastric discomfort sometimes gets worse with eating he states, he denies any melena now. States his ears feel clogged and uncomfortable, bilaterally. No sore throat. No headache. No leg edema or orthopnea. PFSH PFS Medical History History of intravenous drug abuse Stroke Depression History of bronchitis History of pneumonia Emphysema of lung Asthma DDD (degenerative disc disease) COPD (chronic obstructive pulmonary disease) Home Medications ?Medication ?Instructions ?Recorded ?Last Taken ?Type NK 11/02/24 Unknown History Allergy/AdvReac Type Severity Reaction Status Date / Time clindamycin Allergy Hives Verified 10/18/24 12:09 iodine Allergy Swelling Verified 10/18/24 12:09 Penicillins (PCN) AdvReac Upset Verified 10/18/24 12:09 Stomach Family History Mother Hypertension Father COPD (chronic obstructive pulmonary disease) Emphysema of lung Social History Smoking Status: Current every day smoker tobacco type: cigarettes Tobacco: How many years used: 45 ROS ROS ED Constitutional Constitutional ED: Reports fatigue; Denies chills or fever(s) Eyes Eyes: Denies change in vision or diplopia ENT ENT ED: Reports ear pain bilateral (More clogged than pain, trouble hearing out of them and feels congested) and nasal congestion; Denies rhinorrhea or sore throat Cardiovascular Cardiovascular: Reports lightheadedness; Denies orthopnea, palpitations or syncope Respiratory/Chest Respiratory/Chest: Reports cough and dyspnea; Denies orthopnea Gastrointestinal Gastrointestinal: Reports abdominal pain, melena and nausea; Denies diarrhea, hematochezia or vomiting Genitourinary Genitourinary ED: Denies dysuria or hematuria Musculoskeletal Musculoskeletal: Denies back pain or neck pain Integumentary Denies abscess or rash Neurologic Neurologic: Denies headache(s), paresthesias or weakness EXAM Physical Exam Const Vital Signs: 11/02/24 15:03 11/02/24 15:08 11/02/24 15:09 Temperature 99 F 98 F Temperature Source Temporal Oral Pulse Rate 67 Respiratory Rate 28 H Respiratory Effort Short of Breath Labored Respiratory Pattern Grunting Blood Pressure 117/91 H Blood Pressure Mean 99 Pulse Ox 78 Oxygen Delivery Method Room Air Oxygen Flow Rate (L/min) 11/02/24 15:10 11/02/24 15:28 11/02/24 15:29 Temperature 98 F Temperature Source Oral Pulse Rate 135 H 120 H Respiratory Rate 22 H 19 H Respiratory Effort Respiratory Pattern Normal Blood Pressure 113/75 Blood Pressure Mean 87 Pulse Ox 100 Oxygen Delivery Method Nasal Cannula Nasal Cannula Oxygen Flow Rate (L/min) 3 3 11/02/24 17:00 11/02/24 17:00 Temperature 98 F Temperature Source Oral Pulse Rate 113 H Respiratory Rate 20 H Respiratory Effort Respiratory Pattern Blood Pressure 153/69 H 108/78 Blood Pressure Mean 97 88 Pulse Ox 100 Oxygen Delivery Method Nasal Cannula Oxygen Flow Rate (L/min) 3 Positive well nourished and well developed Constitutional Narrative: Keenly alert in mild respiratory distress able to converse and respond to questions General Appearance ED: well developed HEENT Reports moist mucous membranes normocephalic and atraumatic Eyes PERRL and EOMs intact bilaterally Neck full ROM, no lymphadenopathy, supple, no meningeal signs and no JVD Resp Resp Narrative: Mild respiratory distress, very diminished throughout, but equally so, otherwise clear, trachea midline. When not speaking, occasionally grunting on expiration. Cardio regular rate, regular rhythm and no murmurs Rate: tachycardic GI non-distended GI Narrative: Mild epigastric tenderness, no pulsatile mass palpable Auscultation: normoactive bowel sounds Palpation: soft; Negative for guarding or rebound tenderness present Rectal Exam: normal sphincter tone and heme positive stool Back/Spine no CVA tenderness General Back: other FROM Extremity normal to inspection General Extremety ED: Negative for edema, pulses abnormal or tenderness General Extremity: Negative for edema or pulses abnormal Neuro oriented x3, CN's II-XII intact bilaterally and no sensory deficits noted Sensorium / Orientation: awake and alert Motor Exam: strength 5/5 throughout Psych Mood & Affect: anxious Skin no rashes or lesions noted and no wounds Sepsis Attestation Sepsis Alert: Yes Sepsis Attestation: Agree w/Sepsis Date exam was performed: 11/02/24 Time exam was performed: 16:00 Possible Source of Sepsis: Pulmonary Sepsis Organ Dysfunction Criteria Present: SBP decrease of more than 40 mmHg and Lactic Acid > 2 mmol/L Fluid Resuscitation Fluid Resuscitation ordered: Fluids not indicated (fluids ordered per sepsis treatment protocol/order set; no bolus indicated) MDM MDM MDM Narrative Medical decision making narrative: Patient's hemoglobin returned at 5.3. His last hemoglobin a week or 2 ago was 17. I saw he has a history of alcohol abuse, he states he has been sober for 10 years and has been having epigastric discomfort when he eats for about 3 weeks. This is all suspicious for gastric ulcer. He denies having melena or hematemesis at this time. I consented the patient for blood transfusion. We discussed the pros and cons, he understands the risks and consents to getting blood. His Hemoccult is positive and his stool is melanotic without gross blood, along with his epigastric pain this is all consistent with an upper GI source of blood loss. He was given IV pantoprazole as well as Carafate because of his epigastric pain, but he is not having signs of acute bleeding. With IV fluids and nebulizers he is breathing better and his heart rate has improved from 130s down to 113. He does have a leukocytosis that is 1 view chest x-ray my interpretation appears to show some bilateral infiltrates which radiology was in agreement with, so he was given sepsis protocol antibiotics; since his lactate returned a little elevated but not over 4, and his vital signs are improving with stable blood pressure without signs of shock he does not require fluid bolusing at this time. Discussed with GI we will be available tomorrow to see/evaluate. Patient EKG, troponin, BNP all normal, consistent with COPD-related dyspnea. Will admit to ICU given major Hgb drop and initial significant tachycardia. Lab Data Attestation: I reviewed the patient's lab results. Labs: Laboratory Results - last 24 hr 11/02/24 11/02/24 15:26 15:39 WBC 17.3 H RBC 1.76 L Hgb 5.3 L* Hct 16.7 L MCV 94.9 H MCH 30.1 MCHC 31.7 L RDW Std Deviation 49.4 H RDW Coeff of Eliseo 15.4 H Plt Count 696 H MPV 8.5 Immature Gran % (Auto) 4.600 H Neut % (Auto) 67.0 Lymph % (Auto) 20.0 [place] % (Auto) 7.3 Eos % (Auto) 0.8 Baso % (Auto) 0.3 Absolute Neuts (auto) 11.6 H Absolute Lymphs (auto) 3.46 Nucleated RBC % 0.3 Differential Comment COMMENT Diff Path Review May foll Sodium 134 Potassium 4.2 Chloride 101 Carbon Dioxide 24.3 Anion Gap 9 BUN 15 Creatinine 0.87 Estim Creat Clear Calc 100.34 Est GFR (MDRD) Non-Af 99 BUN/Creatinine Ratio 17.5 Glucose 144 H Lactic Acid 2.5 H* Calcium 8.6 Troponin T High Sens 10 NT pro BNP II 361 Blood Type A NEGATIVE Antibody Screen NEGATIVE Crossmatch See Detail Radiography Diagnostic Testing: Clinical Impression(s) from Imaging Studies Chest X-Ray 11/02/24 15:45 IMPRESSION: Bibasilar atelectasis or pneumonia. Reading [facility] Rhythm Strip Rhythm Strip: Sinus Tach Rate: 134 Ectopy: None EKG Initial EKG: Attestation: I personally reviewed and interpreted this EKG as follows: Interpretation: No Acute Injury Pattern and Sinus Tachycardia Prior EKG tracings: available for review Prior: Unchanged Management Discussion w/another healthcare provider: Hospitalist and Chemical Operator ([facility], contacted with patient info) Critical Care Time Critical Care Time: Yes Critical care time (excluding procedures): 30-74 minutes (38 min), Including time spent:, Discussing w/Patient &/or Family/Automatic Spinning Lathe Setter, Discussing w/Consultants, Arranging Admission or Transfer and Performing Direct Patient Care at Bedside Discharge Plan Dx/Rx/DC Orders Clinical Impression: Hypoxemia, Sepsis, Pneumonia, ABLA (acute blood loss anemia), UGIB (upper gastrointestinal bleed) Disposition Disposition: Acute Care Hospital [facility]
[2024-11-02] MEDS: Albuterol 2.5 MG/3 ML VIAL.NEB. INHALATION (15:28)
[2024-11-02] MEDS: Ipratropium/Albuterol Sulfate 3 ML AMPUL.NEB INHALATION ×2 (15:28→20:05)
[2024-11-02] MEDS: MethylPREDNISolone 125 MG/2 ML Vial IV (15:29)
[2024-11-02 15:33] LABS: Absolute Lymphocyte Count 3.46 X10^3/uL (0.83-4.51); Absolute Neutrophil Count 11.6 X10^3/uL (2.0-7.7); Basophil# 0.06 X10^3/uL; Basophil% 0.3 % (0-1); Eosinophil# 0.14 X10^3/uL; Eosinophils% 0.8 % (0-5); Hematocrit 16.7 % (40-54); Lymphocyte # 3.46 X10^3/ul (0.83-4.51); Mean Corp Hgb Conc 31.7 g/dL (32-36); Mean Corpuscular Hgb 30.1 pg (27.0-32.0); Mean Corpuscular Volume 94.9 fL (80-94); Mean Platelet Vol. 8.5 fl (6.2-12.0); Monocyte# 1.26 X10^3/uL; Monocyte% 7.3 % (0-10); NRBC Flagged by Analyzer 0.3 % (0-5); Neutrophil # 11.59 X10^3/uL (2.7-7.7); POSITIVE COUNT YES; Platelet Count 696 K/mm3 (150-450); RBC Distribution Width CV 15.4 % (11.6-14.6); RBC Distribution Width SD 49.4 fl (35.1-43.9); Red Blood Count 1.76 M/mm3 (4.6-6.2); White Blood Count 17.3 K/mm3 (4.4-11.0)
[2024-11-02 15:38] LABS: Differential Indicated SCAN CRITERIA MET; Hemoglobin 5.3 g/dL (13.0-16.5)
--- NOTE | 2024-11-02 15:45 | RAD_ITS ---
EXAM: XR Chest, 1 View CLINICAL INDICATION: SOB TECHNIQUE: Frontal view of the chest. COMPARISON: No relevant prior studies available. FINDINGS: LUNGS AND PLEURAL SPACES: Bibasilar atelectasis or pneumonia. No pneumothorax. HEART: Unremarkable. No cardiomegaly. MEDIASTINUM: Unremarkable. Normal mediastinal contour. BONES/JOINTS: Unremarkable. No acute fracture. RAD/Chest 1 View (Portable) IMPRESSION: Bibasilar atelectasis or pneumonia. Reading Location[facility]
[2024-11-02 16:02] LABS: Anion Gap 9 (5-15); BUN 15 mg/dL (4-19); BUN/Creat Ratio 17.5 RATIO (10-20); Calcium,Total 8.6 mg/dL (7.6-11.0); Carbon Dioxide 24.3 mmol/L (21.0-32.0); Chloride 101 mmol/L (98-108); Creatinine, Serum 0.87 mg/dL (0.70-1.20); EST Glomerular Filtration Rate 99 (>60); Estimated Creatinine Clearance 100.34 ml/min (50-250); Glucose 144 mg/dL (70-99); Potassium 4.2 mmol/L (3.3-5.1); Sodium Level 134 mmol/L (133-145)
[2024-11-02] MEDS: 0.9% Normal Saline (1000mL) 1,000 ML 250 ML IV (16:21)
[2024-11-02 16:22] LABS: Pathologist Review May foll
[2024-11-02] MEDS: Ceftriaxone 2 GM in 0.9% Normal Saline (50mL MB+) 50 ML IV (16:25)
[2024-11-02 16:32] LABS: Pro- Brain NATRIURETIC PEPTIDE 361 pg/mL (<=900); Troponin T High Sensitivity 10 ng/L (<=22)
[2024-11-02 16:37] LABS: Lactic Acid 2.5 mmol/L (0.0-2.0)
[2024-11-02] MEDS: Azithromycin 500 MG in 0.9% Normal Saline (250mL Bag) 250 ML 255 MG IV (17:08)
--- NOTE | 2024-11-02 17:45 | PCM.HP.STD ---
HPI - General General Date of Admission: 11/02/24 Date of Service: 11/02/24 Chief Complaint: Worsening shortness of breath on exertion with abdominal pain and melena HPI Narrative RACHEL SALMON, is a 59 M who presented to [facility] on 11/02/2024 with worsening shortness of breath on exertion with abdominal pain and melena. Patient was recently seen in the ED here on 10/18 for nausea/vomiting/diarrhea and bodyaches. Tested positive for influenza A. He was given IV fluids and other medications for supportive care in the ED with improvement and was able to be discharged home. States he felt well for about a week but then began to have some upper abdominal pain along with dark tarry stools. States he was having frequent dark tarry stools for about a week but did not know what they could be from. He then began to develop shortness of breath especially with exertion over the past 2 to 3 days so today he came in for further evaluation. In the ED he was found to have a hemoglobin of 5.3, significantly decreased from hemoglobin of 17.1 in the ED on 10/18. Baseline hemoglobin appears to be around 15-16. Stool occult test positive. Chest x-ray showed bibasilar atelectasis versus pneumonia. CT abdomen pelvis without contrast (iodine allergy) showed no acute intra-abdominal findings. Patient was tachycardic to the 130s initially. He was given IV fluids with improvement to the 110s. He then had 2 units of blood ordered and hospitalist was contacted for admission. I saw the patient at bedside in the ED. Patient was mildly fatigued appearing and jaundiced on exam but otherwise was laying back comfortably in bed and in no acute distress. Patient states that he feels somewhat better after being given IV fluids but continues to feel weaker and more fatigued than his baseline. Also notes that he feels hungry and thirsty right now. Denies any shortness of breath at rest. Denies any fevers or chills. Denies any cough or sputum production. He does report ongoing epigastric pain that has been fairly steady over the past several days. Denies any history of GERD prior to this. Importantly, patient does have ibuprofen 600 mg every 8 hours for pain noted on his med list and states that he takes ibuprofen somewhat frequently for generalized musculoskeletal pain. He also was recently prescribed a short prednisone burst of 50 mg for 5 days in setting of recent flu infection. No other acute concerns at this time. [facility], [facility] Medical History (Updated 11/02/24 @ 19:25 by Jane Francis) Substance abuse Anxiety Kidney stones Pancreatitis GI bleed Smoker Irregular heart beat History of intravenous drug abuse Stroke Depression History of bronchitis History of pneumonia Emphysema of lung Asthma DDD (degenerative disc disease) COPD (chronic obstructive pulmonary disease) Home Medications ?Medication ?Instructions ?Recorded ?Last Taken ?Type NK 11/02/24 Unknown History Allergy/AdvReac Type Severity Reaction Status Date / Time clindamycin Allergy Hives Verified 10/18/24 12:09 iodine Allergy Swelling Verified 10/18/24 12:09 Penicillins (PCN) AdvReac Upset Verified 10/18/24 12:09 Stomach Family History Mother Hypertension Father COPD (chronic obstructive pulmonary disease) Emphysema of lung Social History Smoking Status: Current every day smoker tobacco type: cigarettes Tobacco: How many years used: 45 ROS Constitutional Constitutional: Reports fatigue and weakness; Denies chills or fever(s) Eyes Eyes: Denies change in vision Cardiovascular Cardiovascular: Reports dyspnea on exertion; Denies chest pain, edema or lightheadedness Respiratory/Chest Respiratory/Chest: Reports cough and shortness of breath with exertion; Denies productive cough, shortness of breath at rest or wheezing Gastrointestinal Gastrointestinal: Reports abdominal pain, dyspepsia and melena; Denies constipation, nausea or vomiting Genitourinary Genitourinary: Denies dysuria Musculoskeletal Musculoskeletal: Denies arthralgias or myalgias Neurologic Neurologic: Denies dizziness or headache(s) Vital Signs Vital Signs Vital Signs: 11/02/24 15:03 11/02/24 15:08 11/02/24 15:09 Temperature 99 F 98 F Temperature Source Temporal Oral Pulse Rate 67 Respiratory Rate 28 H Respiratory Effort Short of Breath Labored Respiratory Pattern Grunting Blood Pressure 117/91 H Blood Pressure Mean 99 Pulse Ox 78 Oxygen Delivery Method Room Air Oxygen Flow Rate (L/min) 11/02/24 15:10 11/02/24 15:28 11/02/24 15:29 Temperature 98 F Temperature Source Oral Pulse Rate 135 H 120 H Respiratory Rate 22 H 19 H Respiratory Effort Respiratory Pattern Normal Blood Pressure 113/75 Blood Pressure Mean 87 Pulse Ox 100 Oxygen Delivery Method Nasal Cannula Nasal Cannula Oxygen Flow Rate (L/min) 3 3 11/02/24 17:00 11/02/24 17:00 Temperature 98 F Temperature Source Oral Pulse Rate 113 H Respiratory Rate 20 H Respiratory Effort Respiratory Pattern Blood Pressure 153/69 H 108/78 Blood Pressure Mean 97 88 Pulse Ox 100 Oxygen Delivery Method Nasal Cannula Oxygen Flow Rate (L/min) 3 Weight Weight: 81.647 kg Body Mass Index (BMI) 24.4 Physical Exam Const alert, oriented x3, no apparent distress and average body habitus Constitutional Narrative: Middle-age male, mildly fatigued appearing, whole-body jaundice noted, otherwise sitting back comfortably in bed, conversing normally and in no acute distress. General Appearance: cooperative and comfortable HEENT normocephalic, head/scalp atraumatic, hearing grossly normal bilaterally and nasal mucous membranes and turbinates normal HEENT Narrative: Dry mucous membranes. Eyes PERRL, EOMs intact bilaterally and conjunctivae normal Neck full ROM Chest inspection of chest normal Resp normal respiratory effort, normal air movement, no use of accessory muscles and clear to auscultation bilaterally Cardio no murmurs and peripheral pulses 2+ throughout Cardio Narrative: Tachycardic, regular rhythm. GI GI Narrative: Abdomen mild to moderately tender to palpation in epigastric area. Otherwise soft and nondistended. Back/Spine normal ROM Extremity normal to inspection, full ROM and no pedal edema Skin no rashes or lesions noted Neuro moves all extremities and no focal motor deficits Speech: speech normal Motor Exam: strength 5/5 throughout Psych mental status grossly normal Results Lab / Micro Data 11/02/24 15:26 11/02/24 15:26 Labs: Laboratory Results - last 24 hr 11/02/24 15:26: WBC 17.3 H, RBC 1.76 L, Hgb 5.3 L*, Hct 16.7 L, MCV 94.9 H, MCH 30.1, MCHC 31.7 L, RDW Std Deviation 49.4 H, RDW Coeff of Eliseo 15.4 H, Plt Count 696 H, MPV 8.5, Immature Gran % (Auto) 4.600 H, Neut % (Auto) 67.0, Lymph % (Auto) 20.0, [place] % (Auto) 7.3, Eos % (Auto) 0.8, Baso % (Auto) 0.3, Absolute Neuts (auto) 11.6 H, Absolute Lymphs (auto) 3.46, Nucleated RBC % 0.3, Differential Comment COMMENT, Diff Path Review May foll, Sodium 134, Potassium 4.2, Chloride 101, Carbon Dioxide 24.3, Anion Gap 9, BUN 15, Creatinine 0.87, Estim Creat Clear Calc 100.34, Est GFR (MDRD) Non-Af 99, BUN/Creatinine Ratio 17.5, Glucose 144 H, Lactic Acid 2.5 H*, Calcium 8.6, Troponin T High Sens 10, NT pro BNP II 361 11/02/24 15:39: Blood Type A NEGATIVE, Antibody Screen NEGATIVE, Crossmatch See Detail Micro: Microbiology 11/02/24 16:50 Stool Stool Occult Blood ([facility]) - Final Occult Blood Positive 11/02/24 15:30 Mucosa - Nose SARS-CoV-2, Influenza & RSV (PCR) - Final Rhythm Strip Rhythm Strip: Sinus Tach Rate: 134 Ectopy: None Imaging Radiology Impression Chest X-Ray 11/02/24 15:45 IMPRESSION: Bibasilar atelectasis or pneumonia. Reading Location: [facility] Assessment & Plan Assessment/Plan (1) ABLA (acute blood loss anemia): (2) UGIB (upper gastrointestinal bleed): PLAN: Plan Patient is a 59-year-old male who presented to [facility] ED on 11/02/2024 with worsening shortness of breath on exertion with abdominal pain and melena. 1. Acute blood loss anemia suspected secondary to upper GI bleed from possible peptic ulcer disease ? Admit under inpatient status to PCU. GI consulted. Hemoglobin 5.3 on admit, previous baseline was around 15-17. Strongly suspect secondary to upper GI bleed from peptic ulcer disease in setting of chronic ibuprofen use and recent steroid burst for influenza A infection. N.p.o. at midnight with plan for upper scope tomorrow. Giving 2 units of blood, will recheck hemoglobin later tonight and again tomorrow morning and transfuse for hemoglobin less than 7. Treated with IV PPI twice daily. Monitor closely. 2. Recent influenza A infection in setting of history of COPD/asthma ? Positive for influenza A during ED visit on 10/18. Treated with steroids and Tamiflu with improvement. No wheezing on exam and stable on room air, no concern for COPD/asthma exacerbation at this time. 3. Tobacco use disorder ? Current smoker. Nicotine replacement therapy available as needed. Encouraged cessation on discharge. DVT prophylaxis: SCDs CODE STATUS: Full code, verified Expected disposition: Home, TBD Total clinical time spent by myself addressing the patient's medical issues, reviewing all the data, and collaborating with patient's care team: 55 minutes. Charges/Coding Visit Charges Inpatient E&M: 81648 Init Hosp L2
--- NOTE | 2024-11-02 18:16 | CT_ITS ---
PROCEDURE: ABDOMEN/PELVIS WITHOUT CONT 11/02/2024 REASON FOR EXAM: SUSPECTED PUD W/ ABD PAIN TECHNIQUE: Abdomen CT without and with intravenous contrast. Coronal and Sagittal reconstruction series were provided. PATIENT PREPARATION: Per protocol ORAL CONTRAST TYPE: None. AMOUNT: mL One or more dose reduction techniques were used (e.g., Automated exposure control, adjustment of the mA and/or kV according to patient size, use of iterative reconstruction technique. COMPARISON: CT abdomen and pelvis 08/29/2019 FINDINGS: Lung bases: Emphysema within the imaged lung bases ground-glass opacities within the imaged lung base, bilateral bronchial thickening, concerning for pneumonia. Liver: Normal size. No mass. Gallbladder: Collapsed. Spleen: No splenomegaly. Pancreas: Normal size without evidence of mass surrounding inflammation or ductal dilation. Adrenals: Unremarkable. Kidneys: Normal renal sizes. No hydronephrosis. Bladder: Urinary bladder is unremarkable. Reproductive Organs: No pelvic mass. Bowel: The stomach is unremarkable. No bowel dilation or wall thickening. Colonic diverticulosis without diverticulitis. Moderate colonic stool. Appendix: Normal appendix. Lymph nodes: No suspicious lymph node enlargement. Vasculature: Mild diffuse atherosclerotic calcifications are noted. Peritoneum / Retroperitoneum: No ascites or pneumoperitoneum. Bones: Degenerative changes of the spine. CT/Abdomen/Pelvis without Cont IMPRESSION: 1. No acute findings in the abdomen and pelvis. 2. Multifocal ground-glass opacities and bilateral bronchial thickening in the imaged lung base, concerning for pneumonia. 3. Colonic diverticulosis without diverticulitis. Reading Location: [facility]
[2024-11-02] MEDS: Sucralfate 1 GM Tablet PO (18:18)
[2024-11-02] MEDS: Pantoprazole Sodium 40 MG in 0.9% Normal Saline (100mL MB+) 100 ML 330 MG IV (18:19)
[2024-11-02 18:22] LABS: Troponin T High Sens 2 HR 14 ng/L (<=22)
[2024-11-02 20:41] LABS: AST(SGOT) 36 U/L (<=37); Alanine Aminotransfer ALT/SGPT 37 U/L (<=46); Albumin, Serum 2.9 g/dL (3.5-5.0); Alkaline Phosphatase 68 U/L (40-129); Bilirubin, Direct < 0.08 mg/dL (0.00-0.30); Globulin 3.1 g/dL (2.2-4.2); Total Bilirubin < 0.15 mg/dL (0.00-1.30)
[2024-11-02 20:55] LABS: Procalcitonin 0.13 ng/mL (<=0.10)
[2024-11-02] MEDS: Ondansetron 4 MG/2 ML Vial IV (21:45)
[2024-11-03] VITALS (20 sets, daily range): BP systolic 88–110; BP diastolic 50–81; PULSE 74–104; RESP 16–22; TEMP 35.9–37.2; O2SAT 94–100; BMI 24.0
[2024-11-03 00:22] LABS: Hematocrit 18.9 % (40-54); Hemoglobin 6.4 g/dL (13.0-16.5); Mean Corp Hgb Conc 33.9 g/dL (32-36); Mean Corpuscular Hgb 31.2 pg (27.0-32.0); Mean Corpuscular Volume 92.2 fL (80-94); Mean Platelet Vol. 8.3 fl (6.2-12.0); Platelet Count 500 K/mm3 (150-450); RBC Distribution Width CV 14.6 % (11.6-14.6); RBC Distribution Width SD 45.9 fl (35.1-43.9); Red Blood Count 2.05 M/mm3 (4.6-6.2)
--- NOTE | 2024-11-03 00:51 | PCM.HOSP.N ---
Hospitalist Note Repeat H&H following completion of most recent PRBC 6.4, will add an additional 2 units to be administered with repeat H&H following completion by 1 to 2 hours.
[2024-11-03] MEDS: Ondansetron 4 MG/2 ML Vial IV (05:50)
[2024-11-03] MEDS: Ipratropium/Albuterol Sulfate 3 ML AMPUL.NEB INHALATION ×2 (07:19→19:53)
--- NOTE | 2024-11-03 08:00 | PCM.PN.HOSP ---
Reason for Visit Reason for Visit: Diagnoses Acute posthemorrhagic anemia (11/02/24) Gastrointestinal hemorrhage, unspecified (11/02/24) Objective Data Objective Data Vital Signs: Vital Signs Temp Pulse Resp BP Pulse Ox O2 Del Method O2 Flow Rate 97.0 F L 83 20 H 93/63 100 Nasal Cannula 2 11/03/24 06:51 11/03/24 06:51 11/03/24 06:51 11/03/24 06:51 11/03/24 06:51 11/03/24 06:51 11/03/24 06:51 Oxygen Flow Rate (L/min) 2 Oxygen Delivery Method Nasal Cannula Weight: 177 lb 4.026 oz Body Mass Index (BMI) 24.0 Intake & Output: Intake and Output for Last 24 Hours 11/01/24 11/02/24 11/03/24 23:59 23:59 23:59 Intake Total 1976 0 / 0 Output Total 825 / 825 575 / 575 Balance 1152 / 1152 -575 / -575 Lab / Micro Data 11/03/24 09:55 11/03/24 09:55 Labs: Laboratory Results - last 24 hr 11/02/24 15:26: WBC 17.3 H, RBC 1.76 L, Hgb 5.3 L*, Hct 16.7 L, MCV 94.9 H, MCH 30.1, MCHC 31.7 L, RDW Std Deviation 49.4 H, RDW Coeff of Eliseo 15.4 H, Plt Count 696 H, MPV 8.5, Immature Gran % (Auto) 4.600 H, Neut % (Auto) 67.0, Lymph % (Auto) 20.0, Erath % (Auto) 7.3, Eos % (Auto) 0.8, Baso % (Auto) 0.3, Absolute Neuts (auto) 11.6 H, Absolute Lymphs (auto) 3.46, Nucleated RBC % 0.3, Differential Comment COMMENT, Diff Path Review December, Sodium 134, Potassium 4.2, Chloride 101, Carbon Dioxide 24.3, Anion Gap 9, BUN 15, Creatinine 0.87, Estim Creat Clear Calc 100.34, Est GFR (MDRD) Non-Af 99, BUN/Creatinine Ratio 17.5, Glucose 144 H, Lactic Acid 2.5 H*, Calcium 8.6, Troponin T High Sens 10, NT pro BNP II 361 11/02/24 15:39: Blood Type A NEGATIVE, Antibody Screen NEGATIVE, Crossmatch See Detail 11/02/24 15:39: Crossmatch See Detail 11/02/24 17:31: Total Bilirubin < 0.15, Direct Bilirubin < 0.08, AST 36, ALT 37, Alkaline Phosphatase 68, Troponin T Hi Sens 2 Hr 14, Total Protein 6.0, Albumin 2.9 L, Globulin 3.1, Procalcitonin 0.13 H 11/03/24 00:13: WBC 16.0 H, RBC 2.05 L, Hgb 6.4 L, Hct 18.9 L, MCV 92.2, MCH 31.2, MCHC 33.9 D, RDW Std Deviation 45.9 H, RDW Coeff of Eliseo 14.6, Plt Count 500 H, MPV 8.3 Micro: Microbiology 11/02/24 16:50 Stool Stool Occult Blood (CHIO) - Final Occult Blood Positive 11/02/24 15:30 Mucosa - Nose SARS-CoV-2, Influenza & RSV (PCR) - Final Radiography Diagnostic Testing: Radiology Impression Chest X-Ray 11/02/24 15:45 IMPRESSION: Bibasilar atelectasis or pneumonia. Reading Location: [facility] Abdomen/Pelvis CT 11/02/24 18:16 IMPRESSION: 1. No acute findings in the abdomen and pelvis. 2. Multifocal ground-glass opacities and bilateral bronchial thickening in the imaged lung base, concerning for pneumonia. 3. Colonic diverticulosis without diverticulitis. Reading Location: [facility] Rhythm Strip Rhythm Strip: Sinus Tach Rate: 134 Ectopy: None Physical Exam Narrative Seen and examined. Patient denies NSAIDs including ibuprofen/Motrin, diclofenac or Mobic to me. He said he had upper abdominal pain/cramping about 2 3 days ago which get better with the food. He also had black tarry stool for 2 to 3 days about 2 3 days ago. Denies acute shortness of breath or fever. BP on lower side 90/60 Physical exam General: Alert, Oriented x3, Cooperative HEENT: Atraumatic, PERRLA, EOMI, Normocephalic Oral: No Gingival or Mucosal Lesions/ Ulcerations Neck: Supple, No JVD, Negative Carotid Bruits Chest wall/Lungs: Air entry diminished in bilateral lung bases. No crepitation/rhonchi Cardiovascular: Regular rate, Regular Rhythm, Normal S1, Normal S2, No M/G/R Abdomen: Bowel Sounds Present, Soft, mild epigastric tenderness Non-Distended : No dysuria. No renal angle tenderness. No suprapubic tenderness. Extremities: No edema, Capillary Refill Less than 3 Seconds Skin: No rashes, No breakdown Musculoskeletal: No Tenderness to Palpation of Joints or Extremities Neurological: Cranial nerves II-XII grossly intact, DTR 2+/4. No acute focal neurological deficit. Psych/Mental Status: Normal Affect, Appropriate. Assessment & Plan Assessment/Plan (1) ABLA (acute blood loss anemia): (2) UGIB (upper gastrointestinal bleed): PLAN: Plan Patient is a 59-year-old male who presented to [facility] ED on 11/02/2024 with worsening shortness of breath on exertion for 2 to 3 days with abdominal pain and melena. Pulse ox was 78% on room air. Patient was also having black stool and diarrhea at home noticed it has dissolved. Mild epigastric discomfort sometimes gets worse with eating food. 1. Acute blood loss anemia suspected secondary to upper GI bleed from possible peptic ulcer disease ? Admit under inpatient status to PCU. GI consulted. Hemoglobin 5.3 on admit, previous baseline was around 15-17. Strongly suspect secondary to upper GI bleed from peptic ulcer disease in setting of chronic ibuprofen use and recent steroid burst for influenza A infection. N.p.o. at midnight with plan for upper scope tomorrow. Giving 2 units of blood, will recheck hemoglobin later tonight and again tomorrow morning and transfuse for hemoglobin less than 7. Treated with IV PPI twice daily. Monitor closely. 2. Recent influenza A infection in setting of history of COPD/asthma: Was also treated for pneumonia about 2 weeks ago as an outpatient. ? Positive for influenza A during ED visit on 10/18. Treated with steroids and Tamiflu with improvement. No wheezing on exam and stable on room air, no concern for COPD/asthma exacerbation at this time. 3. Tobacco use disorder ? Current smoker. Nicotine replacement therapy available as needed. Encouraged cessation on discharge. DVT prophylaxis: SCDs CODE STATUS: Full code, verified
[2024-11-03] MEDS: Pantoprazole Sodium 40 MG in 0.9% Normal Saline (100mL MB+) 100 ML 330 MG IV ×2 (09:57→21:08)
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
[2024-11-03 11:31] LABS: Hematocrit 24.1 % (40-54); Hemoglobin 8.2 g/dL (13.0-16.5); Mean Corpuscular Hgb 31.4 pg (27.0-32.0); Mean Corpuscular Volume 92.3 fL (80-94); Mean Platelet Vol. 8.6 fl (6.2-12.0); Platelet Count 511 K/mm3 (150-450); RBC Distribution Width CV 14.7 % (11.6-14.6); RBC Distribution Width SD 45.9 fl (35.1-43.9); Red Blood Count 2.61 M/mm3 (4.6-6.2); White Blood Count 15.8 K/mm3 (4.4-11.0)
[2024-11-03 11:41] LABS: AST(SGOT) 24 U/L (<=37); Alanine Aminotransfer ALT/SGPT 30 U/L (<=46); Albumin, Serum 2.8 g/dL (3.5-5.0); Alkaline Phosphatase 62 U/L (40-129); Anion Gap 10 (5-15); BUN 16 mg/dL (4-19); BUN/Creat Ratio 20.5 RATIO (10-20); Calcium,Total 8.2 mg/dL (7.6-11.0); Carbon Dioxide 21.9 mmol/L (21.0-32.0); Chloride 103 mmol/L (98-108); Creatinine, Serum 0.76 mg/dL (0.70-1.20); EST Glomerular Filtration Rate 104 (>60); Estimated Creatinine Clearance 114.87 ml/min (50-250); Globulin 2.9 g/dL (2.2-4.2); Glucose 115 mg/dL (70-99); Potassium 4.2 mmol/L (3.3-5.1); Protein, Total 5.7 g/dL (5.9-8.4); Sodium Level 135 mmol/L (133-145); Total Bilirubin 0.45 mg/dL (0.00-1.30)
--- NOTE | 2024-11-03 12:08 | PRE.ANES_ITS ---
ASA Classification* ASA Classification ASA Classification: 3 Assessment & Plan Anesthesia* Anesthesia Assessment Anesthesia Assessment: Discussed sedation and/or anesthesia options, risks, benefits, and alternatives with patient/parents/legal guardian/POA. Questions invited. The patient/parents/legal guardian/POA seems to understand and agrees to proceed with anesthesia plan. Reviewed the physical assessment, medical history, allergy history and patient home medications list prior to surgery/procedure/anesthetic and documented any changes. Performed airway and anesthesia risk assessments. Anesthesia Type Anesthesia Type: MAC History Source History Obtained from:: Patient and Chart Anesthesia Focused Assessment* Temperature: 98.9 F Pulse Rate: 84 Blood Pressure: 90/60 Respiratory Rate: 17 Pulse Ox: 96 Oxygen Delivery Method: Nasal Cannula Oxygen Flow Rate (L/min): 2 Airway Assessment Mouth opens: >3 cm Mallampati Score: II Teeth Condition: Loose (Patient has loose teeth numbers 24 and 25.) Neck Range of motion (ROM): Full ROM Focused Labs Anesthesia Preop lab: CBC WBC 15.8 K/mm3 (4.4-11.0) H 11/03/24 09:55 5 RBC 2.61 M/mm3 (4.6-6.2) L 11/03/24 09:55 11/03/24 Hgb 8.2 g/dL (13.0-16.5) L 11/03/24 09:55 11/03/24 Hct 24.1 % (40-54) L 11/03/24 09:55 11/03/24 Plt Count 511 K/mm3 (150-450) H 11/03/24 09:55 11/03/24 CHEMISTRY Potassium 4.2 mmol/L (3.3-5.1) 11/03/24 09:55 11/03/24 Sodium 135 mmol/L (133-145) 11/03/24 09:55 11/03/24 BUN 16 mg/dL (4-19) 11/03/24 09:55 11/03/24 Creatinine 0.76 mg/dL (0.70-1.20) 11/03/24 09:55 11/03/24 Glucose 115 mg/dL (70-99) H 11/03/24 09:55 11/03/24 POC Glucose 126 mg/dL (70-110) H 01/08/19 06:34 01/08/19 COAG Pre-Assessment Diagnosis/Proposed Procedure Planned Operative Procedure(s): Esophagogastroduodenoscopy with possible cautery and/or injection therapy. Anesthesia History Anesthesia History - compliance nurse: Anesthesia History - compliance nurse Hx Hospitalization Yes 01/21/21 13:53 Any Problems With Anesthesia Cholinesterase deficiency You/Your Family Experience fever (hyperthermia) with Relationship Recent Exposure to Contagious Disease Does patient have nerve stimulator Patient instructed to have device shut off --Does patient have Pacemaker or ICD? When Was Last Pacemaker Check QUESTION #4 FULL TEXT: You/Your Family Experience fever (hyperthermia) with Anesthesia Last Oral Intake Last Oral intake: Last Oral Intake NPO since Meds taken in AM with sips of water? Meds patient instructed to take am of surgery Any additional information?: Yes NPO since: 00:00 Meds taken in AM with sips of water?: Yes PONV PONV - compliance nurse: PONV - compliance nurse Female HX of Motion Sickness HX of N/V After Surgery Non-Smoker Duration of Surgery greater than 60 minutes Number of Risk Factors PONV Score Height & Weight Height & Weight: Anesthesia: Height & Weight Height 6 ft 11/03/24 10:18 Weight: 80.4 kg 11/03/24 10:18 Body Mass Index (BMI) 24.0 11/03/24 00:05 Respiratory Assessment Respiratory Assessment - compliance nurse: Respiratory Tract Infection Hx - compliance nurse Hx Respiratory Tract Infection Any additional information?: No STOP Sleep Apnea STOP Sleep Apnea - compliance nurse: STOP Sleep Apnea - compliance nurse Hx Hypertension No 11/02/24 19:19 Hx Sleep Apnea No 11/02/24 19:19 CPAP BIPAP Do you snore loudly (louder No 11/02/24 19:19 than talking or can be heard Do you often feel tired/ Yes 11/02/24 19:19 fatigued/ sleepy during daytime? Has anyone observed you stop No 11/02/24 19:19 breathing during sleep? STOP Results Negative 11/02/24 19:19 QUESTION #5 FULL TEXT : Do you snore loudly (louder than talking or can be heard through closed doors)? Tobacco Use History Tobacco Use History - compliance nurse: Tobacco Use History - compliance nurse Tobacco Use Smoking Status Current every day smoker 11/03/24 07:19 Hx Tobacco Use Yes 11/02/24 19:19 Years Smoking Packs Smoked per Day Smoking Cessation Date was within the last 15 years Hx Smoking Cessation Date Hx Smoking Cessation Counseling Hematologic Medial History Hematologic Hx - compliance nurse: Hematologic Medical Hx - office director Hx of Blood Transfusion Yes 11/02/24 19:19 Hx of Transfusion in last 3 Yes 11/02/24 19:19 Months Date of Last Transfusion (if 11/02/24 11/02/24 19:19 within last 3 months) Ever experience any problems No 11/02/24 19:19 with transfusion(s)? Specify any problems Hx of Preganancy in last 3 N/A 11/02/24 19:19 Months Nurse Filling Out Transfusion FSTEINER 11/02/24 19:19 & Questions: Date: 11/02/24 11/02/24 19:19 Time: 19:20 11/02/24 19:19 Patient unable to answer at this time (ie. confused, unrespo /Reproduction History /Reproductive History - compliance nurse: /Reproductive Hx- compliance nurse Hx Now Gestational Age (in weeks): EDC: Hx Hx Para Hx Section SAB Active Medications Active Medications: Current Medications Generic Name Dose Route Start Last Admin Trade Name Freq PRN Reason Stop Dose Admin Acetaminophen 650 mg 11/02/24 19:34 Acetaminophen 325 Mg Tablet PO Q6H PRN PRN Pain 1-10 Or Fever>100.7 Albuterol/Ipratropium 3 ml 11/02/24 19:34 11/03/24 07:19 Ipratropium/Albuterol Sulfate 3 Ml Ampul.Neb INHALATION 3 ml Q6HWA.RT JESSICA Administration Sodium Chloride 100 mls @ 15 mls/hr 11/02/24 19:12 IV .Q6H40M PRN Saline Flush Sodium Chloride 100 mls @ 15 mls/hr 11/02/24 19:12 IV .Q6H40M PRN Additional IVPB Infusion Pantoprazole Sodium 40 mg/ 110 mls @ 330 mls/hr 11/03/24 10:00 11/03/24 09:57 Sodium Chloride IV 330 mls/hr Q12 JESSICA Administration Melatonin 3 mg 11/02/24 19:34 Melatonin 3 Mg Tablet PO QHS PRN PRN INSOMNIA Ondansetron HCl 4 mg 11/02/24 19:34 11/03/24 05:50 Ondansetron 4 Mg/2 Ml Vial IV 4 mg Q8H PRN PRN Administration NAUSEA/VOMITING Sodium Chloride 10 - 40 ml 11/02/24 19:12 0.9% Saline Lock 10 Ml Syringe IV UD PRN SALINE FLUSH PFSH Medical History Substance abuse Anxiety Kidney stones Pancreatitis GI bleed Smoker Irregular heart beat History of intravenous drug abuse Stroke Depression History of bronchitis History of pneumonia Emphysema of lung Asthma DDD (degenerative disc disease) COPD (chronic obstructive pulmonary disease) Home Medications ?Medication ?Instructions ?Recorded ?Last Taken ?Type NK 11/02/24 Unknown History Allergy/AdvReac Type Severity Reaction Status Date / Time Food Allergies: Uncoded Allergy Unknown Throat Verified 11/03/24 10:31 swelling clindamycin Allergy Hives Verified 10/18/24 12:09 iodine Allergy Swelling Verified 10/18/24 12:09 Penicillins (PCN) AdvReac Upset Verified 10/18/24 12:09 Stomach Family History Mother Hypertension Father COPD (chronic obstructive pulmonary disease) Emphysema of lung Social History Smoking Status: Current every day smoker tobacco type: cigarettes Tobacco: How many years used: 45 Review of Systems (Anesthesia) ROS Narrative System reviewed and no additional complaints, except as documented.
--- NOTE | 2024-11-03 12:44 | PCM.PN.BLA ---
Progress Note 59-year-old male states he has been short of breath increasing for the past 2 to 3 days. States he had influenza maybe 3 weeks ago, he was at home resting and taking prescribed medications for it, then he came back because he started getting short of breath and was diagnosed with pneumonia treated as an outpatient maybe 2 weeks ago and did well but now things are getting worse again. He has some chest tightness, coughing. He states he does not have a rescue inhaler does not have a nebulizer machine to use to help him at home. Upon getting here and being placed on oxygen prior to my arrival he states is already starting to help but he is still very dyspneic. States he was having diarrhea and black stools but that is resolved. Denies any nausea or vomiting. He has mild epigastric discomfort sometimes gets worse with eating he states, he denies any melena now. Physical Exam Const alert, oriented x3, no apparent distress and healthy appearing General Appearance: cooperative GI normal to inspection, nondistended, normoactive bowel sounds, soft to palpation, non-tender and non-distended Percussion: normal to percussion Rectal Exam: deferred Assessment & Plan Assessment/Plan (1) ABLA (acute blood loss anemia): (2) UGIB (upper gastrointestinal bleed): PLAN: Plan Patient is a 59-year-old male who presented to [facility] ED on 11/02/2024 with worsening shortness of breath on exertion with abdominal pain and melena. Acute blood loss anemia suspected secondary to upper GI bleed from possible peptic ulcer disease ? Hemoglobin 5.3 on admit, previous baseline was around 15-17. Strongly suspect secondary to upper GI bleed from peptic ulcer disease in setting of chronic ibuprofen use and recent steroid burst for influenza A infection. He received 2 units of blood, will recheck hemoglobin later tonight. Treated with IV PPI twice daily. Monitor closely. He will undergo an upper endoscopy to evaluate upper GI tract. He was explained alternatives, benefits, risk include not withstanding bleeding, infection, sepsis, perforation, need emergent . He will have an ASA of 3. . Visit Charges Inpatient E&M: 70489 [facility] Hosp L3
--- NOTE | 2024-11-03 12:56 | PCM.POST.ANE ---
Anesthesia: Postop Eval I Current Vital Signs Temperature: 98.2 F Pulse Rate: 95 Blood Pressure: 100/81 Respiratory Rate: 20 Pulse Ox: 99 Oxygen Delivery Method: Nasal Cannula Oxygen Flow Rate (L/min): 2 Assessment Airway patent: Yes Spontaneous unlabored respirations: Yes Mental status: Awake nausea: No Vomiting: No Anesthesia Complication: No Fluid Hydration Crystalloid volume administer (ml): 30 Total IV fluid infused: 30 Progress Note Anesthesia document: Postop Eval 1 completed: Yes
[2024-11-03] MEDS: Epinephrine (1 mg/ml) 1 MG/ML VIAL ×3 (13:08→13:16)
[2024-11-03] MEDS: 0.9% Normal Saline (Pres. free 10 ML Vial ×3 (13:08→13:16)
--- NOTE | 2024-11-03 13:45 | OP.EGD_ITS ---
Patient Name: Skinny Gutierrez Procedure Date: 11/03/2024 12:49 PM Date of : 1965 Age: 59 Procedure: Upper GI endoscopy Indications: Acute post hemorrhagic anemia, Melena Providers: Raul Caba DO Medicines: Monitored Anesthesia Care Patient Profile: This is a 59 year old male. Refer to note in patient chart for documentation of history and physical. Patient has symptoms of acute epigastric abdominal pain. Complications: No immediate complications. Procedure: Pre-Anesthesia Assessment: - Prior to the procedure, a History and Physical was performed, and patient medications and allergies were reviewed. The patient is competent. The risks and benefits of the procedure and the sedation options and risks were discussed with the patient. All questions were answered and informed consent was obtained. Patient identification and proposed procedure were verified by the physician in the pre-procedure area. Mental Status Examination: alert and oriented. Airway Examination: normal oropharyngeal airway and neck mobility. Respiratory Examination: clear to auscultation. CV Examination: normal. Prophylactic Antibiotics: The patient does not require prophylactic antibiotics. Prior Anticoagulants: The patient has taken no anticoagulant or antiplatelet agents except for NSAID medication. ASA Grade Assessment: II - A patient with mild systemic disease. After reviewing the risks and benefits, the patient was deemed in satisfactory condition to undergo the procedure. The anesthesia plan was to use monitored anesthesia care (MAC). Immediately prior to administration of medications, the patient was re-assessed for adequacy to receive sedatives. The heart rate, respiratory rate, oxygen saturations, blood pressure, adequacy of pulmonary ventilation, and response to care were monitored throughout the procedure. The physical status of the patient was re-assessed after the procedure. After obtaining informed consent, the endoscope was passed under direct vision. Throughout the procedure, the patient's blood pressure, pulse, and oxygen saturations were monitored continuously. The Endoscope was introduced through the mouth, and advanced to the second part of duodenum. The upper GI endoscopy was accomplished without difficulty. The patient tolerated the procedure well. Scope In: 1:00:43 PM Scope Out: 1:31:59 PM Total Procedure Duration Time 0 hours 31 minutes 16 seconds Findings: No gross lesions were noted in the entire esophagus. A medium-sized hiatal hernia was present. One spurting cratered duodenal ulcer with a visible vessel was found in the duodenal bulb, in the first portion of the duodenum and in the second portion of the duodenum. The lesion was twenty mm by twenty mm in largest dimension. Area was successfully injected with 20 mL of a 0.1 mg/mL solution of epinephrine for drug delivery. Coagulation for hemostasis using heater probe was successful. To stop active bleeding, four hemostatic clips were successfully placed. Clip conservator artifacts: [employer]. There was no bleeding at the end of the procedure. Impression: - No gross lesions in the entire esophagus. - Medium-sized hiatal hernia. - Spurting duodenal ulcer with a visible vessel. Injected. Treated with a heater probe. Clips were placed. Clip conservator artifacts: [place] AM[employer]. - No specimens collected. Recommendation: - Discharge patient to home. - Full liquid diet today. - Continue present medications. Procedure Code(s): --- Professional --- 22311, Esophagogastroduodenoscopy, flexible, transoral; with control of bleeding, any method 90163, 59,51, Esophagogastroduodenoscopy, flexible, transoral; with directed submucosal injection(s), any substance CPT copyright 2021 [employer]. All rights reserved. The codes documented in this report are preliminary and upon computer methods analyst review may be revised to meet current compliance requirements. Raul Caba DO 11/03/2024 1:44:24 PM This report has been signed electronically. Number of Addenda: 0 Note Initiated On: 11/03/2024 12:49 PM
--- NOTE | 2024-11-03 13:45 | OP.CCLET_ITS ---
11/03/2024 Lissett Moe [facility] Re : Upper GI endoscopy procedure for Skinny Gutierrez Dear [facility] This procedure was performed on Sunday, November 03, 2024. My impressions and recommendations are as follows: Impressions : - No gross lesions in the entire esophagus. - Medium-sized hiatal hernia. - Spurting duodenal ulcer with a visible vessel. Injected. Treated with a heater probe. Clips were placed. 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 - No specimens collected. Recommendations : - Discharge patient to home. - Full liquid diet today. - Continue present medications. My findings are described in the full procedure note, which is enclosed. If I can be of further assistance, please feel free to contact me at . Sincerely, Raul Friend, 11/03/2024 1:44:24 PM This report has been signed electronically.
[2024-11-03] MEDS: Phytonadione (Vit K) 10 MG/ML Ampul 5 MG IM (13:53)
--- NOTE | 2024-11-03 14:20 | POSTOPAN2_ITS ---
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 Spontaneous unlabored Yes 11/03/24 13:41 UNLOAD [email or web address] respirations Mental status Awake 11/03/24 13:41 UNLOAD [email or web address] nausea No 11/03/24 13:41 UNLOAD [email or web address] Vomiting No 11/03/24 13:41 UNLOAD [email or web address] Anesthesia Postop Eval I: Fluid Summary Crystalloid volume administer 30 11/03/24 13:41 UNLOAD [email or web address] (ml) Colloids volume administered ( ml) Blood Product volume administered (ml) Total IV fluid infused 30 11/03/24 13:41 UNLOAD [email or web address] Anesthesia Postop Eval I: Summary Notes Anesthesia Complication No 11/03/24 13:41 UNLOAD [email or web address] Anesthesia Complication Comment: Post-operative progress note Anesthesia: Postop Eval II Evaluation Mental status: Awake Pain Level: 0 nausea: No Vomiting: No
--- NOTE | 2024-11-03 14:20 | PCM.POSTANE2 ---
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 respirations Mental status Awake 11/03/24 13:41 PLANNING DIVISION [email or web address] nausea No 11/03/24 13:41 PLANNING DIVISION [email or web address] Vomiting No 11/03/24 13:41 PLANNING DIVISION [email or web address] Anesthesia Postop Eval I: Fluid Summary Crystalloid volume administer 30 11/03/24 13:41 PLANNING DIVISION [email or web address] (ml) Colloids volume administered ( ml) Blood Product volume administered (ml) Total IV fluid infused 30 11/03/24 13:41 PLANNING DIVISION [email or web address] Anesthesia Postop Eval I: Summary Notes Anesthesia Complication No 11/03/24 13:41 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
[2024-11-03] MEDS: Lactated Ringers 1,000 ML 150 ML IV (14:34)
--- NOTE | 2024-11-03 14:54 | CHAPLAIN ---
Type of Pastoral Visit _x__ Initial Visit ___ Follow-up Visit ___ On-call Visit ___ General Patient Visit ___ Spiritual Assessment ___ Family Conference ___ Bereavement ___ Rapid Response ___ Code Blue ___ Other (describe below) Pastoral Care Referral From _x__ Patient ___ Family ___ Nurse ___ Physician ___ Heavy Truck Driver ___ Barker Operator ___ Other (describe below) Sacrament/Intervention _x__ Active listening ___ Anointing ___ Rastafarian ___ Bereavement ___ Communion ___ Yanelis exploration ___ ___ Life review _x__ Prayer ___ Reconciliation ___ Sacrament of Sick ___ Supportive presence ___ Wedding ___ Other (describe below) Pastoral Comments patient just recently returned to the room from a procedure; pt is focused on getting something to eat and repeats this statement several times; pt is asked about his condition, needs, or worries, but he states that he has none other than getting to eat again; pt does request a prayer for his support
[2024-11-03] MEDS: 0.9% Saline Lock 10 ML Syringe IV (21:09)
[2024-11-03] MEDS: MELATONIN 3 MG TABLET PO (21:11)
[2024-11-04] VITALS (7 sets, daily range): BP systolic 90–119; BP diastolic 57–95; PULSE 87–105; RESP 16–20; TEMP 35.8–36.6; O2SAT 91–98
[2024-11-04] MEDS: Ipratropium/Albuterol Sulfate 3 ML AMPUL.NEB INHALATION ×2 (06:57→21:11)
--- NOTE | 2024-11-04 07:59 | PN.HOSP_ITS ---
Reason for Visit Reason for Visit: Diagnoses Acute posthemorrhagic anemia (11/02/24) Gastrointestinal hemorrhage, unspecified (11/02/24) Objective Data Objective Data Vital Signs: Vital Signs Temp Pulse Resp BP Pulse Ox O2 Del Method O2 Flow Rate 96.5 F L 87 18 90/57 L 94 Room Air 2 11/04/24 03:13 11/04/24 03:13 11/04/24 03:13 11/04/24 03:13 11/04/24 03:13 11/04/24 03:13 11/03/24 19:52 Oxygen Flow Rate (L/min) 2 Oxygen Delivery Method Room Air Weight: 177 lb 4.026 oz Body Mass Index (BMI) 24.0 Intake & Output: Intake and Output for Last 24 Hours 11/02/24 11/03/24 11/04/24 23:59 23:59 23:59 Intake Total 1976 1460 / 1460 Output Total 825 / 825 2600 / 4825 2450 / 2450 Balance 1152 / 1152 -1140 / -3365 -2450 / -2450 Lab / Micro Data 11/04/24 08:00 11/04/24 08:00 Labs: Laboratory Results - last 24 hr 11/02/24 15:39: Crossmatch See Detail 11/03/24 09:55: WBC 15.8 H, RBC 2.61 L, Hgb 8.2 L 11/03/24 09:55: Hgb Cancelled, Hct 24.1 L 11/03/24 09:55: Hct Cancelled, MCV 92.3, MCH 31.4, MCHC 34.0, RDW Std Deviation 45.9 H, RDW Coeff of Eliseo 14.7 H, Plt Count 511 H, MPV 8.6, Diff Path Review Cancelled, Sodium 135, Potassium 4.2, Chloride 103, Carbon Dioxide 21.9, Anion Gap 10, BUN 16, Creatinine 0.76, Estim Creat Clear Calc 114.87, Est GFR (MDRD) Non-Af 104, BUN/Creatinine Ratio 20.5 H, Glucose 115 H, Calcium 8.2, Total Bilirubin 0.45, AST 24, ALT 30, Alkaline Phosphatase 62, Total Protein 5.7 L, A lbumin 2.8 L, Globulin 2.9, Albumin/Globulin Ratio 1.0 Micro: Microbiology 11/02/24 16:50 Stool Stool Occult Blood ([facility]) - Final Occult Blood Positive 11/02/24 15:30 Mucosa - Nose SARS-CoV-2, Influenza & RSV (PCR) - Final Rhythm Strip Rhythm Strip: Sinus Tach Rate: 134 Ectopy: None Physical Exam Narrative Seen and examined. Patient felt dizzy about 12:30 PM. Numbness in the back of his legs. Vitals are good. No hypotension. Ortho vitals were also negative. EGD found spurting duodenal arterial bleed. Patient denies NSAIDs including ibuprofen/Motrin, diclofenac or Mobic to me. He said he had upper abdominal pain/cramping about 2 3 days ago which get better with the food. He also had black tarry stool for 2 to 3 days about 2 3 days ago. Denies acute shortness of breath or fever. BP on lower side 90/60 Physical exam General: Alert, Oriented x3, Cooperative HEENT: Atraumatic, PERRLA, EOMI, Normocephalic Oral: No Gingival or Mucosal Lesions/ Ulcerations Neck: Supple, No JVD, Negative Carotid Bruits Chest wall/Lungs: Air entry diminished in bilateral lung bases. No crepitation/rhonchi Cardiovascular: Regular rate, Regular Rhythm, Normal S1, Normal S2, No M/G/R Abdomen: Bowel Sounds Present, Soft, mild epigastric tenderness Non-Distended : No dysuria. No renal angle tenderness. No suprapubic tenderness. Extremities: No edema, Capillary Refill Less than 3 Seconds Skin: No rashes, No breakdown Musculoskeletal: No Tenderness to Palpation of Joints or Extremities Neurological: Cranial nerves II-XII grossly intact, DTR 2+/4. No acute focal neurological deficit. Psych/Mental Status: Anxious, dizziness Assessment & Plan Assessment/Plan (1) ABLA (acute blood loss anemia): (2) UGIB (upper gastrointestinal bleed): PLAN: Plan Patient is a 59-year-old male who presented to [facility] ED on 11/02/2024 with worsening shortness of breath on exertion for 2 to 3 days with abdominal pain and melena. Pulse ox was 78% on room air. Patient was also having black stool and diarrhea at home noticed it has dissolved. Mild epigastric discomfort sometimes gets worse with eating food. 1. Acute blood loss anemia suspected secondary to upper GI bleed from possible peptic ulcer disease ? Admit under inpatient status to PCU. GI consulted. Hemoglobin 5.3 on admit, previous baseline was around 15-17. Strongly suspect secondary to upper GI bleed from peptic ulcer disease in setting of chronic ibuprofen use and recent steroid burst for influenza A infection. N.p.o. at midnight with plan for upper scope tomorrow. Patient received total 4 units of PRBC transferred treated with IV PPI twice daily. Monitor closely. EGD on 11/03/2024 Impressions : - No gross lesions in the entire esophagus. - Medium-sized hiatal hernia. - Spurting duodenal ulcer with a visible vessel. Injected. Treated with a heater probe. Clips were placed. 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 - No specimens collected. 11/04: Continue IV PPI. Soft diet today 2. Recent influenza A infection in setting of history of COPD/asthma: Was also treated for pneumonia about 2 weeks ago as an outpatient. ? Positive for influenza A during ED visit on 10/18. Treated with steroids and Tamiflu with improvement. No wheezing on exam and stable on room air, no concern for COPD/asthma exacerbation at this time. 3. Tobacco use disorder ? Current smoker. Nicotine replacement therapy available as needed. Encouraged cessation on discharge. DVT prophylaxis: SCDs CODE STATUS: Full code, verified Charges/Coding Visit Charges Inpatient E&M: 46429 Subs Hosp L2
[2024-11-04 08:12] LABS: Absolute Lymphocyte Count 1.95 X10^3/uL (0.83-4.51); Absolute Neutrophil Count 6.2 X10^3/uL (2.0-7.7); Basophil# 0.05 X10^3/uL; Basophil% 0.6 % (0-1); Eosinophil# 0.07 X10^3/uL; Eosinophils% 0.8 % (0-5); Hematocrit 25.8 % (40-54); Hemoglobin 8.5 g/dL (13.0-16.5); Lymphocyte # 1.95 X10^3/ul (0.83-4.51); Lymphocyte % 21.5 % (19-41); Mean Corp Hgb Conc 32.9 g/dL (32-36); Mean Corpuscular Hgb 30.2 pg (27.0-32.0); Mean Corpuscular Volume 91.8 fL (80-94); Mean Platelet Vol. 8.2 fl (6.2-12.0); Monocyte# 0.65 X10^3/uL; Monocyte% 7.2 % (0-10); NRBC Flagged by Analyzer 0 % (0-5); Neutrophil # 6.17 X10^3/uL (2.7-7.7); Neutrophil % 67.7 % (47-70); Platelet Count 466 K/mm3 (150-450); RBC Distribution Width CV 15.9 % (11.6-14.6); RBC Distribution Width SD 49.9 fl (35.1-43.9); Red Blood Count 2.81 M/mm3 (4.6-6.2); White Blood Count 9.1 K/mm3 (4.4-11.0)
[2024-11-04 08:38] LABS: AST(SGOT) 27 U/L (<=37); Alanine Aminotransfer ALT/SGPT 33 U/L (<=46); Albumin, Serum 2.7 g/dL (3.5-5.0); Alkaline Phosphatase 62 U/L (40-129); Anion Gap 9 (5-15); BUN 12 mg/dL (4-19); BUN/Creat Ratio 13.3 RATIO (10-20); Calcium,Total 8.2 mg/dL (7.6-11.0); Carbon Dioxide 24.4 mmol/L (21.0-32.0); Chloride 103 mmol/L (98-108); Creatinine, Serum 0.92 mg/dL (0.70-1.20); EST Glomerular Filtration Rate 95 (>60); Estimated Creatinine Clearance 94.89 ml/min (50-250); Globulin 2.9 g/dL (2.2-4.2); Glucose 87 mg/dL (70-99); Potassium 4.4 mmol/L (3.3-5.1); Protein, Total 5.6 g/dL (5.9-8.4); Sodium Level 137 mmol/L (133-145); Total Bilirubin 0.44 mg/dL (0.00-1.30)
[2024-11-04] MEDS: Pantoprazole Sodium 40 MG in 0.9% Normal Saline (100mL MB+) 100 ML 330 MG IV ×2 (08:44→22:16)
--- NOTE | 2024-11-04 12:37 | CT_ITS ---
PROCEDURE: BRAIN/HEAD WITHOUT CONTRAST (CTBR), 11/04/2024 REASON FOR EXAM: DIZZINESS COMPARISON: 10/12/2018 none. MRI dated and prior could not be retrieved at the time of dictation. TECHNIQUE: CT head was performed without IV contrast. Multiplanar reformats were generated. RADIATION DOSE SUMMARY: CTDlvol: 47.06 mGy DLP: 855.03 mGycm One or more dose reduction techniques were used (e.g., Automated exposure control, adjustment of the mA and/or kV according to patient size, use of iterative reconstruction technique). FINDINGS: Cerebrum: No definite acute territorial infarct, mass, or visible intracranial hemorrhage. Mild volume loss. Cerebellum/brainstem: Unremarkable. Note slight limitation due to beam hardening artifact. Ventricles/extra-axial spaces: Mild ventriculomegaly, proportionate to volume loss. Paranasal sinuses/mastoid air cells: Unremarkable. Scalp/calvarium: Unremarkable. Other: Intracranial atherosclerosis. CT/Brain/Head without Contrast IMPRESSION: 1. No visible acute intracranial findings. If there is persistent concern for a n acute intracranial process, consider MRI. 2. Additional description as above. Reading Location: [id number]
[2024-11-04] MEDS: ALPRAZolam 0.25 MG Tablet PO ×2 (13:35→22:16)
[2024-11-04 14:26] LABS: Bedside Glucose 156 mg/dL (74-106)
[2024-11-04 17:38] LABS: Magnesium 2.1 mg/dL (1.5-2.2); Phosphorus 3.3 mg/dL (2.7-4.5)
[2024-11-04] MEDS: 0.9% Saline Lock 10 ML Syringe IV (22:16)
[2024-11-05 03:53] VITALS: BP 114/76; PULSE 100; RESP 18; TEMP 36.5; O2SAT 95
[2024-11-05 05:59] LABS: Absolute Neutrophil Count 5.3 X10^3/uL (2.0-7.7); Basophil# 0.06 X10^3/uL; Basophil% 0.7 % (0-1); Eosinophil# 0.14 X10^3/uL; Eosinophils% 1.7 % (0-5); Hematocrit 28.1 % (40-54); Hemoglobin 9.2 g/dL (13.0-16.5); Lymphocyte % 23.9 % (19-41); Mean Corp Hgb Conc 32.7 g/dL (32-36); Mean Corpuscular Hgb 30.7 pg (27.0-32.0); Mean Corpuscular Volume 93.7 fL (80-94); Mean Platelet Vol. 8.3 fl (6.2-12.0); Monocyte# 0.73 X10^3/uL; Monocyte% 8.7 % (0-10); NRBC Flagged by Analyzer 0.2 % (0-5); Neutrophil # 5.28 X10^3/uL (2.7-7.7); Neutrophil % 63.2 % (47-70); Platelet Count 475 K/mm3 (150-450); RBC Distribution Width CV 15.4 % (11.6-14.6); White Blood Count 8.4 K/mm3 (4.4-11.0)
[2024-11-05 06:35] LABS: Anion Gap 11 (5-15); BUN 13 mg/dL (4-19); BUN/Creat Ratio 13.3 RATIO (10-20); Calcium,Total 8.3 mg/dL (7.6-11.0); Carbon Dioxide 24.4 mmol/L (21.0-32.0); Chloride 100 mmol/L (98-108); Creatinine, Serum 0.97 mg/dL (0.70-1.20); EST Glomerular Filtration Rate 90 (>60); Glucose 90 mg/dL (70-99); Potassium 4.5 mmol/L (3.3-5.1); Sodium Level 135 mmol/L (133-145)
[2024-11-05 07:01] VITALS: PULSE 106; RESP 18; O2SAT 94
[2024-11-05] MEDS: Ipratropium/Albuterol Sulfate 3 ML AMPUL.NEB INHALATION (07:01)
[2024-11-05 08:33] VITALS: BP 127/80; PULSE 109; RESP 22; TEMP 37.2; O2SAT 95
[2024-11-05] MEDS: Pantoprazole Sodium 40 MG in 0.9% Normal Saline (100mL MB+) 100 ML 330 MG IV (08:37)
--- NOTE | 2024-11-05 10:25 | PCM.DC ---
Discharge Instructions DC O2, CPAP, BIPAP needs Home O2 Discharge instructions: No Follow Up Care Test Results: Test results from this visit will be discussed in further detail at your follow-up appointment, if applicable. Discharge Plan Admission Admit Date/Time: 11/02/24 17:45 Primary Reason for Your Visit: Acute upper GI bleed, spurting duodenal ulcer Attending Provider: Anuel Choi [facility] Providers: Tano Macedo Discharge Orders/Prescriptions Prescriptions: New pantoprazole [Protonix] 40 mg tablet,delayed release (DR/EC) 40 mg PO BID 30 Days Qty: 60 2RF buspirone 10 mg tablet 10 mg PO BID 30 Days Qty: 60 0RF ferrous sulfate [FeroSul] 325 mg (65 mg iron) tablet 325 mg PO DAILY 30 Days Qty: 30 2RF ascorbic acid (vitamin C) 500 mg tablet 500 mg PO BID Qty: 60 2RF Referrals / Follow Up: Madonna Cox PA [Med Staff - Adv Practice Prof] - [facility] - 11/10/24 11:30 am Disposition Disposition (needs filled in before D/C Order can be placed): Home, Self Care
--- NOTE | 2024-11-05 10:28 | DS.PCM_ITS ---
Providers Date of Admission: 11/02/24 Date of Discharge: 11/05/24 Primary Care Physician: [facility] Consultations 11/02/24 19:34 Consult: Gastroenterology Routine Consulting Provider: [facility] Reason for Consult: ABLA suspected due to UGIB EMERGENT Consult: No Notified: Yes Date Notified: 11/03/24 Time Notified: 07:55 Method of Notification: Text Reason For Visit: ABLA SUSPECTED DUE TO UGIB Diagnosis Discharge Diagnosis (1) ABLA (acute blood loss anemia): Status: Acute Code(s): D62 - Acute posthemorrhagic anemia (2) UGIB (upper gastrointestinal bleed): Status: Acute Code(s): K92.2 - Gastrointestinal hemorrhage, unspecified Plan Patient is a 59-year-old male who presented to [facility] ED on 11/02/2024 with worsening shortness of breath on exertion for 2 to 3 days with abdominal pain and melena. Pulse ox was 78% on room air. Patient was also having black stool and diarrhea at home noticed it has dissolved. Mild epigastric discomfort sometimes gets worse with eating food. 1. Acute blood loss anemia suspected secondary to upper GI bleed from possible peptic ulcer disease ? Admit under inpatient status to PCU. GI consulted. Hemoglobin 5.3 on admit, previous baseline was around 15-17. Strongly suspect secondary to upper GI bleed from peptic ulcer disease in setting of chronic ibuprofen use and recent steroid burst for influenza A infection. N.p.o. at midnight with plan for upper scope tomorrow. Patient received total 4 units of PRBC transferred treated with IV PPI twice daily. Monitor closely. EGD on 11/03/2024 Impressions : - No gross lesions in the entire esophagus. - Medium-sized hiatal hernia. - Spurting duodenal ulcer with a visible vessel. Injected. Treated with a heater probe. Clips were placed. 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 - No specimens collected. 11/04: Continue IV PPI. Soft diet today 04/07: Prescription given for pantoprazole, ferrous sulfate and ascorbic acid. 2. Recent influenza A infection in setting of history of COPD/asthma: Was also treated for pneumonia about 2 weeks ago as an outpatient. ? Positive for influenza A during ED visit on 10/18. Treated with steroids and Tamiflu with improvement. No wheezing on exam and stable on room air, no concern for COPD/asthma exacerbation at this time. 3. Tobacco use disorder ? Current smoker. Nicotine replacement therapy available as needed. Encouraged cessation on discharge. , Patient also has significant anxiety and required Xanax yesterday. 4. Anxiety/panic attack: Patient is today complaining of numbness in legs, feeling dizzy and uneasiness could not describe well. CT head was done was negative for acute intracranial abnormality. He also felt like suffocating sensation and remeasurement was panic attack. Patient got better with the Xanax. Discharged on BuSpar. Advised follow with PCP DVT prophylaxis: SCDs CODE STATUS: Full code, verified Medications at Discharge Home Medications ascorbic acid (vitamin C) 500 mg tablet 500 mg PO BID #60 tabs 11/05/24 buspirone 10 mg tablet 10 mg PO BID 1 month #60 tabs 11/05/24 ferrous sulfate 325 mg (65 mg iron) tablet (FeroSul) 325 mg PO DAILY 30 days #30 tabs 11/05/24 pantoprazole 40 mg tablet,delayed release (Protonix) 40 mg PO BID 30 days #60 tabs 11/05/24 Physical Exam Narrative Seen and examined. Yesterday dizziness got better. He is feeling much better. EGD found spurting duodenal arterial bleed. Blood pressure are in normal range heart rate low 100s Physical exam General: Alert, Oriented x3, Cooperative HEENT: Atraumatic, PERRLA, EOMI, Normocephalic Oral: No Gingival or Mucosal Lesions/ Ulcerations Neck: Supple, No JVD, Negative Carotid Bruits Chest wall/Lungs: Air entry diminished in bilateral lung bases. No crepitation/rhonchi Cardiovascular: Regular rate, Regular Rhythm, Normal S1, Normal S2, No M/G/R Abdomen: Bowel Sounds Present, Soft, mild epigastric tenderness Non-Distended : No dysuria. No renal angle tenderness. No suprapubic tenderness. Extremities: No edema, Capillary Refill Less than 3 Seconds Skin: No rashes, No breakdown Musculoskeletal: No Tenderness to Palpation of Joints or Extremities Neurological: Cranial nerves II-XII grossly intact, DTR 2+/4. No acute focal neurological deficit. Psych/Mental Status: Flat affect Weight / BMI Weight Weight: 177 lb 4.026 oz Body Mass Index (BMI) 24.0 ABG / Lab / Microbiology Data 11/05/24 05:11 11/05/24 05:11 Laboratory: Laboratory Results - last 24 hr 11/04/24 08:00: Phosphorus 3.3, Magnesium 2.1 11/04/24 13:59: POC Glucose 156 H 11/05/24 05:11: WBC 8.4, RBC 3.00 L, Hgb 9.2 L, Hct 28.1 L, MCV 93.7, MCH 30.7, MCHC 32.7, RDW Std Deviation 49.0 H, RDW Coeff of Eliseo 15.4 H, Plt Count 475 H, MPV 8.3, Immature Gran % (Auto) 1.800 H, Neut % (Auto) 63.2, Lymph % (Auto) 23.9, Culberson % (Auto) 8.7, Eos % (Auto) 1.7, Baso % (Auto) 0.7, Absolute Neuts (auto) 5.3, Absolute Lymphs (auto) 2.00, Nucleated RBC % 0.2, Sodium 135, Potassium 4.5, Chloride 100, Carbon Dioxide 24.4, Anion Gap 11, BUN 13, Creatinine 0.97, Estim Creat Clear Calc 90.00, Est GFR (MDRD) Non-Af 90, BUN/Creatinine Ratio 13.3, Glucose 90, Calcium 8.3 Microbiology: Microbiology 11/02/24 16:50 Stool Stool Occult Blood (CHIO) - Final Occult Blood Positive 11/02/24 15:30 Mucosa - Nose SARS-CoV-2, Influenza & RSV (PCR) - Final Radiography Diagnostic Testing: Radiology Impression Brain CT 11/04/24 12:37 IMPRESSION: 1. No visible acute intracranial findings. If there is persistent concern for an acute intracranial process, consider MRI. 2. Additional description as above. Reading Location: [id number] D/C Instructions Discharge Diet: Light diet - advance as tolerated (Soft and bite sized food for next 4 days) Discharge Activity: Return to Normal Activity Weight Bearing Status: Weight bearing as tolerated Call your doctor if you observe: Fever of 101 or Higher, Coldness, Increased Pain, Numbness or Tingling, Change in Color, Inability to urinate, Inability to have a bowel movement, Shortness of breath, Dizziness, Fainting spells, Swelling in the ankles, Chest pain, Prolonged hiccupping, Increased palpitations (irregular heartbeat) and Calf discomfort DC O2, CPAP, BIPAP Needs Home O2 Discharge instructions: No When: IN 2 WEEKS Meaningful Use Info Meaningful Use Meaningful Use Diagnoses (Choose all that apply): None applicable Ischemic Stroke Statin Dosing Therapy Reference: STATIN DOSE THERAPY REFERENCE: * Patients > 75 years receive moderate or high dose statin therapy. * Patients 75 years or YOUNGER should receive HIGH intensity statin dose unless contraindicated. You will be required to document reason for non-treatment if statin daily dose does not meet guidelines. HIGH DOSE STATIN THERAPY DAILY Atorvastatin > than or = to 40 mg Rosuvastatin > than or = to 20 mg Amlodipine + Atorvastatin > than or = to 2.5/40 mg Ezetimibe + Simvastatin 10/80 mg Simvastatin 80mg Discharge Plan Admission Admit Date/Time: 11/02/24 17:45 Primary Reason for Your Visit: Acute upper GI bleed, spurting duodenal ulcer Attending Provider: Anuel Choi [facility] Providers: Tano Macedo Discharge Orders/Prescriptions Prescriptions: New pantoprazole [Protonix] 40 mg tablet,delayed release (DR/EC) 40 mg PO BID 30 Days Qty: 60 2RF buspirone 10 mg tablet 10 mg PO BID 30 Days Qty: 60 0RF ferrous sulfate [FeroSul] 325 mg (65 mg iron) tablet 325 mg PO DAILY 30 Days Qty: 30 2RF ascorbic acid (vitamin C) 500 mg tablet 500 mg PO BID Qty: 60 2RF Referrals / Follow Up: Madonna Cox PA [Med Staff - Adv Practice Prof] - [facility] Month [facility] - 11/10/24 11:30 am Disposition Disposition (needs filled in before D/C Order can be placed): Home, Self Care Charges/Coding Visit Charges Inpatient E&M: 29174 Disch Hosp >30min
--- NOTE | 2024-11-05 10:52 | CASEMGMT ---
Patient has order for discharge. COLE MADRID in to discuss needs at discharge. Patient states he needs transport home, COLE MADRID to inquire if [facility] is available. Patient denies needs or help at discharge. Patient had no further questions or concerns. COLE MADRID updated community action worker to request [facility].
--- NOTE | 2024-11-05 11:17 | PHA.DC.MC.R ---
Pharmacy [facility] has performed discharge medication reconciliation and counseling for this patient. 1. ASCORBIC ACID 500MG PO BID 2. BUSPIRONE 10MG PO BID 3. FERROUS SULFATE 325MG PO DAILY 4. PANTOPRAZOLE 40MG PO BID The patient's discharge medication list was reviewed for discrepancies and discrepancies were resolved. The patient was counseled on the following discharge medications and changes in medications for homegoing were reviewed. The Reason for Use, instructions for use, and potential side effects were reviewed for all new medications. The patient's questions regarding all of their medications were answered. The patient was able to verbally demonstrate an understanding of their discharge medications. Medications at Discharge Home Medications ascorbic acid (vitamin C) 500 mg tablet 500 mg PO BID #60 tabs 11/05/24 buspirone 10 mg tablet 10 mg PO BID 1 month #60 tabs 11/05/24 ferrous sulfate 325 mg (65 mg iron) tablet (FeroSul) 325 mg PO DAILY 30 days #30 tabs 11/05/24 pantoprazole 40 mg tablet,delayed release (Protonix) 40 mg PO BID 30 days #60 tabs 25
== END 2024-11-05 11:10 | disposition home or self-care (01) | DRG 241 ==
LOC: ED 16:14 → PCU 18:58
PROVIDERS: Internal Medicine Gastroenterology; Admitting Provider Hospitalist; Emergency Provider Emergency Medicine; Visit Provider Internal Medicine
PROC: 0DJ08ZZ Inspection of Upper Intestinal Tract, Via Natural or Artificial Opening Endoscopic (ICD-10-PCS; CPT 43235; principal; 2024-11-03 12:40)
DX: K27.4 Chronic or unspecified peptic ulcer, site unspecified, with hemorrhage (principal); F17.210 Nicotine dependence, cigarettes, uncomplicated; J44.9 Chronic obstructive pulmonary disease, unspecified; D62 Acute posthemorrhagic anemia; K44.9 Diaphragmatic hernia without obstruction or gangrene; F41.0 Panic disorder [episodic paroxysmal anxiety]; Z86.73 Personal history of transient ischemic attack (TIA), and cerebral infarction without residual deficits
CPT/HCPCS: 36415; 70450; 71045; 74176; 80048; 80053; 80076; 82274; 82962; 83605; 83735; 83880; 84100; 84145; 84484; 85025; 85027; 86644; 86850; 86900; 86901; 86920; 86922; 87631; 93005; 94640; 94668; 97802; 99285; 99406; P9016; A4216; J0696; J2405

== ENCOUNTER → 2024-11-10 | Outpatient (CLI) | payer MEDICAID, SELFPAY ==
[2024-11-10 12:51] LABS: Absolute Lymphocyte Count 1.71 X10^3/uL (0.83-4.51); Absolute Neutrophil Count 6.5 X10^3/uL (2.0-7.7); Eosinophil# 0.32 X10^3/uL; Eosinophils% 3.3 % (0-5); Hematocrit 33.5 % (40-54); Hemoglobin 11.1 g/dL (13.0-16.5); Lymphocyte # 1.71 X10^3/ul (0.83-4.51); Lymphocyte % 17.5 % (19-41); Mean Corp Hgb Conc 33.1 g/dL (32-36); Mean Corpuscular Hgb 32.6 pg (27.0-32.0); Mean Corpuscular Volume 98.2 fL (80-94); Mean Platelet Vol. 8.4 fl (6.2-12.0); Monocyte# 0.91 X10^3/uL; Monocyte% 9.3 % (0-10); NRBC Flagged by Analyzer 0 % (0-5); Neutrophil # 6.51 X10^3/uL (2.7-7.7); Neutrophil % 66.4 % (47-70); Platelet Count 481 K/mm3 (150-450); RBC Distribution Width SD 52.9 fl (35.1-43.9); Red Blood Count 3.41 M/mm3 (4.6-6.2); White Blood Count 9.8 K/mm3 (4.4-11.0)
[2024-11-10 13:52] LABS: ALB/GLOB Ratio 0.9 RATIO (0.9-2.4); AST(SGOT) 25 U/L (<=37); Alanine Aminotransfer ALT/SGPT 24 U/L (<=46); Albumin, Serum 3.4 g/dL (3.5-5.0); Alkaline Phosphatase 96 U/L (40-129); Anion Gap 10 (5-15); BUN 16 mg/dL (4-19); BUN/Creat Ratio 18.8 RATIO (10-20); Carbon Dioxide 24.3 mmol/L (21.0-32.0); Chloride 102 mmol/L (98-108); Creatinine, Serum 0.85 mg/dL (0.70-1.20); EST Glomerular Filtration Rate 100 (>60); Globulin 3.7 g/dL (2.2-4.2); Glucose 159 mg/dL (70-99); Potassium 4.3 mmol/L (3.3-5.1); Protein, Total 7.1 g/dL (5.9-8.4); Sodium Level 136 mmol/L (133-145); Total Bilirubin 0.25 mg/dL (0.00-1.30)
== END | disposition home or self-care (01) ==
LOC: VSLAB 12:24
PROVIDERS: PCP Nurse Practitioner Family
DX: D64.9 Anemia, unspecified (principal); Z13.6 Encounter for screening for cardiovascular disorders
CPT/HCPCS: 36415; 80053; 84443; 85025

== ENCOUNTER 2025-01-15 07:14 | Emergency (ER) | payer MEDICAID, SELFPAY ==
[2025-01-15 07:15] VITALS: BP 167/98; PULSE 114; RESP 18; TEMP 36.8; O2SAT 99; BMI 24.7
--- NOTE | 2025-01-15 07:31 | EKG12_ITS ---
Test Reason : GENERAL Blood Pressure : */* mmHG Vent. Rate : 100 BPM Atrial Rate : 100 BPM P-R Int : 134 ms QRS Dur : 90 ms QT Int : 342 ms P-R-T Axes : 78 126 69 degrees QTcB Int : 441 ms Normal sinus rhythm Right axis deviation Abnormal ECG Confirmed by Ata Real ([id number]), editor producer JOSEPH COPPOLA ([id number]) on 01/17/2025 10:51:56 AM Referred By: Confirmed By: Ata Real
--- NOTE | 2025-01-15 07:31 | RAD_ITS ---
PROCEDURE: CHEST PA AND LATERAL 01/15/2025 REASON FOR EXAM: MYALGIA/ CONCERN FOR LYME TECHNIQUE: Frontal and lateral views of the chest. COMPARISON: 11/02/2024 FINDINGS: Left peripheral midlung reticular opacities may reflect atelectasis/fibrosis. No new focal consolidations. Mild pulmonary vascular congestion. Cardiac silhouette is unchanged. No acute fractures. No pleural effusion or pneumothorax. RAD/Chest PA and Lateral IMPRESSION: Left peripheral midlung reticular opacities may reflect atelectasis/fibrosis. No new focal consolidations. Mild pulmonary vascular congestion. No pleural effusion or pneumothorax. Reading Location: [id number]
--- NOTE | 2025-01-15 07:43 | EX.ED.DYSGE1 ---
HPI History of Present Illness Chief Complaint: General Illness Narrative Narrative: Chief complaint and HPI: Possible tick bite with myalgias. 59-year-old male with past medical history of COPD, GI bleed, DDD presents for evaluation of possible tick bite with myalgias. Patient states approximately 3 weeks ago he developed a bite to his left shoulder. He states he does not know if it was a tick. He never found a tick on him. He states shortly however he developed a bull's-eye rash around the area that spread onto his left chest. Patient states the rash has resolved however he started to develop myalgias in the area. He states the myalgias are in his left trapezius distribution as well as radiates up into his neck by his ear. Denies any fever, chills, lightheadedness, headache, syncope, vision changes, tinnitus, facial palsy, chest pain, shortness of breath, abdominal pain, nausea, vomiting, weakness, numbness/tingling, neurological deficit. Review of systems: See HPI Medications: As listed on the chart Allergies: As listed on the chart PFSH: Per chart Vital signs: As listed on the chart. Reviewed. Physical exam: Gen: A&O x4, NAD Head: Normocephalic, atraumatic Eyes: No sclera icterus, conjunctiva clear, PERRL, EOMI ENT: TMs clear BL, moist mucous membranes, posterior oropharynx unremarkable, uvula midline, tonsils not enlarged, no tonsillar exudates no facial asymmetry or Dove's palsy, Neck: Trachea midline, No JVD, Full ROM, No meningismus, no lymphadenopathy, no midline spinal tenderness, no bony step-off CV: RRR, no murmurs, no peripheral edema Resp: Lungs CTA BL, no w/r/c GI: Abd soft, non-distended, non-tender, no r/r/g Musc: Full ROM, no deformity. No midline spinal tenderness, no bony step-offs. Mild tenderness to palpation of the left trapezius muscle distribution-no signs of infection or trauma. strength +5/5 in all extremities Skin: Warm, dry, small puncture site to the left shoulder-patient states this is where he received his possible tick bite-no tick present-no rash or erythema migrans. No cellulitis. No rash on the rest of the body or extremities. Neuro: Alert, oriented, grossly intact, sensation intact Psych: Cooperative, appropriate mood and affect PFSH [facility] Medical History Substance abuse Anxiety Kidney stones Pancreatitis GI bleed Smoker Irregular heart beat History of intravenous drug abuse Stroke Depression History of bronchitis History of pneumonia Emphysema of lung Asthma DDD (degenerative disc disease) COPD (chronic obstructive pulmonary disease) Home Medications ?Medication ?Instructions ?Recorded ?Last Taken ?Type ascorbic acid (vitamin C) 500 mg 500 mg PO BID #60 tabs 11/05/24 01/14/25 Rx tablet buspirone 10 mg tablet 10 mg PO BID 1 month #60 tabs 11/05/24 12/30/24 Rx ferrous sulfate 325 mg (65 mg 325 mg PO DAILY 30 days #30 tabs 11/05/24 01/14/25 Rx iron) tablet (FeroSul) pantoprazole 40 mg tablet,delayed 40 mg PO BID 30 days #60 tabs 11/05/24 01/14/25 Rx release (Protonix) Allergy/AdvReac Type Severity Reaction Status Date / Time Food Allergies: Uncoded Allergy Unknown Throat Verified 01/15/25 07:15 swelling clindamycin Allergy Hives Verified 01/15/25 07:15 iodine Allergy Swelling Verified 01/15/25 07:15 Penicillins (PCN) AdvReac Upset Verified 01/15/25 07:15 Stomach Family History Mother Hypertension Father COPD (chronic obstructive pulmonary disease) Emphysema of lung Social History Smoking Status: Current every day smoker tobacco type: cigarettes Tobacco: How many years used: 45 EXAM Physical Exam Const Vital Signs: 01/15/25 07:15 01/15/25 07:23 Temperature 98.2 F Temperature Source Oral Pulse Rate 114 H Respiratory Rate 18 Respiratory Effort Normal Non-Labored Respiratory Pattern Normal Blood Pressure 167/98 H Blood Pressure Mean 121 Pulse Ox 99 Oxygen Delivery Method Room Air MDM MDM MDM Narrative Medical decision making narrative: 59-year-old male with past medical history of COPD, GI bleed, DDD presents for evaluation of possible tick bite with myalgias. Patient states approximately 3 weeks ago he developed a bite to his left shoulder. He states he does not know if it was a tick. He never found a tick on him. Shortly later states he developed a bull's-eye rash with myalgias. See physical exam findings. Patient has no neurological deficits. No signs of meningitis. No rash or cellulitis visualized. Differential diagnosis includes but is not limited to Lyme disease, myofascial spasm, electrolyte abnormality. Lyme workup ordered including basic labs, chest x-ray, blood culture, Lyme screen. Morphine and Zofran ordered for myalgia. EKG reviewed see below. Chest x-ray was personally viewed interpreted by me ED physician without pneumonia, effusion, cardiomegaly, pneumothorax. Per radiology left per- peripheral midlung reticular opacities may reflect atelectasis/fibrosis. Agree no consolidation. Patient is a tobacco abuser. CBC without leukocytosis or anemia. BMP unremarkable. Troponin unremarkable. Patient not having true chest pain therefore I do not think any delta is needed. His Lyme tests are pending and it will be several days before they result. On reevaluation, patient's heart rate has improved. Vitals are stable. His pain has improved. Recommended Tylenol and ibuprofen as needed for pain. Concern is for early Lyme disease. Patient in no acute distress. No neurological deficits. No eye, cardiovascular, nervous system complaints. No meningismus. Patient will be placed on doxycycline 100 mg twice daily x 10 days. Follow-up with PCP. Return precautions explained. Was educated to follow-up on his chest x-ray findings for his possible fibrosis. He confirmed understanding the plan. Patient stable to discharge home. EKG: Interpreted by me/EM physician: EKG shows normal sinus rhythm without any acute ischemic changes. Heart rate 100. Impression: 1. Possible tick bite with resolved reported erythema migrans 2. Myalgias 3. Concern for early Lyme disease Lab Data Labs: Laboratory Results - last 24 hr 01/15/25 07:50 WBC 7.4 RBC 5.69 Hgb 16.3 Hct 48.7 MCV 85.6 MCH 28.6 MCHC 33.5 RDW Std Deviation 40.6 RDW Coeff of Eliseo 13.2 Plt Count 312 MPV 8.7 Immature Gran % (Auto) 0.500 Neut % (Auto) 62.1 Lymph % (Auto) 20.9 Dare % (Auto) 10.7 H Eos % (Auto) 4.3 Baso % (Auto) 1.5 H Absolute Neuts (auto) 4.6 Absolute Lymphs (auto) 1.54 Nucleated RBC % 0 Sodium 137 Potassium 4.2 Chloride 99 Carbon Dioxide 25.3 Anion Gap 13 BUN 12 Creatinine 1.07 Estim Creat Clear Calc 81.59 Est GFR (MDRD) Non-Af 80 BUN/Creatinine Ratio 10.9 Glucose 96 Calcium 10.0 Troponin T High Sens 11 D Radiography Diagnostic Testing: Clinical Impression(s) from Imaging Studies Chest X-Ray 01/15/25 07:31 IMPRESSION: Left peripheral midlung reticular opacities may reflect atelectasis/fibrosis. No new focal consolidations. Mild pulmonary vascular congestion. No pleural effusion or pneumothorax. Reading Location: [facility] [address] Discharge Plan Triage Chief Complaint: General Illness ED Provider: Facundo Friedman Dx/Rx/DC Orders Prescriptions: No Action pantoprazole [Protonix] 40 mg tablet,delayed release (DR/EC) 40 mg PO BID 30 Days Qty: 60 2RF buspirone 10 mg tablet 10 mg PO BID 30 Days Qty: 60 0RF Patient Comments: needs refill waiting on pcp to call in ferrous sulfate [FeroSul] 325 mg (65 mg iron) tablet 325 mg PO DAILY 30 Days Qty: 30 2RF ascorbic acid (vitamin C) 500 mg tablet 500 mg PO BID Qty: 60 2RF Primary Care Provider: Mary Anne Servin Referrals: Jeanne Hong Navi, [employer] [[facility]] - Print Language: Telugu
[2025-01-15] MEDS: Ondansetron 4 MG/2 ML Vial IV (08:06)
[2025-01-15] MEDS: Morphine 2 MG/ML Syringe IV (08:06)
[2025-01-15 08:07] LABS: Absolute Lymphocyte Count 1.54 X10^3/uL (0.83-4.51); Absolute Neutrophil Count 4.6 X10^3/uL (2.0-7.7); Basophil# 0.11 X10^3/uL; Basophil% 1.5 % (0-1); Eosinophil# 0.32 X10^3/uL; Eosinophils% 4.3 % (0-5); Hematocrit 48.7 % (40-54); Hemoglobin 16.3 g/dL (13.0-16.5); Lymphocyte # 1.54 X10^3/ul (0.83-4.51); Lymphocyte % 20.9 % (19-41); Mean Corp Hgb Conc 33.5 g/dL (32-36); Mean Corpuscular Hgb 28.6 pg (27.0-32.0); Mean Corpuscular Volume 85.6 fL (80-94); Mean Platelet Vol. 8.7 fl (6.2-12.0); Monocyte# 0.79 X10^3/uL; Monocyte% 10.7 % (0-10); NRBC Flagged by Analyzer 0 % (0-5); Neutrophil # 4.57 X10^3/uL (2.7-7.7); Neutrophil % 62.1 % (47-70); Platelet Count 312 K/mm3 (150-450); RBC Distribution Width CV 13.2 % (11.6-14.6); RBC Distribution Width SD 40.6 fl (35.1-43.9); Red Blood Count 5.69 M/mm3 (4.6-6.2); White Blood Count 7.4 K/mm3 (4.4-11.0)
[2025-01-15 08:43] LABS: Troponin T High Sensitivity 11 ng/L (<=22)
[2025-01-15 08:59] LABS: Anion Gap 13 (5-15); BUN 12 mg/dL (4-19); BUN/Creat Ratio 10.9 RATIO (10-20); Carbon Dioxide 25.3 mmol/L (21.0-32.0); Chloride 99 mmol/L (98-108); Creatinine, Serum 1.07 mg/dL (0.70-1.20); EST Glomerular Filtration Rate 80 (>60); Estimated Creatinine Clearance 81.59 ml/min (50-250); Glucose 96 mg/dL (70-99); Potassium 4.2 mmol/L (3.3-5.1); Sodium Level 137 mmol/L (133-145)
[2025-01-15 09:15] VITALS: BP 117/86; PULSE 98; RESP 16; TEMP 37.1; O2SAT 99
[2025-01-17 14:08] LABS: Lyme IGG CIA Positive (Negative); Lyme IGM CIA Positive (Negative); Lyme Scn Total Ab w/Rflx Positive (Negative)
== END 2025-01-15 09:34 | disposition home or self-care (01) ==
PROVIDERS: Emergency Provider Surgery; Visit Provider Surgery
DX: M79.10 Myalgia, unspecified site (principal); J44.9 Chronic obstructive pulmonary disease, unspecified; R21 Rash and other nonspecific skin eruption; F32.A Depression, unspecified; F17.210 Nicotine dependence, cigarettes, uncomplicated; Z79.899 Other long term (current) drug therapy; Z86.73 Personal history of transient ischemic attack (TIA), and cerebral infarction without residual deficits
CPT/HCPCS: 71046; 80048; 84484; 85025; 86618; 87040; 93005; 96374; 96375; 96376; 99284; A4216; J2405